=== PATIENT | female | born 1955 | race African-American/Black ===

== ENCOUNTER 2016-12-02 14:56 | Inpatient (IN) | payer MEDICARE, MEDICAID, OTHER ==
[~2016-12-02] VITALS: Ht 152.4 cm; Wt 100.0 kg
[2016-12-02 15:06] VITALS: BP 140/80; PULSE 109; RESP 18; TEMP 97.7; O2SAT 99
[2016-12-02 15:14] VITALS: RESP 16; O2SAT 98
[2016-12-02] MEDS ORDERED: SODIUM CHLORIDE 0.9% FLUSH 5 ML FLUSH IVF PRN (15:15)
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
--- NOTE | 2016-12-02 15:35 | RADRPT ---
EXAM DATE/TIME: 12/02/2016 15:22 [facility] COMPARISON: No previous studies available for comparison. INDICATIONS : Patient unresponsive. MEDICAL HISTORY : None. SURGICAL HISTORY : None. ENCOUNTER: Initial ACUITY: 1 day PAIN SCORE: Non-responsive. LOCATION: Bilateral chest FINDINGS: A single view of the chest demonstrates the lungs to be symmetrically aerated without evidence of mas s, infiltrate or effusion. The cardiomediastinal contours suggest left ventricular cardiomegaly. Os seous structures are intact. CONCLUSION: No acute disease. Pancho Souza MD on December 02, 2016 at 15:33 Board Certified Radiologist. This report was verified electronically.
[2016-12-02 16:00] VITALS: BP 164/81; PULSE 112; RESP 22; O2SAT 100
[2016-12-02 16:01] LABS: BASOPHIL % 0.5 % (0.0-2.0); EOSINOPHIL # 0.1 TH/MM3 (0-0.4); EOSINOPHIL % 0.8 % (0.0-4.0); HEMATOCRIT 43.1 % (35.0-46.0); HEMO FLAGS DIFF FINAL; LYMPH % 21.8 % (9.0-44.0); LYMPHOCYTE # 1.9 TH/MM3 (1.0-4.8); MEAN CELL VOLUME 86.8 FL (80.0-100.0); MEAN CORPUSCULAR HEMOGLOBIN 28.4 PG (27.0-34.0); MEAN CORPUSCULAR HGB CONC 32.7 % (32.0-36.0); MONO % 8.6 % (0.0-8.0); NEUT % 68.3 % (16.0-70.0); PLATELET COUNT 153 TH/MM3 (150-450); RED BLOOD COUNT 4.96 MIL/MM3 (4.00-5.30); RED CELL DISTRIBUTION WIDTH 15.7 % (11.6-17.2); WHITE BLOOD COUNT 8.8 TH/MM3 (4.0-11.0)
--- NOTE | 2016-12-02 16:01 | RADRPT ---
EXAM DATE/TIME: 12/02/2016 15:35 [facility] COMPARISON: No previous studies available for comparison. INDICATIONS : Altered mental status RADIATION DOSE: 48.36 CTDIvol (mGy) MEDICAL HISTORY : Unavailable SURGICAL HISTORY : Unavailable ENCOUNTER: Initial ACUITY: 1 day PAIN SCALE: 0/10 LOCATION: cranial TECHNIQUE: Multiple contiguous axial images were obtained of the head. Using automated exposure control and adjustment of the mA and/or kV according to patient size, radiation dose was kept as low as reasonably achievable to obtain optimal diagnostic quality images. FINDINGS: CEREBRUM: The ventricles are normal for age. No evidence of midline shift, mass lesion, hemorrha ge or acute infarction. No extra-axial fluid collections are seen. POSTERIOR FOSSA: The cerebellum and brainstem are intact. The 4th ventricle is midline. The cer ebellopontine angle is unremarkable. EXTRACRANIAL: The visualized portion of the orbits is intact. SKULL: The calvaria is intact. No evidence of skull fracture. CONCLUSION: Negative for an acute process. Sulaiman Sam MD FACR on December 02, 2016 at 15:59 Board Certified Radiologist. This report was verified electronically.
[2016-12-02 16:17] LABS: BLOOD, URINE NEG (NEG); GLUCOSE,URINE NEG (NEG); HYALINE CAST, URINE 1 /lpf (RARE); KETONE, URINE 80 mg/dL (NEG); MUCUS URINE FEW /lpf (OCC); NITRITE,URINE NEG (NEG); SQUAMOUS EPITHELIAL CELL URINE <1 /hpf (0-5); URINE COLOR YELLOW (YELLW/STRAW)
[2016-12-02 16:18] LABS: COMMENT (UR) CATH-CULTURE IND; CULTURE IF INDICATED CATH CULTURE IND
[2016-12-02 16:24] LABS: APTT (PATIENT) 24.4 SEC (24.3-30.1); PROTHROMBIN TIME - PATIENT 10.8 SEC (9.8-11.6)
[2016-12-02 16:25] LABS: ANION GAP 12 MEQ/L (5-15)
[2016-12-02 16:30] LABS: ALKALINE PHOSPHATASE 65 U/L (45-117); ALT (GPT) 17 U/L (10-53); AST (GOT) 13 U/L (15-37); BLOOD UREA NITROGEN 27 MG/DL (7-18); CHLORIDE 112 MEQ/L (98-107); GLOMERULAR FILTRATION RATE 59 ML/MIN (>89); POTASSIUM 3.7 MEQ/L (3.5-5.1); SODIUM (NA) 144 MEQ/L (136-145); TOTAL BILIRUBIN ADULT 1.3 MG/DL (0.2-1.0)
[2016-12-02 16:39] LABS: ACETAMINOPHEN LESS THAN 2.0 MCG/ML (10.0-30.0); CREATINE KINASE 87 U/L (26-192)
[2016-12-02 16:58] LABS: AMPHETAMINE, URINE NEG (NEG); BARBITURATES, URINE NEG (NEG); COCAINE, URINE NEG (NEG)
[2016-12-02 17:00] VITALS: BP 160/90; PULSE 100; RESP 19; O2SAT 98
[2016-12-02] MEDS ORDERED: SODIUM CHLOR 0.9% 1000 ML INJ 1,000 ML IV ONE (17:00)
[2016-12-02] MEDS ORDERED: FLUMAZENIL 0.5 MG/5 ML VIAL IV PUSH PRN (17:15)
[2016-12-02] MEDS ORDERED: LORazepam 1 MG TAB PO PRN (17:15)
[2016-12-02] MEDS ORDERED: LORazepam 2 MG TAB PO PRN (17:15)
[2016-12-02] MEDS ORDERED: ACETAMINOPHEN 325 MG TAB PO PRN (17:15)
[2016-12-02] MEDS ORDERED: NALOXONE HCL 0.4 MG/ML AMP IV PRN (17:15)
[2016-12-02] MEDS ORDERED: ONDANSETRON HCL 4 MG/2 ML VIAL IVP PRN (17:15)
[2016-12-02] MEDS ORDERED: LORazepam 2 MG/ML VIAL IV PUSH PRN ×4 (17:15)
[2016-12-02] MEDS ORDERED: SODIUM CHLORIDE 0.9% FLUSH 5 ML FLUSH FLUSH PRN (17:15)
[2016-12-02 17:36] LABS: LACTIC ACID GHOST NOT REPORTABLE
[2016-12-02 17:45] LABS: BLOOD GAS BASE EXCESS -5.8 mmol/L (-2-2); BLOOD GAS CARBOXYHEMOGLOBIN 1.8 % (0-4); BLOOD GAS HCO3 18 mmol/L (22-26); BLOOD GAS METHEMOGLOBIN 1.8 % (0-2); BLOOD GAS O2 HGB SATURATION 93 % (90-100); BLOOD GAS OXYGEN CONTENT 18.7 Vol % (12.0-20.0); BLOOD GAS PCO2 31 mmHg (38-42); BLOOD GAS PO2 79 mmHG (61-120); BLOOD GAS TOTAL HGB 14.3 G/DL (12.0-16.0); CRITICAL VALUE NO; DRAW SITE RT RADIAL; FIO2 21 %; NUMBER OF ARTERIAL PUNCTURES 2; STAT YES; TEMP CORR TO 98.6; ULNAR PULSE PRESENT
[2016-12-02] MEDS: SODIUM CHLOR 0.9% 1000 ML INJ 1,000 ML IV SCH (17:57)
[2016-12-02 18:00] VITALS: BP 149/75; PULSE 94; RESP 18
[2016-12-02 18:48] LABS: BETA-HYDROXYBUTYRATE 1.25 MMOL/L (0.00-0.39); MAGNESIUM 2.4 MG/DL (1.5-2.5)
[2016-12-02] MEDS: SODIUM CHLORIDE 0.9% FLUSH 5 ML FLUSH FLUSH SCH (20:51)
--- NOTE | 2016-12-02 22:59 | EKG ---
Date Performed: 12/02/2016 Time Performed: 15:08:25 PTAGE: 61 years EKG: Sinus rhythm WITH OCCASIONAL SUPRAVENTRICULAR PREMATURE COMPLEXES BORDERLINE LEFT AXIS DEVIATION MODERATE T-WAVE ABNORMALITY, CONSIDER ANTERIOR ISCHEMIA ABNORMAL ECG NO PREVIOUS TRACING DOCTOR: Angel Hemphill Interpretating Date/Time 12/02/2016 22:58:12
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
[2016-12-03] VITALS: BP 128/59; PULSE 68; RESP 18; TEMP 97.2; O2SAT 99
[2016-12-03 03:02] LABS: AUTOMATED NEUTROPHIL # 5.3 TH/MM3 (1.8-7.7); BASOPHIL % 0.6 % (0.0-2.0); EOSINOPHIL # 0.2 TH/MM3 (0-0.4); HEMATOCRIT 43.1 % (35.0-46.0); HEMO FLAGS DIFF FINAL; LYMPH % 25.4 % (9.0-44.0); LYMPHOCYTE # 2.1 TH/MM3 (1.0-4.8); MEAN CELL VOLUME 87.4 FL (80.0-100.0); MEAN CORPUSCULAR HEMOGLOBIN 28.4 PG (27.0-34.0); MEAN CORPUSCULAR HGB CONC 32.5 % (32.0-36.0); MONO % 8.5 % (0.0-8.0); NEUT % 63.5 % (16.0-70.0); PLATELET COUNT 121 TH/MM3 (150-450); RED BLOOD COUNT 4.93 MIL/MM3 (4.00-5.30); RED CELL DISTRIBUTION WIDTH 15.6 % (11.6-17.2); WHITE BLOOD COUNT 8.3 TH/MM3 (4.0-11.0)
[2016-12-03] MEDS: SODIUM CHLOR 0.9% 1000 ML INJ 1,000 ML IV SCH (03:13)
[2016-12-03 03:19] LABS: ALKALINE PHOSPHATASE 61 U/L (45-117); TOTAL BILIRUBIN ADULT 1.4 MG/DL (0.2-1.0)
[2016-12-03 03:27] LABS: ALT (GPT) 19 U/L (10-53); ANION GAP 12 MEQ/L (5-15); AST (GOT) 20 U/L (15-37); BICARBONATE 20.3 MEQ/L (21.0-32.0); BLOOD UREA NITROGEN 22 MG/DL (7-18); CHLORIDE 117 MEQ/L (98-107); GLOMERULAR FILTRATION RATE 97 ML/MIN (>89); SODIUM (NA) 149 MEQ/L (136-145)
--- NOTE | 2016-12-03 07:19 | PD ---
Data Data Last Documented VS Vital Signs Date Time Temp Pulse Resp B/P Pulse Ox O2 Delivery O2 Flow Rate FiO2 12/02/16 17:00 100 19 160/90 98 12/02/16 16:00 Room Air 12/02/16 15:06 97.7 Orders Electrocardiogram (12/02/16 ) Ammonia (12/02/16 15:09) Complete Blood Count With Diff (12/02/16 15:09) Comprehensive Metabolic Panel (12/02/16 15:09) Creatine Kinase (Cpk) (12/02/16 15:09) Prothrombin Time / Inr (Pt) (12/02/16 15:09) Act Partial Throm Time (Ptt) (12/02/16 15:09) Troponin I (12/02/16 15:09) Lactic Acid Sepsis Protocol (12/02/16 15:09) Urinalysis - C+S If Indicated (12/02/16 15:09) Blood Culture (12/02/16 15:09) Chest, Single Ap (12/02/16 15:09) Ct Brain W/O Iv Contrast(Rout) (12/02/16 15:09) Blood Glucose (12/02/16 15:09) Ecg Monitoring (12/02/16 15:09) Iv Access Insert/Monitor (12/02/16 15:09) Oximetry (12/02/16 15:09) Sodium Chloride 0.9% Flush (Ns Flush) (12/02/16 15:15) Drug Screen, Random Urine (12/02/16 15:09) Alcohol (Ethanol) (12/02/16 15:09) Salicylates (Aspirin) (12/02/16 15:09) Tylenol (Acetaminophen) (12/02/16 15:09) Cath For Specimen (12/02/16 15:09) Urine Culture (12/02/16 15:50) Sodium Chlor 0.9% 1000 Ml Inj (Ns 1000 M (12/02/16 17:00) Admit Order (Ed Use Only) (12/02/16 17:14) Labs Laboratory Tests Test 12/02/16 12/02/16 12/02/16 15:20 15:45 15:50 White Blood Count 8.8 TH/MM3 Red Blood Count 4.96 MIL/MM3 Hemoglobin 14.1 GM/DL Hematocrit 43.1 % Mean Corpuscular Volume 86.8 FL Mean Corpuscular Hemoglobin 28.4 PG Mean Corpuscular Hemoglobin 32.7 % Concent Red Cell Distribution Width 15.7 % Platelet Count 153 TH/MM3 Mean Platelet Volume 10.5 FL Neutrophils (%) (Auto) 68.3 % Lymphocytes (%) (Auto) 21.8 % Monocytes (%) (Auto) 8.6 % Eosinophils (%) (Auto) 0.8 % Basophils (%) (Auto) 0.5 % Neutrophils # (Auto) 6.0 TH/MM3 Lymphocytes # (Auto) 1.9 TH/MM3 Monocytes # (Auto) 0.8 TH/MM3 Eosinophils # (Auto) 0.1 TH/MM3 Basophils # (Auto) 0.0 TH/MM3 CBC Comment DIFF FINAL Differential Comment Prothrombin Time 10.8 SEC Prothromb Time International 1.0 RATIO Ratio Activated Partial 24.4 SEC Thromboplast Time Sodium Level 144 MEQ/L Potassium Level 3.7 MEQ/L Chloride Level 112 MEQ/L Carbon Dioxide Level 20.0 MEQ/L Anion Gap 12 MEQ/L Blood Urea Nitrogen 27 MG/DL Creatinine 1.12 MG/DL Estimat Glomerular Filtration 59 ML/MIN Rate Random Glucose 113 MG/DL Serum Osmolality 309 MOSM/KG Lactic Acid Level 2.3 mmol/L Calcium Level 9.2 MG/DL Total Bilirubin 1.3 MG/DL Aspartate Amino Transf 13 U/L (AST/SGOT) Alanine Aminotransferase 17 U/L (ALT/SGPT) Alkaline Phosphatase 65 U/L Ammonia 12 MCMOL/L Total Creatine Kinase 87 U/L Troponin I LESS THAN 0.02 NG/ML Total Protein 8.0 GM/DL Albumin 3.8 GM/DL Salicylates Level LESS THAN 1.7 MG/DL Acetaminophen Level LESS THAN 2.0 MCG/ML Ethyl Alcohol Level LESS THAN 3 MG/DL B-Hydroxybutyrate 1.69 MMOL/L Urine Opiates Screen NEG Urine Barbiturates Screen NEG Urine Amphetamines Screen NEG Urine Benzodiazepines Screen NEG Urine Cocaine Screen NEG Urine Cannabinoids Screen NEG Urine Color YELLOW Urine Turbidity CLEAR Urine pH 5.0 Urine Specific [place] 1.025 Urine Protein TRACE mg/dL Urine Glucose (UA) NEG mg/dL Urine Ketones 80 mg/dL Urine Occult Blood NEG Urine Nitrite NEG Urine Bilirubin NEG Urine Urobilinogen 2.0 MG/DL Urine Leukocyte Esterase NEG Urine WBC 1 /hpf Urine Squamous Epithelial <1 /hpf Cells Urine Hyaline Casts 1 /lpf Urine Mucus FEW /lpf Microscopic Urinalysis Comment CATH-CULTURE IND MDM Supervised Visit with THOM: Yes Narrative Course The history, exam, and medical decision-making in the associated midlevel provider note were completed with my assistance. I reviewed and agree with the findings presented. I attest that I had a [id number] encounter with the patient on the same day, and personally performed and documented my assessment and findings in the medical record. *My assessment and Findings: This is a 61-year-old female who was found in bed in her home which reportedly was in disarray, with empty bottles of isopropyl alcohol, who is confused and altered. On exam she does follow commands and have limited interaction with the examiner but does not answer questions appropriately. Her exam is nonfocal. Labs were obtained which demonstrate a normal osmolal gap of 5, and a normal anion gap so I doubt a toxic alcohol ingestion. CT of the head was reassuring. Differential is broad including stroke, toxic ingestion, and psychiatric disease. Patient will be admitted for further workup. Diagnosis Primary Impression: Altered mental status Qualified Code: R41.82 - Altered mental status, unspecified altered mental status type Scripts Unable to Obtain Active Prescriptions or Reported Meds Keesha Sanders MD Dec 03, 2016 07:19
[2016-12-03 08:00] VITALS: BP 117/66; PULSE 73; RESP 18; TEMP 97.6; O2SAT 97
[2016-12-03] MEDS: SODIUM CHLORIDE 0.9% FLUSH 5 ML FLUSH FLUSH SCH ×2 (08:55→19:27)
[2016-12-03 12:00] VITALS: BP 120/60; PULSE 77; RESP 17; TEMP 97.5; O2SAT 98
--- NOTE | 2016-12-03 14:23 | PD.CONS ---
Provisional Diagnosis Admission Date Dec 02, 2016 at 17:15 [place] I. Hypoactive delirium, r/O psychosis, R/O MDD History of Present Illness Service Psychiatry Consult Requested By Primary Care Physician Unknown HPI The patient is a 61 -year-old [place], unknown social history, no psychiatric history, who presents to the emergency room on 12/02/2016 with altered mental status. According to the emergency room documentation, the patients landlord called 911 because smoke was coming from her apartment. The patient was found lying in bed and not responding to emergency medical providers with empty bottles of isopropyl alcohol and other alcohol around. They found popcorn on the stove and her home was disheveled with a bedside commode next to her bed that she had been using. Review of Chest x-ray showed no acute disease. CT of the brain was negative for any acute process;Vital signs quite normal . CBC was unremarkable. ABG was without significant abnormality. Electrolytes were unremarkable except chloride was slightly elevated at 110 initially. Ammonia level was normal at 12. Urine with a large amount of ketones but was otherwise unremarkable. Salicylates less than 1.7 and acetaminophen level less than 2.0 are within normal parameters. Serum alcohol was less than 3. Urine toxicology screen is negative. A urine culture is pending. Patient consulted to psychiatry due to potential psychosis. On psychiatric evaluation patient is found laying down in her bed, she is alert, but distant and disengaged, she has a fair eye contact, but she seems to be selectively mute. She can answer some questions by yes or no, but stares and don't answer most of the questions. Review of Systems ROS Limitations: Unresponsive, Uncooperative Past Family Social History Coded Allergies: UNOBTAINABLE (Unverified , 12/02/16) Unable to Obtain Active Prescriptions or Reported Meds Current Medications Medications (Trade) Dose Ordered Sig/Telma Route Start Time Stop Time Status Last Admin (NS 1000 ml Inj) 1,000 ml @ 100 mls/hr Q10H IV 12/02/16 17:13 12/02/16 17:57 (NS Flush) 2 ml UNSCH PRN FLUSH 12/02/16 17:15 (NS Flush) 2 ml BID FLUSH 12/02/16 21:00 (Tylenol) 650 mg Q4H PRN PO 12/02/16 17:15 (Zofran Inj) 4 mg Q6H PRN IVP 12/02/16 17:15 (Narcan Inj) 0.4 mg UNSCH PRN IV 12/02/16 17:15 (Romazicon Inj) 0.2 mg Q1M PRN IV PUSH 12/02/16 17:15 (Ativan) 1 mg Q4H PRN PO 12/02/16 17:15 (Ativan Inj) 1 mg Q4H PRN IV PUSH 12/02/16 17:15 (Ativan) 2 mg Q2H PRN PO 12/02/16 17:15 (Ativan Inj) 2 mg Q2H PRN IV PUSH 12/02/16 17:15 (Ativan Inj) 2 mg Q1H PRN IV PUSH 12/02/16 17:15 (Ativan Inj) 2 mg Q15M PRN IV PUSH 12/02/16 17:15 (SEROquel) 25 mg BID@09,12 PO 12/04/16 09:00 UNV Physical Exam Vital Signs Vital Signs Date Time Temp Pulse Resp B/P Pulse Ox O2 Delivery O2 Flow Rate FiO2 12/03/16 12:00 97.5 77 17 120/60 98 12/02/16 18:00 Room Air Mental Status Examination Limited due to the lack of cooperation of the patient Appearance Overweight woman, [facility], age appearing, malodorous, disheveled, non-cooperative, mute, guarded Assessment & Plan Problem List: (1) Altered mental status Assessment & Plan: Patient does not cooperate with psychiatric assessment and refused to provide information. Unable to determined if patient is selectively mute, psychotic, depressed or with hypoactive delirium. Seems to be that the patient was not taking care of herself, as per EMS report patient was living in disheveled conditions which might point out to psychosis/ delirium There is no record of psychiatric history in [facility], no collateral information available at this moment Patient seems to be medically stable so far, no major abnormalities found. Will order Seroquel 25 mg twice a day which might be helpful in case of psychosis/delirium knockdown worker intervention to try to get collateral information Even though patient doesn't seem to be agitated, aggressive, disorganized, she might benefit of psychiatric admission for stabilization, Sitter recommended for safety We'll continue follow-up ICD Code: R41.82 Assessment & Plan Estimated LOS: days Problem Qualifiers (1) Altered mental status: Qualified Code: R41.82 - Altered mental status, unspecified altered mental status type Sami Heller MD Dec 03, 2016 14:23
[2016-12-03 16:00] VITALS: BP 128/59; PULSE 78; RESP 19; TEMP 99.3; O2SAT 96
--- NOTE | 2016-12-03 16:46 | HHI.PR ---
Subjective Remarks The patient initially started to nod yes or no but then refused to answer any questions. She is awake and alert. Objective Vitals Vital Signs Date Time Temp Pulse Resp B/P Pulse Ox O2 Delivery O2 Flow Rate FiO2 12/03/16 16:00 99.3 78 19 128/59 96 12/03/16 12:00 97.5 77 17 120/60 98 12/03/16 08:00 97.6 73 18 117/66 97 12/03/16 00:00 97.2 68 18 128/59 99 12/02/16 18:00 94 18 149/75 Room Air 12/02/16 17:00 100 19 160/90 98 I/O 12/02/16 12/02/16 12/02/16 12/03/16 12/03/16 12/03/16 07:00 15:00 23:00 07:00 15:00 23:00 Intake Total 240 ml 360 ml 950 ml Output Total 600 ml 250 ml Balance -360 ml 110 ml 950 ml Intake Oral 240 ml 360 ml IV Total 950 ml Output Urine Total 600 ml 250 ml # Bowel Movements 0 0 Result Diagram: 12/03/16 0206 12/03/16 0206 Imaging Last Impressions Head CT 12/02/16 1509 Signed Impressions: Service Date/Time: Friday, December 02, 2016 15:35 - CONCLUSION: Negative for an acute process. Sulaiman Sam MD FACR Chest X-Ray 12/02/16 1509 Signed Impressions: Service Date/Time: Friday, December 02, 2016 15:22 - CONCLUSION: No acute disease. Pancho Souza MD Objective Remarks GENERAL: Obese female in no acute distress. CARDIOVASCULAR: Normal rate and regular rhythm without murmurs, gallops, or rubs. RESPIRATORY: Breath sounds equal and clear to auscultation bilaterally. GASTROINTESTINAL: Abdomen soft, non-tender, non-distended. Normal active bowel sounds MUSCULOSKELETAL: Extremities without cyanosis, or edema. NEURO: Awake and alert but refused to answer any questions. PSYCH: Withdrawn. Appear to selectively refused to answer questions or cooperate. A/P Problem List: (1) Encephalopathy ICD Code: G93.40 Status: Acute (2) Acute renal failure ICD Code: N17.9 Status: Acute Assessment and Plan 61 y/o female who presents to the emergency room on 12/02/2016 with altered mental status. According to the emergency room documentation, the patients landlord called 911 because he noticed smoke was coming from her apartment. The patient was found lying in bed and not responding to emergency medical providers with empty bottles of isopropyl alcohol and other alcohol around. They found popcorn on the stove and her home was disheveled with a bedside commode next to her bed that she had been using. The patient was reportedly last seen on November 25, 2016. Encephalopathy -it is unclear what this patient's baseline is. Isopropyl alcohol or other alcohol ingestion might have contributed. However now her symptoms seems to be more psychiatric. - She did have ketonuria and elevated beta hydroxybutyrate. Therefore she might have taken some alcohol but this appears to be mild at this point and resolving. - Blood and urine cultures negative - Appreciate psychiatry following. Agree it appears the patient will need inpatient psychiatry. She was started on Seroquel. Monitor response - Follow-up BMP in a.m. Acute renal failure -resolved with IV hydration. - Avoid nephrotoxins GI prophylaxis: Stool softener PRN constipation. DVT PPx: Ewa Mcmillan MD Dec 03, 2016 16:46
[2016-12-03 20:00] VITALS: BP 129/74; PULSE 87; RESP 20; TEMP 98.3; O2SAT 95
[2016-12-04] VITALS: BP 136/71; PULSE 86; RESP 20; TEMP 98; O2SAT 97
[2016-12-04] MEDS ORDERED: SODIUM CHLORID 0.9% 500 ML INJ 500 ML IV ONE (03:45)
[2016-12-04 05:37] LABS: HEMATOCRIT 41.3 % (35.0-46.0); MEAN CELL VOLUME 88.6 FL (80.0-100.0); MEAN CORPUSCULAR HEMOGLOBIN 28.8 PG (27.0-34.0); MEAN CORPUSCULAR HGB CONC 32.5 % (32.0-36.0); PLATELET COUNT 120 TH/MM3 (150-450); RED BLOOD COUNT 4.66 MIL/MM3 (4.00-5.30); RED CELL DISTRIBUTION WIDTH 15.4 % (11.6-17.2); REVIEW FLAG FINAL; WHITE BLOOD COUNT 5.8 TH/MM3 (4.0-11.0)
[2016-12-04 05:50] LABS: BICARBONATE 19.5 MEQ/L (21.0-32.0); POTASSIUM 3.7 MEQ/L (3.5-5.1)
[2016-12-04 08:38] VITALS: BP 140/76; PULSE 60; RESP 20; TEMP 97.8
[2016-12-04] MEDS: QUEtiapine FUMARATE 25 MG TAB PO SCH ×3 (09:00→11:11)
[2016-12-04] MEDS: SODIUM CHLORIDE 0.9% FLUSH 5 ML FLUSH FLUSH SCH (09:18)
--- NOTE | 2016-12-04 09:21 | HHI.PR ---
Subjective Remarks The patient still refusing to talk. She is barely eating. When I ask her about her name she showed me her hospital ID band. She has been accepted to the med psych unit. Objective Vitals Vital Signs Date Time Temp Pulse Resp B/P Pulse Ox O2 Delivery O2 Flow Rate FiO2 12/04/16 08:38 97.8 60 20 140/76 12/04/16 00:00 98.0 86 20 136/71 97 12/03/16 20:00 98.3 87 20 129/74 95 12/03/16 16:00 99.3 78 19 128/59 96 12/03/16 12:00 97.5 77 17 120/60 98 I/O 12/03/16 12/03/16 12/03/16 12/04/16 12/04/16 12/04/16 07:00 15:00 23:00 07:00 15:00 23:00 Intake Total 240 ml 360 ml 1190 ml 500 ml Output Total 600 ml 250 ml 300 ml 0 ml Balance -360 ml 110 ml 890 ml 500 ml Intake Oral 240 ml 360 ml 240 ml 0 ml IV Total 950 ml 500 ml Output Urine Total 600 ml 250 ml 300 ml 0 ml Bladder Scan Volume Amount 400 ml # Bowel Movements 0 0 Result Diagram: 12/04/1651512/04/16515 Objective Remarks GENERAL: Obese female in no acute distress. CARDIOVASCULAR: Normal rate and regular rhythm without murmurs, gallops, or rubs. RESPIRATORY: Breath sounds equal and clear to auscultation bilaterally. GASTROINTESTINAL: Abdomen soft, non-tender, non-distended. Normal active bowel sounds MUSCULOSKELETAL: Extremities without cyanosis, or edema. NEURO: Awake and alert but refused to answer any questions. PSYCH: Withdrawn. Appear to selectively refused to answer questions or cooperate. A/P Problem List: (1) Encephalopathy ICD Code: G93.40 Status: Acute (2) Acute renal failure ICD Code: N17.9 Status: Acute Assessment and Plan 61 y/o female who presents to the emergency room on 12/02/2016 with altered mental status. According to the emergency room documentation, the patients landlord called 911 because he noticed smoke was coming from her apartment. The patient was found lying in bed and not responding to emergency medical providers with empty bottles of isopropyl alcohol and other alcohol around. They found popcorn on the stove and her home was disheveled with a bedside commode next to her bed that she had been using. The patient was reportedly last seen on November 25, 2016. Encephalopathy -it is unclear what this patient's baseline is. Isopropyl alcohol or other alcohol ingestion might have contributed. However now her symptoms seems to be more psychiatric. - She did have ketonuria and elevated beta hydroxybutyrate. Therefore she might have taken some alcohol but this appears to be mild at this point and resolving. - Blood and urine cultures negative - Appreciate psychiatry following. I agree the patient will be better serve at the med psych unit at this point. Acute renal failure -resolved with IV hydration. Discharge to med psych unit in stable condition Activity: Regular as tolerated Diet: Heart healthy as tolerated Follow-up: We'll need follow-up with PCP Meds: No new medications. She has been refusing to take Seroquel ordered by psychiatry. Ewa Pereira MD Dec 04, 2016 09:21
[2016-12-04] MEDS ORDERED: D5-1/2 NS + KCL 10 MEQ INJ 1,000 ML IV SCH (10:00)
[2016-12-04 12:48] VITALS: BP 111/71; PULSE 80; RESP 18; TEMP 99.7; O2SAT 95
[2016-12-04 17:27] VITALS: BP 114/74; PULSE 78; RESP 18; TEMP 97.7; O2SAT 95
--- NOTE | 2016-12-04 17:31 | EKG ---
Date Performed: 12/03/2016 Time Performed: 20:54:13 PTAGE: 61 years EKG: Sinus rhythm WITH FREQUENT SUPRAVENTRICULAR PREMATURE COMPLEXES BORDERLINE LEFT AXIS DEVIATION LOW QRS VOLTAGE IN PRECORDIAL LEADS MODERATE INTRAVENTRICULAR CONDUCTION DELAY MODERATE T-WAVE ABNORMALITY, CONSIDER AN TEROLATERAL ISCHEMIA Since previous tracing, no significant change noted ABNORMAL ECG PREVIOUS TRACING : 12/02/2016 15.08 DOCTOR: Zully Tse Interpretating Date/Time 12/04/2016 17:28:49
[2016-12-05] MEDS ORDERED: LABETALOL HCL 100 MG/20 ML VIAL IV PRN (05:45)
[2016-12-07] MEDS ORDERED: RESP: ALBUTEROL 2.5 MG/IPRATROPIUM 0.5 MG NEB (PRN) ONE (07:01)
== END 2016-12-04 17:52 | DRG 682 ==
LOC: NEPE 14:56 → NEDA 17:15 → N07B 22:20
PROVIDERS: ADMIT Family Medicine; ATTEND Family Medicine
DX: N17.9 Acute kidney failure, unspecified (principal); G93.40 Encephalopathy, unspecified; Z68.41 Body mass index [BMI] 40.0-44.9, adult; R82.4 Acetonuria; E66.01 Morbid (severe) obesity due to excess calories; E86.0 Dehydration; F94.0 Selective mutism
CPT/HCPCS: 36600; 70450; 71010; 80048; 80053; 80307; 80320; 80329; 81001; 82010; 82140; 82550; 82805; 83605; 83735; 83930; 84484; 85025; 85027; 85610; 85730; 87040; 87086; 93005; 96374; G0480; J3480; J7030; J7040; P9612

== ENCOUNTER 2016-12-04 14:35 | Inpatient (IN) | payer OTHER, MEDICARE ==
[2016-12-04] MEDS ORDERED: LORazepam 2 MG/ML VIAL IM PRN (18:45)
[2016-12-04] MEDS ORDERED: LORazepam 1 MG TAB PO PRN (18:45)
[2016-12-04] MEDS ORDERED: ALUMINUM/MAGNESIUM/SIMETH 30 ML CUP PO PRN (18:45)
[2016-12-04] MEDS ORDERED: MAGNESIUM HYDROXIDE SUSP 30 ML CUP PO PRN (18:45)
[2016-12-04 18:59] VITALS: BP 135/68; PULSE 85; RESP 16; TEMP 100.1; O2SAT 95
[2016-12-04] MEDS: REMOVE OLD NICOTINE PATCH T-DERMAL SCH (20:34)
[2016-12-05 04:50] VITALS: BP_SYST 190; BP_SYST 210; BP_DIAS 100; BP_DIAS 130; PULSE 123; RESP 16; TEMP 97.7; O2SAT 97
[2016-12-05 05:00] VITALS: O2SAT 95
[2016-12-05] MEDS ORDERED: hydrALAZINE HCL 20 MG/ML VIAL IV PUSH ONE (05:15)
--- NOTE | 2016-12-05 05:54 | HHI.PR ---
Addendum to Inpatient Note Addendum Reason: Additional Documentation Additional Information S: Residents paged for eHctor for hypertension with a systolic blood pressure over 200. Went to evaluate patient on med psych floor. Patient is reportedly mute at baseline. When we arrived to patient room, Hector nurse at bedside. After adjusting blood pressure cuff and increasing blood pressure cuff size, patient relatively normotensive at 150s over 70s. O: Vitals reviewed. After adjusting blood pressure cuff, patient normotensive at 150s over 70s. Pulse elevated at 100s to 110s. Patient satting well on room air. Gen.: Obese female lying in bed half asleep and in no acute distress HEENT: Normocephalic atraumatic. Extraocular motions intact. Moist mucous membranes. Cardiovascular: Tachycardic rate, regular rhythm. Respiratory: Lungs clear to auscultation bilaterally Skin/extremities: Warm and well perfused without any edema Neuro/psych: Patient mute at baseline. Not verbally responding to any questions. Imaging: Patient had recent dry CT of head, which was negative for any acute process. A/P: 61-year-old female who was admitted for isopropyl alcohol ingestion, possible toxic overdose, presented with hypertension. From chart review, patient does appear to have some labile blood pressures. Elevated blood pressures seem to correlate with tachycardia. Differential diagnosis includes alcohol withdrawal, alcoholic neuropathy with autonomic dysfunction, other neurological abnormality causing autonomic dysfunction, or human error in applying blood pressure cuff. Prior to transfer to [facility] floor, was on CIWA protocol but did not require any Ativan. Per nurse report, patient would've scored a 0 on CIWA scoring because patient has not had any sweating, tremor, agitation, etc. Increased vital signs monitoring from every 12 hours to every 4 hours Patient seen and discussed with Dr. Sergio Marte. Sergio Hale MD R1 Dec 05, 2016 05:54
[2016-12-05] MEDS: NICOTINE 21 MG/24 HR PATCH T-DERMAL SCH (09:00)
--- NOTE | 2016-12-05 11:23 | HHI.HP ---
Provisional Diagnosis Admission Date Dec 04, 2016 at 14:35 [place] I. Unspecified psychosis vs MDD with psychotic features [place] II. R/O personality disorder Certification of Person's Competence To Provide Express and Informed Consent I have personally examined Sherron Anne , a person being served at [facility] on, Dec 05, 2016 11:18. Express and informed consent means consent voluntarily given in writing, by a competent person, after sufficient explanation and disclosure of the subject matter involved to enable the person to make a knowing and willful decision without any element of force, fraud, deceit, duress, or other form of constraint or coercion. This person is 18 years of age or older, is not now known to be incompetent to consent to treatment with a guardian advocate, and does not have a health care surrogate or proxy currently making medical treatment decisions. I have found this person to be one of the following: [] Competent to provide express and informed consent, as defined above, for voluntary admission to this facility and is competent to provide express and informed consent for treatment. He/she has the consistent capacity to make well reasoned, willful, and knowing decisions concerning his or her medical or mental health treatment. The person fully and consistently understands the purpose of the admission for examination/placement and is fully capable of personally exercising all rights assured [place] [X] Incompetent to provide express and informed consent to voluntary admission, and this is incompetent to provide express and informed consent to treatment. The person must be transferred to involuntary status and a petition for a guardian advocate filed with the Circuit Court. [] Refusing to provide express and informed consent to voluntary admission but is competent to provide express and informed consent for treatment. The person must be discharged or transferred to involuntary status. Form shall be completed within 24 hours of a person's arrival at the receiving facility and filed in the clinical record of each person: 1. Admitted on a voluntary basis 2. Permitted to provide express and informed consent to his/her own treatment 3. Allowed to transfer from involuntary to voluntary status 4. Prior to permitting a person to consent to his or her own treatment after having been previously found incompetent to consent to treatment. History of Present Illness Capacity: Lacks Capacity HPI The patient is a 61 year-old woman with a known psychiatric history, who was admitted for isopropyl alcohol ingestion, possible toxic overdose, presented with hypertension. Seen by me initially on 12/03/2016 and no changes in her mental status and psychiatric presentation have happened since then. Patient is still refusing to talk, she is alert, attends she has a good eye contact, she does her primary necessities, she feed herself, she goes to the back she is compliant with medication on and off, but she refuses to talk. Other than this selective mutism, the patient does not display aggressive or disorganized behavior, agitation, internal preoccupation, self- talking at the moment of this evaluation. Last night Halicat was activated due to hypertensive crisis. During this evaluation there is no evidence of alcohol withdrawal symptoms. Past Family Social History Coded Allergies: UNOBTAINABLE (Unverified , 12/02/16) Unable to Obtain Active Prescriptions or Reported Meds Current Medications Medications (Trade) Dose Ordered Sig/Telma Route Start Time Stop Time Status Last Admin (Ativan) 1 mg Q6H PRN PO 12/04/16 18:45 Hold (Ativan Inj) 1 mg Q6H PRN IM 12/04/16 18:45 (Tylenol) 650 mg Q4H PRN PO 12/04/16 18:45 (Milk Of Magnesia Liq) 30 ml DAILY PRN PO 12/04/16 18:45 (Mag-Al Plus Susp Liq) 30 ml Q6H PRN PO 12/04/16 18:45 (Habitrol 21 Mg Patch.24 Hr) 1 patch DAILY T-DERMAL 12/05/16 09:00 Miscellaneous Information 1 HS T-DERMAL 12/04/16 21:00 12/04/16 20:34 (SEROquel) 25 mg BID@09,12 PO 12/05/16 12:00 UNV Social History unknown Physical Exam Vital Signs Vital Signs Date Time Temp Pulse Resp B/P Pulse Ox O2 Delivery O2 Flow Rate FiO2 12/05/16 05:00 95 21 12/05/16 04:50 97.7 123 16 190/130 210/100 I/O 12/04/16 12/04/16 12/05/16 08:00 16:00 00:00 Intake Total 120 ml Balance 120 ml Lab Results Labs reviewed Mental Status Examination Mental status limited due to the lack of cooperation Appearance Overweight woman, hospital pajamas, age appearing, poor hygiene , uncooperative, selectively mute, but she is calm Speech: Other (selectively mute) Assessment & Plan Problem List: (1) Unspecified psychosis Assessment & Plan: The patient is a 61 year-old woman with a known psychiatric history, who was admitted for isopropyl alcohol ingestion, possible toxic overdose, presented with hypertension. Seen by me initially on and no changes in her mental status and psychiatric presentation have happened since then. Patient is still refusing to talk, she is alert, attends she has a good eye contact, she does her primary necessities, she feed herself, she goes to the back she is compliant with medication on and off, but she refuses to talk. Other than this selective mutism, the patient does not display aggressive or disorganized behavior, agitation, internal preoccupation, self-talking at the moment of this evaluation. At this point is difficult to define the etiology of patient mutism, unknown if the cause of psychotic/mood/ personality. We'll continue monitoring closely the patient. Support, motivation psycho education provided. Collateral information is crucial in order to complete the psychiatric assessment and understanding what is going on. We will start Seroquel 25 mg twice a day to help with a potential underlying psychosis/mood, but also to help the patient with sleep. dimension [employer] worker intervention for psychotherapy, psychosocial assessment, try to find family members. We will consider psychiatric for second opinion, also will consult hospitalist for uncontrolled hypertension. ICD Code: F29 Assessment & Plan Estimated LOS: Sami Hartley MD Dec 05, 2016 11:23
[2016-12-05] MEDS: QUEtiapine FUMARATE 25 MG TAB PO SCH (12:00)
[2016-12-05] MEDS ORDERED: cloNIDine HCL 0.1 MG TAB PO PRN (15:30)
--- NOTE | 2016-12-05 16:06 | HHI.PYPN ---
Subjective Remarks This is a request for a second opinion for Dr. Olivarez. Patient was seen, admission note reviewed and case discussed with nursing. Pt was selectively mute with doctor yesterday and was initially talkative saying she had mild hip pain. When I began asking about the circumstances of her admission, she became mute again. WHen asked if it was suicide it looked like she wanted to cry. Would not answer questions about psychosis. Patient is selective with medications, but taking her antiphypertensives at this time. BP has improved. 170/90, hr-120 Objective Alert: Yes [place]: Person Mood: Depressed, Oppositional Affect: Flat Memory Intact: Immediate Hallucinations: Other (would not answer) Delusions: No Delusion Type: Other (would not answer) Suicidal: Ideation (would not answer) Homicidal: Ideation (would not answer) Insight/Judgement poor Vitals/IOs Vital Signs Date Time Temp Pulse Resp B/P Pulse Ox O2 Delivery O2 Flow Rate FiO2 12/05/16 05:00 95 21 12/05/16 04:50 97.7 123 16 190/130 210/100 Intake and Output 12/04/16 12/04/16 12/05/16 08:00 16:00 00:00 Intake Total 120 ml Balance 120 ml Assessment & Plan Problem List: (1) Unspecified psychosis ICD Code: F29 Assessment & Plan I agree with first opinion to continue petition, criteria include possible suicidal attempt and possible psychosis. HR remains elevated, EKG was ordered. 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 Justification for Cont. Inpt. would decompensate in a less restrictive setting. Fran Cabral DO Dec 05, 2016 16:06
--- NOTE | 2016-12-05 16:44 | PD.CONS ---
HPI Service [facility] Consult Requested By Psychiatric team Reason for Consult Uncontrolled hypertension Primary Care Physician Unknown Diagnoses: History of Present Illness This is a 61-year-old female patient who was originally admitted to [facility] on 12/02/2016 after suspected isopropyl alcohol ingestion. Is not forthcoming with information. The only thing patient tells us is that, "I just want to rest." Patient unable to find any meaningful information. Information gathered from patient as well as prior computerized charting. Patient is currently an inpatient psychiatric center with been consulted for uncontrolled hypertension. Patient's last available blood pressure reading was at 0450 this morning 190/130 and 210/100, with heart rate of 123 temperature of 97.7 and pulse oxygenation 97% on room air. Per nurses patient has been refusing to have vital signs checked.. Patient checked manually by RN will return in the room reading of 170/90. Review of Systems ROS Limitations: Uncooperative, Refused, Poor Historian Past Family Social History Allergies: Coded Allergies: UNOBTAINABLE (Unverified , 12/02/16) Past Medical History Unable to obtain Past Surgical History Unable to obtain Reported Medications Unable to obtain Active Ordered Medications Current Medications Medications (Trade) Dose Ordered Sig/Telma Route Start Time Stop Time Status Last Admin (Ativan) 1 mg Q6H PRN PO 12/04/16 18:45 Hold (Ativan Inj) 1 mg Q6H PRN IM 12/04/16 18:45 (Tylenol) 650 mg Q4H PRN PO 12/04/16 18:45 (Milk Of Magnesia Liq) 30 ml DAILY PRN PO 12/04/16 18:45 (Mag-Al Plus Susp Liq) 30 ml Q6H PRN PO 12/04/16 18:45 (Habitrol 21 Mg Patch.24 Hr) 1 patch DAILY T-DERMAL 12/05/16 09:00 Miscellaneous Information 1 HS T-DERMAL 12/04/16 21:00 12/04/16 20:34 (SEROquel) 25 mg BID@09,12 PO 12/05/16 12:00 (Catapres) 0.1 mg Q6H PRN PO 12/05/16 15:30 12/05/16 15:58 Family History Unable to obtain Social History Unable to obtain Physical Exam Vital Signs Vital Signs Date Time Temp Pulse Resp B/P Pulse Ox O2 Delivery O2 Flow Rate FiO2 12/05/16 05:00 95 21 12/05/16 04:50 97.7 123 16 190/130 97 210/100 12/04/16 18:59 100.1 85 16 135/68 95 Physical Exam GENERAL: This is a well-nourished, well-developed patient. HEAD: Atraumatic. Normocephalic. No temporal or scalp tenderness. EYES: Extraocular motions intact. No scleral icterus. No injection or drainage. CARDIOVASCULAR: Regular rate and rhythm without murmurs, gallops, or rubs. RESPIRATORY: Clear to auscultation. Breath sounds equal bilaterally. No wheezes , rales, or rhonchi. GASTROINTESTINAL: Abdomen soft, non-tender, nondistended MUSCULOSKELETAL: Trace bilateral lower extremity edema. No calf tenderness. Negative Homans sign bilaterally. NEUROLOGICAL: Awake and alert, minimal verbal response. Moves all 4 extremities spontaneously does not follow commands. 4 out of 5 muscle strength in all muscle groups. Result Diagram: 12/06/16 0754 12/08/16 0736 Assessment and Plan Assessment and Plan This is a 61-year-old female patient who was originally admitted to [facility] on 12/02/2016 after suspected isopropyl alcohol ingestion. Is not forthcoming with information. The only thing patient tells us is that, "I just want to rest." Patient unable to find any meaningful information. Information gathered from patient as well as prior computerized charting. Patient is currently an inpatient psychiatric center with been consulted for uncontrolled hypertension. Isolated elevated blood pressure, associated with tachycardia Possibly related to agitation, withdrawal or early infection Recommend taking vital signs every 4 hours Start clonidine 0.1 mg every 6 hours as needed for blood pressure greater than 160/90 UA C&S if indicated CXR 12/02/2016 showed no acute disease Suicide attempt management per psychiatric team DVT prophylaxis early ambulation physical therapies been consulted Plan of care discussed with nursing patient Written by Sherry Crawford, acting as scribe for Dr. Thomas on 12/05/16 at 16:43. UA resulted consistent with UTI Start Rocephin IV await culture results Attending Statement The documentation accurately reflects the work performed [id number] by me on at 16:43. Sherry Crawford Dec 05, 2016 16:44 Arnold Penaloza MD Dec 10, 2016 22:45
[2016-12-05 17:03] LABS: BACTERIA, URINE RARE /hpf; BLOOD, URINE MOD (NEG); COMMENT (UR) CATH-CULTURE IND; CULTURE IF INDICATED CATH CULTURE IND; GLUCOSE,URINE NEG (NEG); KETONE, URINE 10 mg/dL (NEG); MUCUS URINE FEW /lpf (OCC); NITRITE,URINE POS (NEG); SQUAMOUS EPITHELIAL CELL URINE <1 /hpf (0-5); URINE COLOR YELLOW (YELLW/STRAW)
[2016-12-05 17:14] VITALS: BP 170/90; PULSE 120; RESP 16; TEMP 97.9; O2SAT 98
--- NOTE | 2016-12-05 17:42 | EKG ---
Date Performed: 12/05/2016 Time Performed: 16:29:04 PTAGE: 61 years EKG: SINUS TACHYCARDIA WITH OCCASIONAL VENTRICULAR PREMATURE COMPLEXES WITH OCCASIONAL SUPRAVENT RICULAR PREMATURE COMPLEXES ABNORMAL RHYTHM ECG PREVIOUS TRACING : 12/03/2016 20.54 Compared to previous tracing, anterolateral T wave inversio n has nearly resolved, PVC is now present. DOCTOR: Nilson Collado Interpretating Date/Time 12/05/2016 17:41:49
[2016-12-05 20:30] VITALS: BP 131/71; PULSE 91
[2016-12-05] MEDS: cefTRIAXone INJ 1,000 MG in SODIUM CHLORIDE 0.9% INJ 100 ML IV SCH (20:51)
[2016-12-05] MEDS: REMOVE OLD NICOTINE PATCH T-DERMAL SCH (21:00)
[2016-12-05 23:00] VITALS: BP 117/60; PULSE 82; RESP 16; TEMP 97.8; O2SAT 96
[2016-12-06 03:00] VITALS: BP 125/63; PULSE 79; RESP 17; TEMP 97.4; O2SAT 96
[2016-12-06 08:14] LABS: AUTOMATED NEUTROPHIL # 3.8 TH/MM3 (1.8-7.7); BASOPHIL % 0.7 % (0.0-2.0); EOSINOPHIL # 0.2 TH/MM3 (0-0.4); EOSINOPHIL % 2.6 % (0.0-4.0); HEMATOCRIT 41.1 % (35.0-46.0); HEMO FLAGS DIFF FINAL; LYMPH % 28.4 % (9.0-44.0); LYMPHOCYTE # 1.8 TH/MM3 (1.0-4.8); MEAN CELL VOLUME 87.6 FL (80.0-100.0); MEAN CORPUSCULAR HEMOGLOBIN 28.1 PG (27.0-34.0); MEAN CORPUSCULAR HGB CONC 32.1 % (32.0-36.0); MONO % 7.6 % (0.0-8.0); NEUT % 60.7 % (16.0-70.0); PLATELET COUNT 129 TH/MM3 (150-450); RED CELL DISTRIBUTION WIDTH 15.6 % (11.6-17.2); WHITE BLOOD COUNT 6.3 TH/MM3 (4.0-11.0)
[2016-12-06 08:40] LABS: ANION GAP 10 MEQ/L (5-15); BICARBONATE 22.3 MEQ/L (21.0-32.0); BLOOD UREA NITROGEN 12 MG/DL (7-18); CHLORIDE 110 MEQ/L (98-107); GLOMERULAR FILTRATION RATE 75 ML/MIN (>89); HDL CHOLESTEROL 61.4 MG/DL (40.0-60.0); LDL CHOLESTEROL 125 MG/DL (0-99); POTASSIUM 3.4 MEQ/L (3.5-5.1); SODIUM (NA) 142 MEQ/L (136-145)
[2016-12-06] MEDS: QUEtiapine FUMARATE 25 MG TAB PO SCH ×2 (08:57→12:00)
[2016-12-06] MEDS: NICOTINE 21 MG/24 HR PATCH T-DERMAL SCH (09:00)
[2016-12-06 09:51] LABS: HEMOGLOBIN A1a 1.3 %; HEMOGLOBIN A1b 1.5 %; HEMOGLOBIN Ao 85.4 %; HEMOGLOBIN F 0.2 %; HEMOGLOBIN LA1C 1.9 %; HEMOGLOBIN P3 3.5 %
--- NOTE | 2016-12-06 10:47 | HHI.PR ---
Subjective Remarks Follow up: HTN, UTI. Patient resting in bed appears to be in no acute distress. Patient currently nonverbal, as she has been selectively mute today. Objective Vitals Vital Signs Date Time Temp Pulse Resp B/P Pulse Ox O2 Delivery O2 Flow Rate FiO2 12/06/16 03:00 97.4 79 17 125/63 96 12/05/16 23:00 97.8 82 16 117/60 96 Manual Cuff/Auscultation 12/05/16 20:30 91 131/71 12/05/16 17:14 97.9 120 16 170/90 98 I/O 12/05/16 12/05/16 12/05/16 12/06/16 12/06/16 12/06/16 07:00 15:00 23:00 07:00 15:00 23:00 Intake Total 480 ml 360 ml 360 ml Output Total 420 ml Balance 60 ml 360 ml 360 ml Intake Oral 480 ml 360 ml 360 ml Output Urine Total 420 ml # Voids 3 0 2 # Bowel Movements 0 0 0 Result Diagram: 12/06/16 0754 12/06/16 0754 Objective Remarks GENERAL: This is a well-nourished, well-developed patient- nonverbal HEAD: Atraumatic. Normocephalic. No temporal or scalp tenderness. EYES: Extraocular motions intact. No scleral icterus. No injection or drainage. CARDIOVASCULAR: Regular rate and rhythm without murmurs, gallops, or rubs. RESPIRATORY: Clear to auscultation. Breath sounds equal bilaterally. No wheezes , rales, or rhonchi. GASTROINTESTINAL: Abdomen soft, non-tender, nondistended MUSCULOSKELETAL: Trace bilateral lower extremity edema. No calf tenderness. Negative Homans sign bilaterally. NEUROLOGICAL:resting, non verbal, does not follow commands. Moves all 4 extremities spontaneously does not follow commands. 4 out of 5 muscle strength in all muscle groups. A/P Assessment and Plan This is a 61-year-old female patient who was originally admitted to [facility] on 12/02/2016 after suspected isopropyl alcohol ingestion. Is not forthcoming with information. The only thing patient tells us is that, "I just want to rest." Patient unable to find any meaningful information. Information gathered from patient as well as prior computerized charting. Patient is currently an inpatient psychiatric center with been consulted for uncontrolled hypertension. Isolated elevated blood pressure, associated with tachycardia Possibly related to agitation, withdrawal or early infection Recommend taking vital signs every 4 hours Start clonidine 0.1 mg every 6 hours as needed for blood pressure greater than 160/90 CXR 12/02/2016 showed no acute disease UTI Rocephin IV started follow urine culture Suicide attempt management per psychiatric team DVT prophylaxis early ambulation physical therapies been consulted Plan of care discussed with nursing patient Written by Sherry Crawford, acting as scribe for Dr. Thomas on 12/06/16 at 10:45. Attending Statement The documentation accurately reflects the work performed [id number] by me on .12/06/16 at 10:45. Sherry Crawford Dec 06, 2016 10:47 Arnold Penaloza MD Dec 10, 2016 22:52
[2016-12-06 12:00] VITALS: BP 121/68; PULSE 92; RESP 18; TEMP 97.8
--- NOTE | 2016-12-06 13:08 | HHI.PYPN ---
Subjective Remarks Patient was seen today for psychiatric reevaluation, she was found calm, is still is selectively mute, but eating, alert, and answering most of our questions with her head. She has been seen now frequently talking to herself and responding to internal stimuli, however she hasn't been agitated or aggressive. She has been fully compliant with medications. Review of Systems ROS Limitations: Uncooperative Objective Alert: Yes [place]: Person Mood: Depressed, Oppositional Affect: Flat Memory Intact: Immediate Hallucinations: Other (would not answer) Delusions: No Delusion Type: Other (would not answer) Suicidal: Ideation (would not answer) Homicidal: Ideation (would not answer) Insight/Judgement poor Labs Test 12/05/16 12/06/16 15:33 07:54 Urine Color YELLOW Urine Turbidity CLEAR Urine pH 5.0 Urine Specific [place] 1.016 Urine Protein NEG mg/dL Urine Glucose (UA) NEG mg/dL Urine Ketones 10 mg/dL Urine Occult Blood MOD Urine Nitrite POS Urine Bilirubin NEG Urine Urobilinogen LESS THAN 2.0 MG/DL Urine Leukocyte Esterase LARGE Urine RBC 24 /hpf Urine WBC 24 /hpf Urine Squamous Epithelial <1 /hpf Cells Urine Bacteria RARE /hpf Urine Mucus FEW /lpf Microscopic Urinalysis Comment CATH-CULTURE IND White Blood Count 6.3 TH/MM3 Red Blood Count 4.70 MIL/MM3 Hemoglobin 13.2 GM/DL Hematocrit 41.1 % Mean Corpuscular Volume 87.6 FL Mean Corpuscular Hemoglobin 28.1 PG Mean Corpuscular Hemoglobin 32.1 % Concent Red Cell Distribution Width 15.6 % Platelet Count 129 TH/MM3 Mean Platelet Volume 11.2 FL Neutrophils (%) (Auto) 60.7 % Lymphocytes (%) (Auto) 28.4 % Monocytes (%) (Auto) 7.6 % Eosinophils (%) (Auto) 2.6 % Basophils (%) (Auto) 0.7 % Neutrophils # (Auto) 3.8 TH/MM3 Lymphocytes # (Auto) 1.8 TH/MM3 Monocytes # (Auto) 0.5 TH/MM3 Eosinophils # (Auto) 0.2 TH/MM3 Basophils # (Auto) 0.0 TH/MM3 CBC Comment DIFF FINAL Differential Comment Sodium Level 142 MEQ/L Potassium Level 3.4 MEQ/L Chloride Level 110 MEQ/L Carbon Dioxide Level 22.3 MEQ/L Anion Gap 10 MEQ/L Blood Urea Nitrogen 12 MG/DL Creatinine 0.92 MG/DL Estimat Glomerular Filtration 75 ML/MIN Rate Random Glucose 105 MG/DL Hemoglobin A1c 5.6 % Calcium Level 8.9 MG/DL Triglycerides Level 75 MG/DL Cholesterol Level 201 MG/DL LDL Cholesterol 125 MG/DL HDL Cholesterol 61.4 MG/DL Cholesterol/HDL Ratio 3.27 RATIO Date/Time Procedure Status Source Growth 12/05/16 15:33 Urine Culture - Preliminary Resulted Urine Catheterized Urine Gram Negative [place] Vitals/IOs Vital Signs Date Time Temp Pulse Resp B/P Pulse Ox O2 Delivery O2 Flow Rate FiO2 12/06/16 03:00 97.4 79 17 125/63 96 12/05/16 05:00 21 Intake and Output 12/05/16 12/05/16 12/06/16 08:00 16:00 00:00 Intake Total 360 ml 360 ml Output Total 420 ml Balance -60 ml 360 ml Assessment & Plan Problem List: (1) Unspecified psychosis Assessment & Plan: Will increase Seroquel to 51 g twice a day for psychosis. ICD Code: F29 Assessment & Plan Estimated LOS: days Justification for Cont. Inpt. Patient is acutely psychotic and is to continue psychiatric hospitalization for stabilization Sami Heller MD Dec 06, 2016 13:08
[2016-12-06 17:09] VITALS: BP 127/80; PULSE 80; RESP 22; TEMP 98.2; O2SAT 98
[2016-12-06] MEDS: cefTRIAXone INJ 1,000 MG in SODIUM CHLORIDE 0.9% INJ 100 ML IV SCH (20:41)
[2016-12-06] MEDS: REMOVE OLD NICOTINE PATCH T-DERMAL SCH (20:46)
[2016-12-07 06:11] VITALS: BP 103/64; PULSE 78; RESP 20; TEMP 98; O2SAT 94
[2016-12-07] MEDS: POTASSIUM CHLORIDE 20 MEQ CONTROLLED RELEASE TAB PO ONE (08:30)
[2016-12-07] MEDS: NICOTINE 21 MG/24 HR PATCH T-DERMAL SCH (09:00)
[2016-12-07] MEDS: QUEtiapine FUMARATE 25 MG TAB PO SCH ×2 (09:00→12:00)
--- NOTE | 2016-12-07 11:47 | HHI.PR ---
Subjective Remarks Follow up on patient with HTN and UTI. Patient resting in bed asleep, appears to be in no acute distress, easily arousable. Patient currently nonverbal, as she has been selectively mute today but does shake her head yes and is agreeable to examination. Patient indicates denial of any pain including chest or abdominal pain as well as SOB, N/V or any other medical complaints by shaking her head no when questioned. Objective Vitals Vital Signs Date Time Temp Pulse Resp B/P Pulse Ox O2 Delivery O2 Flow Rate FiO2 12/07/16 06:11 98.0 78 20 103/64 94 12/06/16 17:09 98.2 80 22 127/80 98 12/06/16 12:00 97.8 92 18 121/68 I/O 12/06/16 12/06/16 12/06/16 12/07/16 12/07/16 12/07/16 07:00 15:00 23:00 07:00 15:00 23:00 Intake Total 360 ml 480 ml 600 ml 100 ml Balance 360 ml 480 ml 600 ml 100 ml Intake Oral 360 ml 480 ml 600 ml 0 ml IV Total 100 ml # Voids 2 4 2 # Bowel Movements 0 Result Diagram: 12/06/16 0754 12/06/16 0754 Objective Remarks GENERAL: This is a well-nourished, well-developed patient- nonverbal HEAD: Atraumatic. Normocephalic. No temporal or scalp tenderness. EYES: Extraocular motions intact. No scleral icterus. No injection or drainage. CARDIOVASCULAR: Regular rate and rhythm without murmurs, gallops, or rubs. RESPIRATORY: Clear to auscultation. Breath sounds equal bilaterally. No wheezes , rales, or rhonchi. GASTROINTESTINAL: Abdomen soft, non-tender, nondistended MUSCULOSKELETAL: Trace bilateral lower extremity edema. No calf tenderness. NEUROLOGICAL:resting, non verbal, does not follow commands. Moves all 4 extremities spontaneously does not follow commands. 4 out of 5 muscle strength in all muscle groups. Medications and IVs Current Medications Medications (Trade) Dose Ordered Sig/Telma Route Start Time Stop Time Status Last Admin (Ativan) 1 mg Q6H PRN PO 12/04/16 18:45 (Ativan Inj) 1 mg Q6H PRN IM 12/04/16 18:45 (Tylenol) 650 mg Q4H PRN PO 12/04/16 18:45 (Milk Of Magnesia Liq) 30 ml DAILY PRN PO 12/04/16 18:45 (Mag-Al Plus Susp Liq) 30 ml Q6H PRN PO 12/04/16 18:45 (Habitrol 21 Mg Patch.24 Hr) 1 patch DAILY T-DERMAL 12/05/16 09:00 Miscellaneous Information 1 HS T-DERMAL 12/04/16 21:00 12/04/16 20:34 Clonidine 0.1 mg 0.1 mg Q6H PRN PO 12/05/16 15:30 12/05/16 15:58 (Rocephin Inj/NS Inj) 100 ml @ 200 mls/hr Q24H IV 12/05/16 20:00 12/06/16 20:41 (SEROquel) 50 mg BID@09,12 PO 12/07/16 09:00 12/07/16 09:00 A/P Assessment and Plan his is a 61-year-old female patient who was originally admitted to [facility] on 12/02/2016 after suspected isopropyl alcohol ingestion. Is not forthcoming with information. The only thing patient tells us is that, "I just want to rest." Patient unable to find any meaningful information. Information gathered from patient as well as prior computerized charting. Patient is currently an inpatient psychiatric center with been consulted for uncontrolled hypertension. Isolated elevated blood pressure, associated with tachycardia Resolved Possibly related to agitation, withdrawal or early infection Recommend taking vital signs every 4 hours Start clonidine 0.1 mg every 6 hours as needed for blood pressure greater than 160/90 CXR 12/02/2016 showed no acute disease UTI Urine cx (+)Ecoli susceptible to Cipro d/c IV Rocephin po Cipro BID Suicide attempt management per psychiatric team Hypokalemia Mild refusing po repletion IV repletion ordered am labs to monitor response DVT prophylaxis early ambulation physical therapies been consulted Plan of care discussed with nursing patient Patient medically cleared to be transferred to [facility] or be discharged per primary team. Recommend follow up with PCP within 7 days of discharge and continue course of antibiotic treatment for UTI x 5 days total. Case discussed with Dr. William Clayton,Flory MCCALLUM Dec 07, 2016 11:47
[2016-12-07] MEDS ORDERED: POTASSIUM CHLOR 20 MEQ PREMIX 100 ML IV ONE (12:00)
[2016-12-07] MEDS: CIPROFLOXACIN 250 MG TAB PO SCH ×2 (13:00→21:13)
[2016-12-07] MEDS ORDERED: PADIMATE (CHAPSTICK) 4.5 GM TUBE TOP ONE (13:00)
--- NOTE | 2016-12-07 14:58 | HHI.PYPN ---
Subjective Remarks Patient seen today for psychiatric reevaluation along with psychiatric team, geriatric social worker, therapist and nurse in charge. Previous to that reevaluated patient was widely discussed in treatment team. Today patient continues to be selectively mute, she can answer questions by nodding, she is alert, she has been eating, taking medication on and off. She hasn't been aggressive or agitated. At times she has been witnessed talking to herself and internally stimulated. Review of Systems ROS Limitations: Uncooperative Objective Alert: Yes [place]: Person Mood: Depressed, Oppositional Affect: Flat Memory Intact: Immediate Hallucinations: Other (would not answer) Delusions: No Delusion Type: Other (would not answer) Suicidal: Ideation (would not answer) Homicidal: Ideation (would not answer) Insight/Judgement poor Labs Date/Time Procedure Status Source Growth 12/05/16 15:33 Urine Culture - Final Complete Urine Catheterized Urine Escherichia Coli Vitals/IOs Vital Signs Date Time Temp Pulse Resp B/P Pulse Ox O2 Delivery O2 Flow Rate FiO2 12/07/16 06:11 98.0 78 20 103/64 94 12/05/16 05:00 21 Intake and Output 12/06/16 12/06/16 12/07/16 08:00 16:00 00:00 Intake Total 360 ml 480 ml 600 ml Balance 360 ml 480 ml 600 ml Assessment & Plan Problem List: (1) Unspecified psychosis Assessment & Plan: Patient seems to be acutely psychotic, internally stimulated , talking to herself, guarded and paranoid. Will continue close monitoring of mood and behavior, we'll continue encouraging the patient to take her medications. ICD Code: F29 Assessment & Plan Estimated LOS: days Justification for Cont. Inpt. Patient is is still acutely psychotic, selectively mute, internally preoccupied and paranoid, needs psychiatric hospitalization for stabilization. Sami Heller MD Dec 07, 2016 14:58
[2016-12-07 19:01] VITALS: BP 113/62; PULSE 82; RESP 17; TEMP 98.6; O2SAT 97
[2016-12-07] MEDS: REMOVE OLD NICOTINE PATCH T-DERMAL SCH (21:00)
[2016-12-08 02:51] VITALS: BP 124/69; PULSE 77; RESP 15; O2SAT 93
[2016-12-08 05:43] VITALS: BP 120/67; PULSE 81; RESP 16; TEMP 97.8; O2SAT 97
[2016-12-08 07:30] VITALS: BP 126/76; PULSE 91; RESP 18; TEMP 97.9; O2SAT 98
[2016-12-08 08:45] LABS: BICARBONATE 23.7 MEQ/L (21.0-32.0); POTASSIUM 3.6 MEQ/L (3.5-5.1)
[2016-12-08] MEDS: QUEtiapine FUMARATE 25 MG TAB PO SCH (09:00)
[2016-12-08] MEDS: NICOTINE 21 MG/24 HR PATCH T-DERMAL SCH (09:00)
[2016-12-08] MEDS: CIPROFLOXACIN 250 MG TAB PO SCH ×2 (09:00→21:23)
--- NOTE | 2016-12-08 10:21 | HHI.PYPN ---
Subjective Remarks Patient was seen today for psychiatric evaluation along with nurse in charge and psychotherapist social worker. Patient continues to be selectively mute, she is alert, awake, she is fulfilling her basic needs without no problems, at times she answers with nonverbal communication, she has been witness talking to herself and internally stimulated several time by nurses and unit staff, but she does not answer verbally any of our questions. No agitation, aggressive behavior has been reported. Patient is partially compliant with medications, she has been refusing psychotropics and antibiotics at times, but today she has taken all her medications. Review of Systems Other No somatic complaint Objective Alert: Yes [place]: Person Mood: Depressed, Oppositional Affect: Flat Memory Intact: Immediate Hallucinations: Other (would not answer) Delusions: No Delusion Type: Other (would not answer) Suicidal: Ideation (would not answer) Homicidal: Ideation (would not answer) Insight/Judgement poor Labs Test 12/08/16 07:36 Sodium Level 143 MEQ/L Potassium Level 3.6 MEQ/L Chloride Level 109 MEQ/L Carbon Dioxide Level 23.7 MEQ/L Anion Gap 10 MEQ/L Blood Urea Nitrogen 14 MG/DL Creatinine 0.91 MG/DL Estimat Glomerular Filtration 76 ML/MIN Rate Random Glucose 102 MG/DL Calcium Level 9.4 MG/DL Date/Time Procedure Status Source Growth 12/05/16 15:33 Urine Culture - Final Complete Urine Catheterized Urine Escherichia Coli Vitals/IOs Vital Signs Date Time Temp Pulse Resp B/P Pulse Ox O2 Delivery O2 Flow Rate FiO2 12/08/16 07:30 97.9 91 18 126/76 98 12/05/16 05:00 21 Intake and Output 12/07/16 12/07/16 12/08/16 08:00 16:00 00:00 Intake Total 100 ml 240 ml Balance 100 ml 240 ml Assessment & Plan Problem List: (1) Unspecified psychosis Assessment & Plan: Patient continues to be acutely psychotic, will increase Seroquel to 50 mg a.m. and 100 mg at bedtime, we will add an antidepressant Zoloft 25 mg for potential symptomatology of depression. ICD Code: F29 Assessment & Plan Estimated LOS: days Justification for Cont. Inpt. Patient continues to be internally stimulated, selectively mute, noncompliant with medications and needs to continue psychiatric hospitalization for stabilization Sami Heller MD Dec 08, 2016 10:21
[2016-12-08] MEDS: SERTRALINE HCL 50 MG TAB PO SCH (10:30)
--- NOTE | 2016-12-08 13:50 | HHI.PR ---
Subjective Remarks Follow up on patient with HTN and UTI. Patient seen today, nonverbal. Patient she has been selectively mute. Nods or shakes her head when questioned with yes or no answer. Denies pain and discomfort. Denies SOB/ dyspnea. Denies chest pain, palpitations, headaches, dizziness. Denies fevers, chills, n/v/d. Objective Vitals Vital Signs Date Time Temp Pulse Resp B/P Pulse Ox O2 Delivery O2 Flow Rate FiO2 12/08/16 07:30 97.9 91 18 126/76 98 12/08/16 05:43 97.8 81 16 120/67 97 12/08/16 02:51 77 15 124/69 93 12/07/16 19:01 98.6 82 17 113/62 97 I/O 12/07/16 12/07/16 12/07/16 12/08/16 12/08/16 12/08/16 07:00 15:00 23:00 07:00 15:00 23:00 Intake Total 100 ml 240 ml Balance 100 ml 240 ml Intake Oral 0 ml 240 ml IV Total 100 ml # Voids 2 2 2 Result Diagram: 12/06/16 0754 12/08/16 0736 Objective Remarks GENERAL: This is an obese, well-developed patient- nonverbal HEAD: Atraumatic. Normocephalic. No temporal or scalp tenderness. EYES: Extraocular motions intact. No scleral icterus. No injection or drainage. CARDIOVASCULAR: Regular rate and rhythm without murmurs, gallops, or rubs. RESPIRATORY: Clear to auscultation. Breath sounds equal bilaterally. No wheezes , rales, or rhonchi. GASTROINTESTINAL: Abdomen soft, non-tender, nondistended MUSCULOSKELETAL: Trace bilateral lower extremity edema. No calf tenderness. NEUROLOGICAL: Awake and alert. None Verbal, occasionally follow commands. Moves all 4 extremities spontaneously. 4 out of 5 muscle strength in all muscle groups. A/P Problem List: (1) Unspecified psychosis ICD Code: F29 Status: Acute (2) Altered mental status ICD Code: R41.82 Status: Acute (3) UTI (urinary tract infection) ICD Code: N39.0 Status: Acute Assessment and Plan his is a 61-year-old female patient who was originally admitted to [facility] on 12/02/2016 after suspected isopropyl alcohol ingestion. Is not forthcoming with information. The only thing patient tells us is that, "I just want to rest." Patient unable to find any meaningful information. Information gathered from patient as well as prior computerized charting. Patient is currently an inpatient psychiatric center with been consulted for uncontrolled hypertension. Isolated elevated blood pressure, associated with tachycardia Resolved Possibly related to agitation, withdrawal or early infection Recommend taking vital signs every 4 hours Start clonidine 0.1 mg every 6 hours as needed for blood pressure greater than 160/90 CXR 12/02/2016 showed no acute disease UTI Urine cx (+)Ecoli susceptible to Cipro d/c IV Rocephin po Cipro BID Suicide attempt management per psychiatric team Hypokalemia Mild refusing po repletion IV repletion ordered am labs to monitor response DVT prophylaxis early ambulation physical therapies been consulted Plan of care discussed with nursing, patient. Stable from Hospitalist standpoint. Written by Josef Young, acting as scribe for Dr. Thomas on 12/08/16 at 14: 10. Attending Statement The documentation accurately reflects the work performed [id number] by me on at 14:10. Josef Toscano Dec 08, 2016 13:50 Arnold Penaloza MD Dec 14, 2016 00:27
[2016-12-08 16:30] VITALS: BP 111/76; PULSE 82; RESP 18; TEMP 97.6; O2SAT 96
[2016-12-08 18:40] VITALS: BP 115/71; PULSE 107; RESP 17; TEMP 97.2; O2SAT 96
[2016-12-08] MEDS: REMOVE OLD NICOTINE PATCH T-DERMAL SCH (21:00)
[2016-12-08] MEDS: QUEtiapine FUMARATE 100 MG TAB PO SCH (21:23)
[2016-12-09 05:57] VITALS: BP 136/63; PULSE 77; RESP 16; TEMP 97.3; O2SAT 94
[2016-12-09] MEDS: QUEtiapine FUMARATE 25 MG TAB PO SCH (09:00)
[2016-12-09] MEDS: CIPROFLOXACIN 250 MG TAB PO SCH ×2 (09:00→21:00)
[2016-12-09] MEDS: SERTRALINE HCL 50 MG TAB PO SCH (09:00)
[2016-12-09] MEDS: NICOTINE 21 MG/24 HR PATCH T-DERMAL SCH (09:00)
--- NOTE | 2016-12-09 10:03 | HHI.PYPN ---
Subjective Remarks On psychiatric evaluation today patient continues to be selectively mute, even though this morning she has said thank you to nurse with breakfast was served and in the conversation she seems to be alert, interested, unable to answer most of our questions in an nonverbal manner, usually shaking her head. On the unit patient has been calm, cooperative, she has been eating okay, she has been going to the bathroom, but at times internally stimulated, talking to herself and a little bit disorganized. Patient has been taking her medications since yesterday. Review of Systems Other No somatic complaints Objective Alert: Yes [place]: Person Mood: Depressed, Oppositional Affect: Flat Memory Intact: Immediate Hallucinations: Other (would not answer) Delusions: No Delusion Type: Other (would not answer) Suicidal: Ideation (would not answer) Homicidal: Ideation (would not answer) Insight/Judgement poor Labs Date/Time Procedure Status Source Growth 12/05/16 15:33 Urine Culture - Final Complete Urine Catheterized Urine Escherichia Coli Vitals/IOs Vital Signs Date Time Temp Pulse Resp B/P Pulse Ox O2 Delivery O2 Flow Rate FiO2 12/09/16 05:57 97.3 77 16 136/63 94 Intake and Output 12/08/16 12/08/16 12/09/16 08:00 16:00 00:00 Intake Total 800 ml 600 ml Balance 800 ml 600 ml Assessment & Plan Problem List: (1) Unspecified psychosis ICD Code: F29 Assessment & Plan Estimated LOS: days Justification for Cont. Inpt. Patient continues to be selectively mute, internally stimulated, talking to herself, she seems to be unable to take care of herself independently in the community and needs psychiatric hospitalization for stabilization. Sami Heller MD Dec 09, 2016 10:03
[2016-12-09 14:28] VITALS: BP 99/65; PULSE 83; RESP 16; TEMP 98; O2SAT 88
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
[2016-12-09 19:28] VITALS: BP 110/74; PULSE 84; RESP 16; TEMP 98.5
[2016-12-09] MEDS: QUEtiapine FUMARATE 100 MG TAB PO SCH (20:24)
[2016-12-09] MEDS: REMOVE OLD NICOTINE PATCH T-DERMAL SCH (21:00)
[2016-12-10 06:00] VITALS: BP 113/69; PULSE 93; RESP 16; TEMP 97.8; O2SAT 98
[2016-12-10] MEDS: CIPROFLOXACIN 250 MG TAB PO SCH ×2 (09:00→21:47)
[2016-12-10] MEDS: NICOTINE 21 MG/24 HR PATCH T-DERMAL SCH (09:00)
[2016-12-10] MEDS: SERTRALINE HCL 50 MG TAB PO SCH (10:10)
[2016-12-10] MEDS: QUEtiapine FUMARATE 25 MG TAB PO SCH (10:10)
--- NOTE | 2016-12-10 12:32 | PD.PN.STU ---
Objective Vitals Vital Signs Date Time Temp Pulse Resp B/P Pulse Ox O2 Delivery O2 Flow Rate FiO2 12/10/16 06:00 97.8 93 16 113/69 98 12/09/16 19:28 98.5 84 16 110/74 12/09/16 14:28 98.0 83 16 99/65 88 I/O 12/09/16 12/09/16 12/09/16 12/10/16 12/10/16 12/10/16 07:00 15:00 23:00 07:00 15:00 23:00 Intake Total 120 ml 0 ml Balance 120 ml 0 ml Intake Oral 120 ml 0 ml # Voids 3 2 Result Diagram: 12/06/16 0754 12/08/16 0736 Objective Remarks Patient is non verbal, not following directions. Patient is making good eye contact. Resting comfortably in bed, appears in no acute distress. Patient was noted to have some non verbal communication with her sister in [place] [address] this morning. Ambulating independently. A/P Assessment and Plan Appears in no acute distress, resting comfortably. Will continue to follow. Family consulted to work with patient on determining placement s/p DC. Above progress note noted and agreed with. Patient seen by me independently with independent progress note written Anabel Doss Dec 10, 2016 12:31 Sav Suh MD Dec 14, 2016 14:00
--- NOTE | 2016-12-10 14:06 | HHI.PYPN ---
Subjective Remarks Patient transfer to 2500 unit from [address] E. last night. Patient now under my care. Patient seen in her room with nurse Helena medical student Agustina. Patient laying in bed alert though it appears selectively mute, is able to make eye contact when spoken to another fairly loud commanding type of voice. Though she shows very little response to questions. When asked to move her left arm she moved to slightly. I attempted to discern if that was waxing flexibility or posturing with her. There is a mild response to the posturing. Otherwise patient gave no response to questions you the by facial expression or movement of her head. Patient has been compliant with medications. I question whether that may be a catatonic flavor to this. We'll discontinue the when necessary Ativan and offer Ativan 0.5 mg 3 times a day scheduled. Review of Systems Except as stated in HPI: all other systems reviewed are Neg Objective Alert: Yes [place]: Person Mood: Depressed, Oppositional Affect: Flat Memory Intact: Immediate Hallucinations: Other (would not answer) Delusions: No Delusion Type: Other (would not answer) Suicidal: Ideation (would not answer) Homicidal: Ideation (would not answer) Insight/Judgement Very poor Labs Date/Time Procedure Status Source Growth 12/05/16 15:33 Urine Culture - Final Complete Urine Catheterized Urine Escherichia Coli Vitals/IOs Vital Signs Date Time Temp Pulse Resp B/P Pulse Ox O2 Delivery O2 Flow Rate FiO2 12/10/16 06:00 97.8 93 16 113/69 98 Intake and Output 12/09/16 12/09/16 12/10/16 08:00 16:00 00:00 Intake Total 120 ml Balance 120 ml Assessment & Plan Problem List: (1) Unspecified psychosis ICD Code: F29 Assessment & Plan Estimated LOS: days patient continues selectively mute at times appears to be responding to internal stimuli. I questionable may be a catatonic feature to this discontinue when necessary Ativan and offer 0.5 mg scheduled 3 times a day Justification for Cont. Inpt. At this time patient would significantly decompensate if placed in the lower level of care Discharge Planning To be determined Sav Suh MD Dec 10, 2016 14:06
[2016-12-10] MEDS: LORazepam 0.5 MG TAB PO SCH (18:00)
[2016-12-10 18:19] VITALS: BP 118/75; PULSE 90; RESP 16; TEMP 98.6; O2SAT 97
[2016-12-10] MEDS: REMOVE OLD NICOTINE PATCH T-DERMAL SCH (21:00)
[2016-12-10] MEDS: QUEtiapine FUMARATE 100 MG TAB PO SCH (21:47)
[2016-12-11 06:38] VITALS: BP 133/56; PULSE 79; RESP 16; TEMP 96.1; O2SAT 100
[2016-12-11] MEDS: NICOTINE 21 MG/24 HR PATCH T-DERMAL SCH (09:00)
[2016-12-11] MEDS: CIPROFLOXACIN 250 MG TAB PO SCH ×2 (09:46→21:57)
[2016-12-11] MEDS: SERTRALINE HCL 50 MG TAB PO SCH (09:46)
[2016-12-11] MEDS: QUEtiapine FUMARATE 25 MG TAB PO SCH (09:46)
[2016-12-11] MEDS: LORazepam 0.5 MG TAB PO SCH ×3 (09:46→17:31)
--- NOTE | 2016-12-11 12:04 | PD.PN.STU ---
Subjective Remarks Patient resting comfortably in chair watching TV, patient smiling and responding appropriately. Communicates upon initial interaction with "good morning" and "I feel better". Patient continues to nod her head when asked questions about her morning. This is much improved communication than yesterday. Patient received 1mg Ativan yesterday at 14:02 which could be the cause of this improvement. Patients sister on unit and visiting yesterday. . Objective Vitals Vital Signs Date Time Temp Pulse Resp B/P Pulse Ox O2 Delivery O2 Flow Rate FiO2 12/11/16 06:38 96.1 79 16 133/56 100 12/10/16 18:19 98.6 90 16 118/75 97 I/O 12/10/16 12/10/16 12/10/16 12/11/16 12/11/16 12/11/16 07:00 15:00 23:00 07:00 15:00 23:00 Intake Total 600 ml 480 ml 0 ml Balance 600 ml 480 ml 0 ml Intake Oral 600 ml 480 ml 0 ml # Voids 4 1 1 Result Diagram: 12/08/16 0736 A/P Assessment and Plan Problem List: (1) Unspecified psychosis ICD Code: F29 Assessment & Plan Estimated LOS: Selective mutism improved after Ativan 1mg yesterday, possible catatonic behavior. Now responding pleasantly with non verbal and some verbal communication. Will continue the Ativan as scheduled. Justification for Cont. Inpt. At this time patient would significantly decompensate if placed in the lower level of care Above progress note reviewed and agreed with. Patient seen independently by me with independent note written Appears in no acute distress, resting comfortably. Will continue to follow. Family consulted to work with patient on determining placement s/p DC. Discharge Planning To be determined Anabel Doss Dec 11, 2016 12:04 Sav Suh MD Dec 14, 2016 13:59
--- NOTE | 2016-12-11 13:25 | HHI.PYPN ---
Subjective Remarks Patient seen in day room with nurse Helena, chart review, patient sitting in [place]ion[place] chair, alert watching TV though making no eye contact with me unless I asked directly for it. She is remaining selectively mute with me though it appears she is somewhat more alert her affect appears slightly improved and she is somewhat more reactive to her environment. For now continue treatment Staff also states that they noticed patient having a long positive animated conversation with herself as if responding to internal stimuli. Will consider changing diagnosis of schizophrenia undifferentiated type Review of Systems Except as stated in HPI: all other systems reviewed are Neg Objective Alert: Yes [place]: Person Mood: Depressed, Oppositional Affect: Flat Memory Intact: Immediate Hallucinations: Other (would not answer) Delusions: No Delusion Type: Other (would not answer) Suicidal: Ideation (would not answer) Homicidal: Ideation (would not answer) Insight/Judgement Very poor Vitals/IOs Vital Signs Date Time Temp Pulse Resp B/P Pulse Ox O2 Delivery O2 Flow Rate FiO2 12/11/16 06:38 96.1 79 16 133/56 100 Intake and Output 12/10/16 12/10/16 12/11/16 08:00 16:00 00:00 Intake Total 0 ml 600 ml 480 ml Balance 0 ml 600 ml 480 ml Assessment & Plan Problem List: (1) Schizophrenia, 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 Justification for Cont. Inpt. At this time patient would significantly decompensate with placed in a lower level of care Discharge Planning To be determined Sav Suh MD Dec 11, 2016 13:25
[2016-12-11 20:22] VITALS: BP 125/60; PULSE 75; RESP 16; TEMP 96.4
[2016-12-11] MEDS: REMOVE OLD NICOTINE PATCH T-DERMAL SCH (21:00)
[2016-12-11] MEDS: QUEtiapine FUMARATE 100 MG TAB PO SCH (21:57)
[2016-12-12 06:30] VITALS: BP 127/67; PULSE 73; RESP 18; TEMP 98; O2SAT 98
[2016-12-12] MEDS: NICOTINE 21 MG/24 HR PATCH T-DERMAL SCH (09:00)
[2016-12-12] MEDS: SERTRALINE HCL 50 MG TAB PO SCH (09:22)
[2016-12-12] MEDS: LORazepam 0.5 MG TAB PO SCH ×3 (09:22→17:48)
[2016-12-12] MEDS: CIPROFLOXACIN 250 MG TAB PO SCH ×2 (09:22→21:58)
[2016-12-12] MEDS: QUEtiapine FUMARATE 25 MG TAB PO SCH (09:23)
--- NOTE | 2016-12-12 19:44 | HHI.PYPN ---
Subjective Remarks PT seen and discussed with staff. She remains selectively mute at times. She continues to respond to internal stimuli. She is isolative to her room but has started coming out into milieu for meals. 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 Estimated LOS: days Justification for Cont. Inpt. impairments in reality construction and self care Saray Rose MD Dec 12, 2016 19:44
[2016-12-12] MEDS: REMOVE OLD NICOTINE PATCH T-DERMAL SCH (21:00)
[2016-12-12] MEDS: QUEtiapine FUMARATE 100 MG TAB PO SCH (21:58)
[2016-12-13 05:42] VITALS: BP 109/64; PULSE 72; RESP 16; TEMP 98; O2SAT 98
[2016-12-13] MEDS: NICOTINE 21 MG/24 HR PATCH T-DERMAL SCH (09:00)
[2016-12-13] MEDS: SERTRALINE HCL 50 MG TAB PO SCH (09:54)
[2016-12-13] MEDS: LORazepam 0.5 MG TAB PO SCH ×3 (09:54→18:00)
[2016-12-13] MEDS: CIPROFLOXACIN 250 MG TAB PO SCH ×2 (09:54→21:58)
[2016-12-13] MEDS: QUEtiapine FUMARATE 25 MG TAB PO SCH (09:54)
--- NOTE | 2016-12-13 12:53 | HHI.PYPN ---
Subjective Remarks Pt seen and discussed with staff. Pt has been compliant with medication. She has been coming out more to milieu. Still selectively mute but did whisper to MD with prompting. No medication side effects. Remains disorganized in behaviors and thought process. No SI/HI. 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 Estimated LOS: days Justification for Cont. Inpt. impairments in self care and reality construction. Saray Rose MD Dec 13, 2016 12:52
[2016-12-13 18:00] VITALS: BP 128/60; PULSE 97; RESP 17; TEMP 96.9; O2SAT 98
[2016-12-13] MEDS: REMOVE OLD NICOTINE PATCH T-DERMAL SCH (21:00)
[2016-12-13] MEDS: QUEtiapine FUMARATE 100 MG TAB PO SCH (21:58)
[2016-12-14 05:00] VITALS: BP 91/61; PULSE 72; RESP 18; TEMP 97.5; O2SAT 98
[2016-12-14] MEDS: NICOTINE 21 MG/24 HR PATCH T-DERMAL SCH (09:00)
[2016-12-14] MEDS: CIPROFLOXACIN 250 MG TAB PO SCH (10:03)
[2016-12-14] MEDS: LORazepam 0.5 MG TAB PO SCH ×3 (10:03→17:09)
[2016-12-14] MEDS: SERTRALINE HCL 50 MG TAB PO SCH (10:03)
[2016-12-14] MEDS: QUEtiapine FUMARATE 25 MG TAB PO SCH (10:03)
[2016-12-14 18:00] VITALS: BP 156/81; PULSE 86; RESP 18; TEMP 98.1; O2SAT 100
[2016-12-14] MEDS: REMOVE OLD NICOTINE PATCH T-DERMAL SCH (21:00)
[2016-12-14] MEDS: QUEtiapine FUMARATE 100 MG TAB PO SCH (21:49)
[2016-12-15 06:00] VITALS: BP 111/58; PULSE 86; RESP 18; TEMP 96.6; O2SAT 98
[2016-12-15] MEDS: LORazepam 0.5 MG TAB PO SCH ×3 (09:53→18:24)
[2016-12-15] MEDS: SERTRALINE HCL 50 MG TAB PO SCH (09:53)
[2016-12-15] MEDS: NICOTINE 21 MG/24 HR PATCH T-DERMAL SCH (09:53)
[2016-12-15] MEDS: QUEtiapine FUMARATE 25 MG TAB PO SCH (09:53)
--- NOTE | 2016-12-15 15:37 | HHI.PYPN ---
Subjective Remarks Patient seen in her room with nurse Katie and medical student Agustina, chart review, it appears patient is becoming more verbal and animated when talking to Katie then with the "white coat" with me patient reluctantly answered very brief monosyllabic responses vague about voices, denying any pain. Compliant medications Review of Systems Except as stated in HPI: all other systems reviewed are Neg Objective Alert: Yes [place]: Person Mood: Calm, Depressed Affect: Restricted, Flat Memory Intact: Immediate Hallucinations: Auditory Delusions: No Delusion Type: Other (would not answer) Suicidal: Ideation (would not answer) Homicidal: Ideation (would not answer) Insight/Judgement Poor Vitals/IOs Vital Signs Date Time Temp Pulse Resp B/P Pulse Ox O2 Delivery O2 Flow Rate FiO2 12/15/16 06:00 96.6 86 18 111/58 98 Intake and Output 12/14/16 12/14/16 12/15/16 08:00 16:00 00:00 Intake Total 1320 ml Balance 1320 ml Assessment & Plan Problem List: (1) Schizophrenia, 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 Inpt. At this time patient would significantly decompensate with placed in the lower level of care Discharge Planning To be determined Sav Suh MD Dec 15, 2016 15:37
[2016-12-15 18:15] VITALS: BP 96/61; PULSE 94; RESP 17; TEMP 98.1
[2016-12-15] MEDS: REMOVE OLD NICOTINE PATCH T-DERMAL SCH (21:00)
[2016-12-15] MEDS: QUEtiapine FUMARATE 100 MG TAB PO SCH (21:20)
[2016-12-16 06:14] VITALS: BP 118/58; PULSE 78; RESP 20; TEMP 98.3; O2SAT 97
[2016-12-16 06:19] VITALS: BP 118/58; PULSE 78; RESP 20; TEMP 98.3; O2SAT 97
[2016-12-16] MEDS: SERTRALINE HCL 50 MG TAB PO SCH (10:27)
[2016-12-16] MEDS: NICOTINE 21 MG/24 HR PATCH T-DERMAL SCH (10:27)
[2016-12-16] MEDS: QUEtiapine FUMARATE 25 MG TAB PO SCH (10:27)
[2016-12-16] MEDS: LORazepam 0.5 MG TAB PO SCH ×3 (10:27→18:08)
--- NOTE | 2016-12-16 12:48 | HHI.PYPN ---
Subjective Remarks Patient seen in day room with nurse Guadalupe, patient continues selectively mute though more reactive to me, improved eye contact though she still appears to be responding to internal stimuli. Patient now mouthing responses to me. Compliant medications. Staff states patient has very long cracking to nails that are Deanne into her toes. Above podiatry consult Review of Systems Except as stated in HPI: all other systems reviewed are Neg Objective Alert: Yes [place]: Person Mood: Calm, Depressed (depression lifting somewhat) Affect: Restricted (somewhat more reactive) Memory Intact: Immediate Hallucinations: Auditory Delusions: No Delusion Type: Other (would not answer) Suicidal: Ideation (would not answer) Homicidal: Ideation (would not answer) Insight/Judgement Poor Vitals/IOs Vital Signs Date Time Temp Pulse Resp B/P Pulse Ox O2 Delivery O2 Flow Rate FiO2 12/16/16 06:19 98.3 78 20 118/58 97 Intake and Output 12/15/16 12/15/16 12/16/16 08:00 16:00 00:00 Intake Total 1440 ml Balance 1440 ml Assessment & Plan Problem List: (1) Schizophrenia, 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 Compliant medication Justification for Cont. Inpt. At this time patient would she will decompensate the place to the lower level of care Discharge Planning To be determined Sav Suh MD Dec 16, 2016 12:48
[2016-12-16] MEDS: QUEtiapine FUMARATE 100 MG TAB PO SCH (21:00)
[2016-12-16] MEDS: REMOVE OLD NICOTINE PATCH T-DERMAL SCH (21:00)
[2016-12-17 06:10] VITALS: BP 114/68; PULSE 80; RESP 17; TEMP 98.3; O2SAT 97
[2016-12-17] MEDS: NICOTINE 21 MG/24 HR PATCH T-DERMAL SCH (09:00)
[2016-12-17] MEDS: REMOVE OLD NICOTINE PATCH T-DERMAL SCH (10:09)
[2016-12-17] MEDS: SERTRALINE HCL 50 MG TAB PO SCH (10:10)
[2016-12-17] MEDS: QUEtiapine FUMARATE 25 MG TAB PO SCH (10:10)
[2016-12-17] MEDS: LORazepam 0.5 MG TAB PO SCH ×3 (10:10→17:12)
--- NOTE | 2016-12-17 13:18 | PD.PN.STU ---
Subjective Remarks Patient seen laying in bed this afternoon. Chart reviewed. Refused Seroquel last night and this morning due to her feeling "nauseated". She had bowel movement this morning, denies vomiting, denies constipation. No other complaints. Objective Vitals Vital Signs Date Time Temp Pulse Resp B/P Pulse Ox O2 Delivery O2 Flow Rate FiO2 12/17/16 06:10 98.3 80 17 114/68 97 I/O 12/16/16 12/16/16 12/16/16 12/17/16 12/17/16 12/17/16 07:00 15:00 23:00 07:00 15:00 23:00 Intake Total 120 ml 0 ml 120 ml Balance 120 ml 0 ml 120 ml Intake Oral 120 ml 0 ml 120 ml # Voids 2 1 2 # Bowel Movements 1 Objective Remarks Appears comfortable, no acute distress. Agrees to take Zofran to help with nausea, and will take missed dosages of Seroquel. Communication has improved since previous days, speaking clearly. A/P Assessment and Plan Will treat nausea with Zolfot IV, patient agreeable to take missed doses of Seroquel when feels better. Patient will decompensate if placed in lower level of care. Will continue to monitor. Discharge Planning To be determined. Anabel Doss M3 Dec 17, 2016 13:18
--- NOTE | 2016-12-17 13:29 | HHI.PYPN ---
Subjective Remarks Patient seen in her room with nurse Eric and medical student Agustina, chart reviewed. Patient in bed with covers to her chin our patient much more verbal and responsive with me today responding in full sentences and multiple sentences with fair eye contact. Complains of some nausea, though denies any significant abdominal pain, denies any lower abdominal pain states had a bowel movement today, also denies any UTI symptoms. Will offer patient Zofran 4 mg for this encouraged her to be compliant with her Seroquel Review of Systems Except as stated in HPI: all other systems reviewed are Neg Gastrointestinal: COMPLAINS OF: Nausea Objective Alert: Yes [place]: Person Mood: Calm, Depressed (depression lifting somewhat) Affect: Restricted (somewhat more reactive) Memory Intact: Immediate Hallucinations: Auditory (states somewhat diminished) Delusions: No Delusion Type: Other (would not answer) Suicidal: Ideation (would not answer) Homicidal: Ideation (would not answer) Insight/Judgement Poor Vitals/IOs Vital Signs Date Time Temp Pulse Resp B/P Pulse Ox O2 Delivery O2 Flow Rate FiO2 12/17/16 06:10 98.3 80 17 114/68 97 Intake and Output 12/16/16 12/16/16 12/17/16 08:00 16:00 00:00 Intake Total 120 ml 0 ml Balance 120 ml 0 ml Assessment & Plan Problem List: (1) Schizophrenia, 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 Patient show noncompliance with medication perhaps secondary to the nausea is no willing to take medication for now continue treatment Justification for Cont. Inpt. At this time patient will decompensate if placed in a lower level of care Discharge Planning To be determined Sav uSh MD Dec 17, 2016 13:29
[2016-12-17] MEDS ORDERED: ONDANSETRON ODT 4 MG TAB PO PRN (13:30)
[2016-12-17 18:40] VITALS: BP 133/85; PULSE 89; RESP 16; TEMP 98.5; O2SAT 99
[2016-12-17] MEDS: QUEtiapine FUMARATE 100 MG TAB PO SCH (21:20)
[2016-12-18 06:38] VITALS: BP 136/79; PULSE 77; RESP 18; TEMP 97.8; O2SAT 99
[2016-12-18] MEDS: QUEtiapine FUMARATE 25 MG TAB PO SCH (08:37)
[2016-12-18] MEDS: SERTRALINE HCL 50 MG TAB PO SCH (08:37)
[2016-12-18] MEDS: NICOTINE 21 MG/24 HR PATCH T-DERMAL SCH (08:37)
[2016-12-18] MEDS: LORazepam 0.5 MG TAB PO SCH ×3 (08:37→17:26)
--- NOTE | 2016-12-18 12:00 | PD.PN.STU ---
Subjective Remarks Patient sitting comfortably in day room, indicated that she is mildly nauseated. Patient has eaten cereal for breakfast this morning, denies vomiting , no other complaints. Objective Vitals Vital Signs Date Time Temp Pulse Resp B/P Pulse Ox O2 Delivery O2 Flow Rate FiO2 12/18/16 06:38 97.8 77 18 136/79 99 12/17/16 18:40 98.5 89 16 133/85 99 I/O 12/17/16 12/17/16 12/17/16 12/18/16 12/18/16 12/18/16 07:00 15:00 23:00 07:00 15:00 23:00 Intake Total 120 ml 0 ml 240 ml 360 ml Balance 120 ml 0 ml 240 ml 360 ml Intake Oral 120 ml 0 ml 240 ml 360 ml # Voids 2 1 2 # Bowel Movements 1 Objective Remarks Patient less verbal today than yesterday, indicated that she is still nauseas however nurse Eric reported patient refused to take Zofran and dose of Seroquel this morning. Affect: Pleasant Insight/Judgment: Poor Behavior: pleasant with episodes of responding to internal stimuli. A/P Assessment and Plan patient still nauseated however refusing to take Zofran per nurse Reyes. Also refusing doses of Seroquel. Patient will decompensate if placed in lower level of care. Will continue to monitor. Discharge Planning To be determined Anabel Doss Dec 18, 2016 12:00
--- NOTE | 2016-12-18 12:19 | HHI.PYPN ---
Subjective Remarks Patient seen in day room with nurse Eric and medical student Agustina, patient calm pleasant with me not quite as verbal as yesterday, states Zofran did help the abdominal pain yesterday but is back just as bad today. Will have hospitalist reconsult to assessments compliant medications Review of Systems Constitutional: DENIES: Diaphoretic episodes, Fatigue, Fever, Weight gain, Weight loss, Chills, Dizziness, Change in appetite, Night Sweats Endocrine: DENIES: Abnorml menstrual pattern, Heat/cold intolerance, Polydipsia , Polyuria, Polyphagia Eyes: DENIES: Blurred vision, Diplopia, Eye inflammation, Eye pain, Vision loss , Photosensitivity, Double Vision Ears, nose, mouth, throat: DENIES: Tinnitus, Hearing loss, Vertigo, Nasal discharge, Oral lesions, Throat pain, Hoarseness, Ear Pain, Running Nose, Epistaxis, Sinus Pain, Toothache, Odynophagia Respiratory: DENIES: Apneas, Cough, Snoring, Wheezing, Hemoptysis, Sputum production, Shortness of breath Cardiovascular: DENIES: Chest pain, Palpitations, Syncope, Dyspnea on Exertion , PND, Lower Extremity Edema, Orthopnea, Claudication Gastrointestinal: COMPLAINS OF: Abdominal pain, DENIES: Black stools, Bloody stools, Constipation, Diarrhea, Nausea, Vomiting, Difficulty Swallowing, Anorexia Genitourinary: DENIES: Abnormal vaginal bleeding, Dysmenorrhea, Dyspareunia, Sexual dysfunction, Urinary frequency, Urinary incontinence, Urgency, Hematuria , Dysuria, Nocturia, Vaginal discharge Musculoskeletal: DENIES: Joint pain, Muscle aches, Stiffness, Joint Swelling, Back pain, Neck pain Integumentary: DENIES: Abnormal pigmentation, Pruritus, Rash, Nail changes, Breast masses, Breast skin changes, Nipple discharge Hematologic/lymphatic: DENIES: Bruising, Lymphadenopathy Immunologic/allergic: DENIES: Eczema, Urticaria Neurologic: DENIES: Abnormal gait, Headache, Localized weakness, Paresthesias, Seizures, Speech Problems, Tremor, Poor Balance Psychiatric: DENIES: Anxiety, Confusion, Mood changes, Depression, Hallucinations, Agitation, Suicidal Ideation, Homicidal Ideation, Delusions Objective Alert: Yes [place]: Person Mood: Calm, Depressed (depression lifting somewhat) Affect: Restricted (somewhat more reactive) Memory Intact: Immediate Hallucinations: Auditory (states somewhat diminished) Delusions: No Delusion Type: Other (would not answer) Suicidal: Ideation (would not answer) Homicidal: Ideation (would not answer) Insight/Judgement Poor Vitals/IOs Vital Signs Date Time Temp Pulse Resp B/P Pulse Ox O2 Delivery O2 Flow Rate FiO2 12/18/16 06:38 97.8 77 18 136/79 99 Intake and Output 12/17/16 12/17/16 12/18/16 08:00 16:00 00:00 Intake Total 120 ml 0 ml Balance 120 ml 0 ml Assessment & Plan Problem List: (1) Schizophrenia, 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 Inpt. At this time patient will decompensate if placed in a lower level of care Discharge Planning To be determined Sav Suh MD Dec 18, 2016 12:19
[2016-12-18] MEDS ORDERED: ONDANSETRON ODT 4 MG TAB PO PRN (13:15)
[2016-12-18] MEDS: PANTOPRAZOLE SOD 40 MG DELAYED RELEASE TAB PO SCH (13:15)
--- NOTE | 2016-12-18 16:36 | HHI.PR ---
Subjective Remarks Reconsulted for abdominal pain. Patient evaluated inpatient psychiatric center. Patient reports she has some GI upset after taking medications. Review of chart patient has not recently taken any medications. Patient reports stomach upset vague nausea but no vomiting. Patient is vague in her explanation of symptoms and is unable to give further details. Patient denies specific abdominal pain or cramping. Last bowel movement yesterday 12/17/2016. Patient reports positive flatus. Patient also denies shortness of breath or chest pain. Objective Vitals Vital Signs Date Time Temp Pulse Resp B/P Pulse Ox O2 Delivery O2 Flow Rate FiO2 12/18/16 06:38 97.8 77 18 136/79 99 12/17/16 18:40 98.5 89 16 133/85 99 I/O 12/17/16 12/17/16 12/17/16 12/18/16 12/18/16 12/18/16 07:00 15:00 23:00 07:00 15:00 23:00 Intake Total 120 ml 0 ml 240 ml 600 ml Balance 120 ml 0 ml 240 ml 600 ml Intake Oral 120 ml 0 ml 240 ml 600 ml # Voids 2 1 2 2 # Bowel Movements 1 0 Objective Remarks GENERAL: This is a well-nourished, well-developed patient- nonverbal HEAD: Atraumatic. Normocephalic. No temporal or scalp tenderness. EYES: Extraocular motions intact. No scleral icterus. No injection or drainage. CARDIOVASCULAR: Regular rate and rhythm without murmurs, gallops, or rubs. RESPIRATORY: Clear to auscultation. Breath sounds equal bilaterally. No wheezes , rales, or rhonchi. GASTROINTESTINAL: Abdomen soft, non-tender, nondistended, normal active bowel sounds 4 MUSCULOSKELETAL: Trace bilateral lower extremity edema. No calf tenderness. Negative Homans sign bilaterally. NEUROLOGICAL:resting, non verbal, does not follow commands. Moves all 4 extremities spontaneously does not follow commands. 4 out of 5 muscle strength in all muscle groups. A/P Problem List: (1) Unspecified psychosis ICD Code: F29 Status: Acute (2) Altered mental status ICD Code: R41.82 Status: Acute Assessment and Plan This is a 61-year-old female patient who was originally admitted to [facility] on 12/02/2016 after suspected isopropyl alcohol ingestion. Is not forthcoming with information. The only thing patient tells us is that, "I just want to rest." Patient unable to find any meaningful information. Information gathered from patient as well as prior computerized charting. Patient is currently an inpatient psychiatric center with been consulted for uncontrolled hypertension. Suicide attempt management per psychiatric team GI upset/nausea Zofran as needed Start Protonix daily CBC, CMP, lipase, urinalysis C&S if indicated ordered and pending DVT prophylaxis early ambulation physical therapies been consulted Plan of care discussed with nursing patient Written by Sherry Crawford, acting as scribe for Dr. Thomas on 12/18/16 at 16:36. Attending Statement All or portions of this note were transcribed by scribe Sherry Crawford. I, Dr. Arnold Heaton personally performed the history, physical exam, and medical decision making; and confirmed the accuracy of the information in the transcribed note. Authenticated by Dr. Arnold Heaton on .12/18/16 at 15:55 Sherry Crawford Dec 18, 2016 16:36 Arnold Penaloza MD Dec 29, 2016 12:23
[2016-12-18 18:09] VITALS: BP 163/84; PULSE 90; RESP 18; TEMP 97.4; O2SAT 95
[2016-12-18] MEDS: REMOVE OLD NICOTINE PATCH T-DERMAL SCH (21:00)
[2016-12-18] MEDS: QUEtiapine FUMARATE 100 MG TAB PO SCH (21:34)
[2016-12-19 06:00] VITALS: BP 100/57; PULSE 86; RESP 16; TEMP 97.8; O2SAT 97
[2016-12-19 07:18] LABS: AUTOMATED NEUTROPHIL # 3.5 TH/MM3 (1.8-7.7); BASOPHIL % 0.7 % (0.0-2.0); EOSINOPHIL # 0.2 TH/MM3 (0-0.4); EOSINOPHIL % 2.8 % (0.0-4.0); HEMO FLAGS DIFF FINAL; LYMPH % 33.3 % (9.0-44.0); LYMPHOCYTE # 2.2 TH/MM3 (1.0-4.8); MEAN CELL VOLUME 86.6 FL (80.0-100.0); MEAN CORPUSCULAR HEMOGLOBIN 28.2 PG (27.0-34.0); MEAN CORPUSCULAR HGB CONC 32.5 % (32.0-36.0); MONO % 8.6 % (0.0-8.0); NEUT % 54.6 % (16.0-70.0); PLATELET COUNT 184 TH/MM3 (150-450); RED BLOOD COUNT 4.74 MIL/MM3 (4.00-5.30); RED CELL DISTRIBUTION WIDTH 15.5 % (11.6-17.2); WHITE BLOOD COUNT 6.5 TH/MM3 (4.0-11.0)
[2016-12-19 07:39] LABS: ALKALINE PHOSPHATASE 71 U/L (45-117); ALT (GPT) 20 U/L (10-53); ANION GAP 9 MEQ/L (5-15); AST (GOT) 16 U/L (15-37); BICARBONATE 23.6 MEQ/L (21.0-32.0); BLOOD UREA NITROGEN 18 MG/DL (7-18); CHLORIDE 109 MEQ/L (98-107); GLOMERULAR FILTRATION RATE 57 ML/MIN (>89); POTASSIUM 3.9 MEQ/L (3.5-5.1); SODIUM (NA) 142 MEQ/L (136-145); TOTAL BILIRUBIN ADULT 0.8 MG/DL (0.2-1.0)
[2016-12-19] MEDS: PANTOPRAZOLE SOD 40 MG DELAYED RELEASE TAB PO SCH (08:58)
[2016-12-19] MEDS: SERTRALINE HCL 50 MG TAB PO SCH (08:58)
[2016-12-19] MEDS: QUEtiapine FUMARATE 25 MG TAB PO SCH (08:58)
[2016-12-19] MEDS: LORazepam 0.5 MG TAB PO SCH ×3 (08:58→17:54)
[2016-12-19] MEDS: NICOTINE 21 MG/24 HR PATCH T-DERMAL SCH (09:00)
[2016-12-19 10:10] VITALS: BP 109/61; PULSE 76
--- NOTE | 2016-12-19 11:41 | HHI.PYPN ---
Subjective Remarks Patient was seen and case discussed with nursing. Patient remains volitionally oppositional. She refuses to speak. When asked if she purposely is not speaking she nods her head up and down. Unclear why she is guarded. Interviewed in bed. She is compliant with his medications, eating well Objective Alert: Yes [place]: Person Mood: Calm, Depressed (depression lifting somewhat), Oppositional Affect: Restricted (somewhat more reactive), Flat Memory Intact: Immediate Hallucinations: Auditory (would not answer) Delusions: No Delusion Type: Other (would not answer) Suicidal: Ideation (would not answer) Homicidal: Ideation (would not answer) Insight/Judgement Poor Labs Test 12/19/16 06:59 White Blood Count 6.5 TH/MM3 Red Blood Count 4.74 MIL/MM3 Hemoglobin 13.3 GM/DL Hematocrit 41.0 % Mean Corpuscular Volume 86.6 FL Mean Corpuscular Hemoglobin 28.2 PG Mean Corpuscular Hemoglobin 32.5 % Concent Red Cell Distribution Width 15.5 % Platelet Count 184 TH/MM3 Mean Platelet Volume 10.4 FL Neutrophils (%) (Auto) 54.6 % Lymphocytes (%) (Auto) 33.3 % Monocytes (%) (Auto) 8.6 % Eosinophils (%) (Auto) 2.8 % Basophils (%) (Auto) 0.7 % Neutrophils # (Auto) 3.5 TH/MM3 Lymphocytes # (Auto) 2.2 TH/MM3 Monocytes # (Auto) 0.6 TH/MM3 Eosinophils # (Auto) 0.2 TH/MM3 Basophils # (Auto) 0.0 TH/MM3 CBC Comment DIFF FINAL Differential Comment Sodium Level 142 MEQ/L Potassium Level 3.9 MEQ/L Chloride Level 109 MEQ/L Carbon Dioxide Level 23.6 MEQ/L Anion Gap 9 MEQ/L Blood Urea Nitrogen 18 MG/DL Creatinine 1.17 MG/DL Estimat Glomerular Filtration 57 ML/MIN Rate Random Glucose 100 MG/DL Calcium Level 9.2 MG/DL Total Bilirubin 0.8 MG/DL Aspartate Amino Transf 16 U/L (AST/SGOT) Alanine Aminotransferase 20 U/L (ALT/SGPT) Alkaline Phosphatase 71 U/L Total Protein 7.8 GM/DL Albumin 3.6 GM/DL Lipase 156 U/L Vitals/IOs Vital Signs Date Time Temp Pulse Resp B/P Pulse Ox O2 Delivery O2 Flow Rate FiO2 12/19/16 10:10 76 109/61 12/19/16 06:00 97.8 16 97 Intake and Output 12/18/16 12/18/16 12/19/16 08:00 16:00 00:00 Intake Total 600 ml 240 ml 720 ml Balance 600 ml 240 ml 720 ml Assessment & Plan Problem List: (1) Schizophrenia, 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 Inpt. Patient will decompensate in a less restrictive setting Fran Cabral DO Dec 19, 2016 11:41
[2016-12-19 18:29] VITALS: BP 116/65; PULSE 81; RESP 18; TEMP 98.5; O2SAT 100
[2016-12-19 20:13] VITALS: BP 116/65; PULSE 81; TEMP 98.3
[2016-12-19] MEDS: REMOVE OLD NICOTINE PATCH T-DERMAL SCH (21:00)
[2016-12-19] MEDS: QUEtiapine FUMARATE 100 MG TAB PO SCH (21:08)
[2016-12-20 06:03] VITALS: BP 126/89; PULSE 76; RESP 18; TEMP 96.2; O2SAT 99
[2016-12-20] MEDS: SERTRALINE HCL 50 MG TAB PO SCH (09:00)
[2016-12-20] MEDS: NICOTINE 21 MG/24 HR PATCH T-DERMAL SCH (09:00)
[2016-12-20] MEDS: LORazepam 0.5 MG TAB PO SCH ×3 (09:00→18:00)
[2016-12-20] MEDS: PANTOPRAZOLE SOD 40 MG DELAYED RELEASE TAB PO SCH (09:00)
[2016-12-20] MEDS: QUEtiapine FUMARATE 25 MG TAB PO SCH (09:00)
--- NOTE | 2016-12-20 11:56 | HHI.PYPN ---
Subjective Remarks Patient was seen and case discussed with nursing. Patient continues to refuse the interview. She is purposely nonverbal. Shaking her shoulders and laying in bed area per nursing she is refusing her a.m. medication. Not cooperative with interview Objective Alert: Yes [place]: Person Mood: Calm, Oppositional Affect: Flat Memory Intact: Immediate Hallucinations: Auditory (would not answer) Delusions: No Delusion Type: Other (would not answer) Suicidal: Ideation (would not answer) Homicidal: Ideation (would not answer) Insight/Judgement Poor Vitals/IOs Vital Signs Date Time Temp Pulse Resp B/P Pulse Ox O2 Delivery O2 Flow Rate FiO2 12/20/16 06:03 96.2 76 18 126/89 99 Intake and Output 12/19/16 12/19/16 12/20/16 08:00 16:00 00:00 Intake Total 240 ml 360 ml 720 ml Balance 240 ml 360 ml 720 ml Assessment & Plan Problem List: (1) Schizophrenia, 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 Inpt. Patient will decompensate in a less restrictive setting Fran Cabral DO Dec 20, 2016 11:56
[2016-12-20 20:27] VITALS: BP 136/80; PULSE 88; RESP 18; TEMP 97.8; O2SAT 97
[2016-12-20] MEDS: QUEtiapine FUMARATE 100 MG TAB PO SCH (20:51)
[2016-12-20] MEDS: REMOVE OLD NICOTINE PATCH T-DERMAL SCH (20:52)
[2016-12-21 05:08] VITALS: BP 112/81; PULSE 101; RESP 18; O2SAT 99
[2016-12-21 07:56] LABS: BICARBONATE 23.1 MEQ/L (21.0-32.0); POTASSIUM 3.9 MEQ/L (3.5-5.1)
[2016-12-21] MEDS: NICOTINE 21 MG/24 HR PATCH T-DERMAL SCH (09:00)
[2016-12-21] MEDS: LORazepam 0.5 MG TAB PO SCH ×3 (09:10→17:44)
[2016-12-21] MEDS: PANTOPRAZOLE SOD 40 MG DELAYED RELEASE TAB PO SCH (09:10)
[2016-12-21] MEDS: SERTRALINE HCL 50 MG TAB PO SCH (09:10)
[2016-12-21] MEDS: QUEtiapine FUMARATE 25 MG TAB PO SCH (09:10)
--- NOTE | 2016-12-21 13:43 | HHI.PR ---
Subjective Remarks Follow up: abdominal pain. Patient evaluated inpatient psychiatric center. Patient denies abdominal pain or cramping. Last bowel movement yesterday 2016. Patient reports positive flatus. Patient also denies shortness of breath or chest pain. Objective Vitals Vital Signs Date Time Temp Pulse Resp B/P Pulse Ox O2 Delivery O2 Flow Rate FiO2 12/21/16 05:08 101 18 112/81 99 12/20/16 20:27 97.8 88 18 136/80 97 I/O 12/20/16 12/20/16 12/20/16 12/21/16 12/21/16 12/21/16 07:00 15:00 23:00 07:00 15:00 23:00 Intake Total 0 ml 1440 ml 0 ml 1180 ml Balance 0 ml 1440 ml 0 ml 1180 ml Intake Oral 0 ml 1440 ml 0 ml 1180 ml # Voids 2 5 2 # Bowel Movements 0 0 Result Diagram: 12/19/16 0659 12/21/16 0647 Objective Remarks GENERAL: This is a well-nourished, well-developed patient- nonverbal HEAD: Atraumatic. Normocephalic. No temporal or scalp tenderness. EYES: Extraocular motions intact. No scleral icterus. No injection or drainage. CARDIOVASCULAR: Regular rate and rhythm without murmurs, gallops, or rubs. RESPIRATORY: Clear to auscultation. Breath sounds equal bilaterally. No wheezes , rales, or rhonchi. GASTROINTESTINAL: Abdomen soft, non-tender, nondistended, normal active bowel sounds 4 MUSCULOSKELETAL: Trace bilateral lower extremity edema. No calf tenderness. Negative Homans sign bilaterally. NEUROLOGICAL:resting, non verbal, does not follow commands. Moves all 4 extremities spontaneously does not follow commands. 4 out of 5 muscle strength in all muscle groups. A/P Problem List: (1) Unspecified psychosis ICD Code: F29 Status: Acute (2) Altered mental status ICD Code: R41.82 Status: Acute Assessment and Plan This is a 61-year-old female patient who was originally admitted to [facility] on 12/02/2016 after suspected isopropyl alcohol ingestion. Is not forthcoming with information. The only thing patient tells us is that, "I just want to rest." Patient unable to find any meaningful information. Information gathered from patient as well as prior computerized charting. Patient is currently an inpatient psychiatric center with been consulted for uncontrolled hypertension. Suicide attempt management per psychiatric team GI upset/nausea- resolved Zofran as needed continue Protonix daily urinalysis C&S if indicated ordered and pending DVT prophylaxis early ambulation physical therapies been consulted Plan of care discussed with nursing patient Patient medically stable will sign off. If patient's condition changes or further assistance is need please reconsult. Written by Sherry Crawford, acting as scribe for Dr. Thomas on 12/21/16 at 13:43. Attending Statement All or portions of this note were transcribed by scribe Sherry Crawford. I, Dr. Arnold Heaton personally performed the history, physical exam, and medical decision making; and confirmed the accuracy of the information in the transcribed note. Authenticated by Dr. Arnold Heaton on 12/21/16 at 15:48.. Sherry Crawford Dec 21, 2016 13:43 Arnold Penaloza MD Dec 30, 2016 20:12
[2016-12-21] MEDS ORDERED: PANT40TA3 PO (13:44)
--- NOTE | 2016-12-21 16:25 | HHI.PYPN ---
Subjective Remarks Patient discussed with treatment team, chart review, seen on unit. Patient showing some decrease in her verbalization today having some mild increased resistance to medication also. For now continue treatment Review of Systems Except as stated in HPI: all other systems reviewed are Neg Objective Alert: Yes [place]: Person Mood: Calm, Oppositional Affect: Flat Memory Intact: Immediate Hallucinations: Auditory (would not answer) Delusions: No Delusion Type: Other (would not answer) Suicidal: Ideation (would not answer) Homicidal: Ideation (would not answer) Insight/Judgement Very poor Labs Test 12/21/16 06:47 Sodium Level 142 MEQ/L Potassium Level 3.9 MEQ/L Chloride Level 108 MEQ/L Carbon Dioxide Level 23.1 MEQ/L Anion Gap 11 MEQ/L Blood Urea Nitrogen 17 MG/DL Creatinine 1.14 MG/DL Estimat Glomerular Filtration 58 ML/MIN Rate Random Glucose 128 MG/DL Calcium Level 9.4 MG/DL Vitals/IOs Vital Signs Date Time Temp Pulse Resp B/P Pulse Ox O2 Delivery O2 Flow Rate FiO2 12/21/16 05:08 101 18 112/81 99 12/20/16 20:27 97.8 Intake and Output 12/20/16 12/20/16 12/21/16 08:00 16:00 00:00 Intake Total 0 ml 1440 ml Balance 0 ml 1440 ml Assessment & Plan Problem List: (1) Schizophrenia, 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 Inpt. At this time patient would seriously decompensate if placed in a lower level of care Discharge Planning To be determined Sav Suh MD Dec 21, 2016 16:25
[2016-12-21 18:38] VITALS: BP 128/82; PULSE 85; RESP 16; TEMP 97.8; O2SAT 99
[2016-12-21] MEDS: REMOVE OLD NICOTINE PATCH T-DERMAL SCH (21:00)
[2016-12-21] MEDS: QUEtiapine FUMARATE 100 MG TAB PO SCH (21:33)
[2016-12-22 06:11] VITALS: BP 116/59; PULSE 84; RESP 20; TEMP 97.9; O2SAT 96
[2016-12-22] MEDS: LORazepam 0.5 MG TAB PO SCH ×4 (09:00→17:04)
[2016-12-22] MEDS: NICOTINE 21 MG/24 HR PATCH T-DERMAL SCH (09:00)
[2016-12-22] MEDS: SERTRALINE HCL 50 MG TAB PO SCH ×2 (09:00→09:10)
[2016-12-22] MEDS: PANTOPRAZOLE SOD 40 MG DELAYED RELEASE TAB PO SCH ×2 (09:00→09:10)
[2016-12-22] MEDS: QUEtiapine FUMARATE 25 MG TAB PO SCH ×3 (09:00→17:04)
--- NOTE | 2016-12-22 11:19 | HHI.PYPN ---
Subjective Remarks Patient seen in day room with nurse Juvenal the medical student Renee, chart reviewed. Patient alert more selectively be within 2 days ago less irritable than yesterday. Patient on Celexa compliance of medication. Will increase daytime Seroquel to 50 mg a.m. 50 mg 4 PM Review of Systems Except as stated in HPI: all other systems reviewed are Neg Objective Alert: Yes [place]: Person Mood: Calm, Oppositional Affect: Flat Memory Intact: Immediate Hallucinations: Auditory (would not answer) Delusions: No Delusion Type: Other (would not answer) Suicidal: Ideation (would not answer) Homicidal: Ideation (would not answer) Insight/Judgement Very poor Vitals/IOs Vital Signs Date Time Temp Pulse Resp B/P Pulse Ox O2 Delivery O2 Flow Rate FiO2 12/22/16 06:11 97.9 84 20 116/59 96 Intake and Output 12/21/16 12/21/16 12/22/16 08:00 16:00 00:00 Intake Total 1680 ml 700 ml 960 ml Balance 1680 ml 700 ml 960 ml Assessment & Plan Problem List: (1) Schizophrenia, 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 She medication adjustments above. Continue to encourage cooperation with medication Justification for Cont. Inpt. At this time patient will decompensate placed in the lower level of care Discharge Planning To be determined Sav Suh MD Dec 22, 2016 11:19
[2016-12-22 18:00] VITALS: BP 121/66; PULSE 90; RESP 18; TEMP 96.3; O2SAT 95
[2016-12-22] MEDS: QUEtiapine FUMARATE 100 MG TAB PO SCH (20:00)
[2016-12-22] MEDS: REMOVE OLD NICOTINE PATCH T-DERMAL SCH (20:24)
[2016-12-23 05:42] VITALS: BP 121/57; PULSE 73; RESP 19; TEMP 96.7; O2SAT 99
[2016-12-23] MEDS: ACETAMINOPHEN 325 MG TAB PO PRN (06:27)
[2016-12-23] MEDS: SERTRALINE HCL 50 MG TAB PO SCH (08:42)
[2016-12-23] MEDS: LORazepam 0.5 MG TAB PO SCH ×3 (08:42→17:59)
[2016-12-23] MEDS: PANTOPRAZOLE SOD 40 MG DELAYED RELEASE TAB PO SCH (08:43)
[2016-12-23] MEDS: NICOTINE 21 MG/24 HR PATCH T-DERMAL SCH (08:44)
[2016-12-23] MEDS: QUEtiapine FUMARATE 25 MG TAB PO SCH (09:00)
--- NOTE | 2016-12-23 13:13 | HHI.PYPN ---
Subjective Remarks Patient seen in day room with nurse Morenita, chart reviewed. Patient remained significantly resistant to medications with some increased vigilance. Needed extended coaxing to take her Seroquel. At this time patient remained psychotic with auditory hallucinations noted to be talking to herself, at times irritable. With me remain selectively mute her responses quite brief brusque and tangential. We'll condense Seroquel to 200 mg at at bedtime. At 2.5 mg Haldol elixir 8 AM and 4 PM Review of Systems Except as stated in HPI: all other systems reviewed are Neg Objective Alert: Yes [place]: Person Mood: Angry, Calm, Oppositional Affect: Labile, Flat Memory Intact: Immediate Hallucinations: Auditory (would not answer) Delusions: No Delusion Type: Other (somewhat vigilant today) Suicidal: Ideation (would not answer) Homicidal: Ideation (would not answer) Insight/Judgement Very poor Vitals/IOs Vital Signs Date Time Temp Pulse Resp B/P Pulse Ox O2 Delivery O2 Flow Rate FiO2 12/23/16 05:42 96.7 73 19 121/57 99 Intake and Output 12/22/16 12/22/16 12/23/16 08:00 16:00 00:00 Intake Total 480 ml 840 ml 840 ml Balance 480 ml 840 ml 840 ml Assessment & Plan Problem List: (1) Schizophrenia, 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 Markedly resistant to medications. See medication adjustments above Justification for Cont. Inpt. At this time patient will decompensate if placed in a lower level of care Discharge Planning To be determined Sav Suh MD Dec 23, 2016 13:13
[2016-12-23] MEDS: HALOPERIDOL LACTATE ORAL CONC 10 MG/5 ML CUP PO SCH ×2 (16:00→17:59)
[2016-12-23 19:04] VITALS: BP 123/66; PULSE 84; RESP 18; TEMP 98; O2SAT 98
[2016-12-23] MEDS: QUEtiapine FUMARATE 200 MG TAB PO SCH (20:35)
[2016-12-23] MEDS: REMOVE OLD NICOTINE PATCH T-DERMAL SCH (21:00)
[2016-12-24 06:01] VITALS: BP 94/50; PULSE 104; RESP 16; TEMP 98.7
[2016-12-24] MEDS: SERTRALINE HCL 50 MG TAB PO SCH (08:44)
[2016-12-24] MEDS: NICOTINE 21 MG/24 HR PATCH T-DERMAL SCH (08:44)
[2016-12-24] MEDS: LORazepam 0.5 MG TAB PO SCH ×3 (08:44→17:01)
[2016-12-24] MEDS: PANTOPRAZOLE SOD 40 MG DELAYED RELEASE TAB PO SCH (08:44)
--- NOTE | 2016-12-24 11:07 | HHI.PYPN ---
Subjective Remarks Patient seen in day room with nurse Morenita. Chart reviewed. Patient continues to show poor compliance with her medications especially the Haldol elixir. Also noted she continues to talk to herself as if having a conversation with imaginary person. Will change Haldol to 5 mg by mouth 8 AM and 6 PM and if she refuses give IM Haldol 5 mg ADM and [address] Review of Systems Except as stated in HPI: all other systems reviewed are Neg Objective Alert: Yes [place]: Person Mood: Angry, Calm, Oppositional Affect: Labile, Flat Memory Intact: Immediate Hallucinations: Auditory (would not answer) Delusions: No Delusion Type: Other (somewhat vigilant today) Suicidal: Ideation (would not answer) Homicidal: Ideation (would not answer) Insight/Judgement Very poor Vitals/IOs Vital Signs Date Time Temp Pulse Resp B/P Pulse Ox O2 Delivery O2 Flow Rate FiO2 12/24/16 06:01 98.7 104 16 94/50 12/23/16 19:04 98 Intake and Output 12/23/16 12/23/16 12/24/16 08:00 16:00 00:00 Intake Total 240 ml 600 ml 240 ml Output Total 3 ml Balance 237 ml 600 ml 240 ml Assessment & Plan Problem List: (1) Schizophrenia, 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 Poor compliance medication. Please see medication adjustments above Justification for Cont. Inpt. At this time patient will decompensate if placed in a lower level of care Discharge Planning To be determined Sav Suh MD Dec 24, 2016 11:06
[2016-12-24] MEDS: HALOPERIDOL 5 MG TAB PO SCH (17:01)
[2016-12-24] MEDS: HALOPERIDOL LACTATE 5 MG/ML AMP IM SCH (17:08)
[2016-12-24 19:09] VITALS: BP 104/63; PULSE 84; RESP 18; TEMP 98.7; O2SAT 98
[2016-12-24] MEDS: REMOVE OLD NICOTINE PATCH T-DERMAL SCH (21:00)
[2016-12-24] MEDS: QUEtiapine FUMARATE 200 MG TAB PO SCH (21:15)
[2016-12-25 05:22] VITALS: BP 99/58; PULSE 93; RESP 18; TEMP 98; O2SAT 97
[2016-12-25] MEDS: HALOPERIDOL LACTATE 5 MG/ML AMP IM SCH ×2 (08:00→18:00)
[2016-12-25] MEDS: HALOPERIDOL 5 MG TAB PO SCH ×3 (08:00→18:00)
[2016-12-25] MEDS: PANTOPRAZOLE SOD 40 MG DELAYED RELEASE TAB PO SCH (08:32)
[2016-12-25] MEDS: LORazepam 0.5 MG TAB PO SCH ×3 (08:32→18:00)
[2016-12-25] MEDS: SERTRALINE HCL 50 MG TAB PO SCH ×2 (08:32→09:00)
[2016-12-25] MEDS: NICOTINE 21 MG/24 HR PATCH T-DERMAL SCH (09:00)
--- NOTE | 2016-12-25 10:33 | HHI.PYPN ---
Subjective Remarks Patient seen with nurse Franki., Chart reviewed. Patient initially seen sitting on the bed and another patient's room. Patient easily redirected. The remains selectively mute today. Patient also has been cheeking of medication showing noncompliance with it that necessitating use of the IM Haldol. While denying any auditory hallucinations she still appears to be responding to internal stimuli Review of Systems Except as stated in HPI: all other systems reviewed are Neg Objective Alert: Yes [place]: Person Mood: Calm, Oppositional (mixed compliance with medication) Affect: Labile, Flat Memory Intact: Immediate Hallucinations: Auditory (appears to be responding to internal stimuli) Delusions: No Delusion Type: Other (somewhat vigilant today) Suicidal: Ideation (would not answer) Homicidal: Ideation (would not answer) Insight/Judgement Very poor Vitals/IOs Vital Signs Date Time Temp Pulse Resp B/P Pulse Ox O2 Delivery O2 Flow Rate FiO2 12/25/16 05:22 98.0 93 18 99/58 97 Intake and Output 12/24/16 12/24/16 12/25/16 08:00 16:00 00:00 Intake Total 1080 ml Balance 1080 ml Assessment & Plan Problem List: (1) Schizophrenia, 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 But able to be redirected. No other behavioral problems at this time. Justification for Cont. Inpt. At this time patient will decompensate if placed in a lower level of care Discharge Planning To be determined Sav Suh MD Dec 25, 2016 10:33
[2016-12-25 18:37] VITALS: BP 94/72; PULSE 91; RESP 18; TEMP 97.9; O2SAT 98
[2016-12-25] MEDS: REMOVE OLD NICOTINE PATCH T-DERMAL SCH (21:00)
[2016-12-25] MEDS: QUEtiapine FUMARATE 200 MG TAB PO SCH (21:01)
[2016-12-26 05:57] VITALS: BP 112/73; PULSE 88; RESP 16; TEMP 97.6; O2SAT 97
[2016-12-26] MEDS: HALOPERIDOL LACTATE 5 MG/ML AMP IM SCH ×2 (07:39→08:00)
[2016-12-26] MEDS: HALOPERIDOL 5 MG TAB PO SCH (08:00)
[2016-12-26] MEDS: NICOTINE 21 MG/24 HR PATCH T-DERMAL SCH (09:00)
[2016-12-26] MEDS: SERTRALINE HCL 50 MG TAB PO SCH (09:03)
[2016-12-26] MEDS: PANTOPRAZOLE SOD 40 MG DELAYED RELEASE TAB PO SCH (09:03)
[2016-12-26] MEDS: LORazepam 0.5 MG TAB PO SCH ×3 (09:03→17:33)
--- NOTE | 2016-12-26 14:28 | HHI.PYPN ---
Subjective Remarks Pt seen and discussed with staff. Pt remains isolative and seclusive. She continues to be selectively mute, but today has engaged more with staff and spontaneously spoken and requested care. She has been complaint with medication. Staff report that she as been tearful and responding to internal stimuli intermittently. No SI/HI Objective Alert: Yes [place]: Person Mood: Calm Affect: Flat Memory Intact: Comment (fair) Hallucinations: Auditory (appears to be responding to internal stimuli) Delusions: No Delusion Type: Other (no obvious delusions but is vigilant and watchful) Suicidal: Ideation (denies) Homicidal: Ideation (denies) Insight/Judgement poor Vitals/IOs Vital Signs Date Time Temp Pulse Resp B/P Pulse Ox O2 Delivery O2 Flow Rate FiO2 12/26/16 05:57 97.6 88 16 112/73 97 Intake and Output 12/25/16 12/25/16 12/26/16 08:00 16:00 00:00 Intake Total 0 ml 1920 ml Balance 0 ml 1920 ml Assessment & Plan Problem List: (1) Schizophrenia, 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 Continue current tx plan. Estimated LOS: days Justification for Cont. Inpt. impairments in self care and reality construction Saray Rose MD Dec 26, 2016 14:28
[2016-12-26] MEDS: ACETAMINOPHEN 325 MG TAB PO PRN (17:32)
[2016-12-26 18:01] VITALS: BP_SYST 154; BP_SYST 91; BP_DIAS 69; BP_DIAS 77; PULSE 87; PULSE 94; RESP 16; RESP 18; TEMP 97.5; TEMP 97.9; O2SAT 97; O2SAT 99
[2016-12-26] MEDS: QUEtiapine FUMARATE 200 MG TAB PO SCH (20:14)
[2016-12-26] MEDS: REMOVE OLD NICOTINE PATCH T-DERMAL SCH (20:15)
[2016-12-27 06:00] VITALS: BP 112/78; PULSE 78; RESP 17; TEMP 97.4; O2SAT 96
[2016-12-27] MEDS: LORazepam 0.5 MG TAB PO SCH ×3 (08:44→17:24)
[2016-12-27] MEDS: PANTOPRAZOLE SOD 40 MG DELAYED RELEASE TAB PO SCH (08:44)
[2016-12-27] MEDS: NICOTINE 21 MG/24 HR PATCH T-DERMAL SCH (08:44)
[2016-12-27] MEDS: SERTRALINE HCL 50 MG TAB PO SCH (08:44)
--- NOTE | 2016-12-27 14:57 | HHI.PYPN ---
Subjective Remarks Pt seen and discussed with staff. She has been less seclusive today and spent 2 hours in dayroom this morning. She engages a little more in interview with MD. No SI/HI. Compliant with medications and tolerating without side effects. Objective Alert: Yes [place]: Person Mood: Calm Affect: Flat Memory Intact: Comment (fair) Hallucinations: Auditory (appears to be responding to internal stimuli) Delusions: No Delusion Type: Other (no obvious delusions but is vigilant and watchful) Suicidal: Ideation (denies) Homicidal: Ideation (denies) Insight/Judgement poor Vitals/IOs Vital Signs Date Time Temp Pulse Resp B/P Pulse Ox O2 Delivery O2 Flow Rate FiO2 12/27/16 06:00 97.4 78 17 112/78 96 Intake and Output 12/26/16 12/26/16 12/27/16 08:00 16:00 00:00 Intake Total 0 ml 240 ml Balance 0 ml 240 ml Assessment & Plan Problem List: (1) Schizophrenia, 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 Estimated LOS: days Justification for Cont. Inpt. impairments in self care and reality construction. Saray Rose MD Dec 27, 2016 14:57
[2016-12-27 18:20] VITALS: BP 121/67; PULSE 71; RESP 16; TEMP 96.9; O2SAT 97
[2016-12-27] MEDS: REMOVE OLD NICOTINE PATCH T-DERMAL SCH (20:35)
[2016-12-27] MEDS: QUEtiapine FUMARATE 200 MG TAB PO SCH (20:35)
[2016-12-28 05:48] VITALS: BP 138/63; PULSE 73; RESP 18; TEMP 97.8; O2SAT 98
[2016-12-28] MEDS: NICOTINE 21 MG/24 HR PATCH T-DERMAL SCH (09:00)
[2016-12-28] MEDS: PANTOPRAZOLE SOD 40 MG DELAYED RELEASE TAB PO SCH (09:12)
[2016-12-28] MEDS: SERTRALINE HCL 50 MG TAB PO SCH (09:12)
[2016-12-28] MEDS: LORazepam 0.5 MG TAB PO SCH ×3 (09:13→18:13)
--- NOTE | 2016-12-28 15:27 | HHI.PYPN ---
Subjective Remarks Patient discussed with treatment team, chart review, patient unit. It appears patient's health care surrogate has refused consent for the Haldol. And also appears patient is doing better with all the Seroquel being given at bedtime. For now we'll discontinue the Haldol continue to observe. Patient somewhat calm with me also selectively mute Review of Systems Except as stated in HPI: all other systems reviewed are Neg Objective Alert: Yes [place]: Person Mood: Calm Affect: Flat Memory Intact: Comment (fair) Hallucinations: Auditory (appears to be responding to internal stimuli) Delusions: No Delusion Type: Other (no obvious delusions but is vigilant and watchful) Suicidal: Ideation (denies) Homicidal: Ideation (denies) Insight/Judgement Very poor Vitals/IOs Vital Signs Date Time Temp Pulse Resp B/P Pulse Ox O2 Delivery O2 Flow Rate FiO2 12/28/16 05:48 97.8 73 18 138/63 98 Intake and Output 12/27/16 12/27/16 12/28/16 08:00 16:00 00:00 Intake Total 880 ml 480 ml Balance 880 ml 480 ml Assessment & Plan Problem List: (1) Schizophrenia, 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 No behavioral problems at this time. For now continue treatment see medication changes above Justification for Cont. Inpt. At this time patient will decompensate if placed in a lower level of care Discharge Planning To be determined Sav Suh MD Dec 28, 2016 15:27
[2016-12-28 18:49] VITALS: BP 113/53; PULSE 82; RESP 18; TEMP 97.4; O2SAT 95
[2016-12-28] MEDS: REMOVE OLD NICOTINE PATCH T-DERMAL SCH (21:00)
[2016-12-28] MEDS: QUEtiapine FUMARATE 200 MG TAB PO SCH (21:09)
[2016-12-28] MEDS: ACETAMINOPHEN 325 MG TAB PO PRN (21:10)
[2016-12-29 06:09] VITALS: BP 119/68; PULSE 84; RESP 20; TEMP 97.8; O2SAT 95
[2016-12-29] MEDS: PANTOPRAZOLE SOD 40 MG DELAYED RELEASE TAB PO SCH (08:33)
[2016-12-29] MEDS: SERTRALINE HCL 50 MG TAB PO SCH (08:33)
[2016-12-29] MEDS: LORazepam 0.5 MG TAB PO SCH ×3 (08:33→18:17)
[2016-12-29] MEDS: NICOTINE 21 MG/24 HR PATCH T-DERMAL SCH (09:00)
--- NOTE | 2016-12-29 10:17 | HHI.PYPN ---
Subjective Remarks Patient seen in day room with nurse Franki, patient calm with me continues selectively mute. She continues to somewhat reluctantly nod her head yes when asked if she is still hearing voices. Though she is no significant behavioral problems. We'll request permission from health care surrogate/guardian advocate to add Respinol M tab 1 mg 8 AM and 6 PM Review of Systems Except as stated in HPI: all other systems reviewed are Neg Objective Alert: Yes [place]: Person Mood: Calm Affect: Flat Memory Intact: Comment (fair) Hallucinations: Auditory (appears to be responding to internal stimuli) Delusions: No Delusion Type: Other (no obvious delusions but is vigilant and watchful) Suicidal: Ideation (denies) Homicidal: Ideation (denies) Insight/Judgement Very poor Vitals/IOs Vital Signs Date Time Temp Pulse Resp B/P Pulse Ox O2 Delivery O2 Flow Rate FiO2 12/29/16 06:09 97.8 84 20 119/68 95 Intake and Output 12/28/16 12/28/16 12/29/16 08:00 16:00 00:00 Intake Total 840 ml Balance 840 ml Assessment & Plan Problem List: (1) Schizophrenia, 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 Though no significant behavioral problems. Will ask guardian [email or web address] okay to start Respinol M tab 1 mg in a.m. and 6 PM Justification for Cont. Inpt. If this time patient would significantly decompensated if placed in a lower level of care Discharge Planning To be determined Sav Suh MD Dec 29, 2016 10:16
[2016-12-29] MEDS: risperiDONE ODT 1 MG TAB PO SCH (18:17)
[2016-12-29 20:20] VITALS: TEMP 98
[2016-12-29] MEDS: REMOVE OLD NICOTINE PATCH T-DERMAL SCH (21:00)
[2016-12-29] MEDS: QUEtiapine FUMARATE 200 MG TAB PO SCH ×2 (21:00→21:40)
[2016-12-30 05:56] VITALS: BP 127/58; PULSE 71; RESP 17; TEMP 99.2; O2SAT 98
[2016-12-30] MEDS: NICOTINE 21 MG/24 HR PATCH T-DERMAL SCH (09:00)
[2016-12-30] MEDS: PANTOPRAZOLE SOD 40 MG DELAYED RELEASE TAB PO SCH (09:49)
[2016-12-30] MEDS: SERTRALINE HCL 50 MG TAB PO SCH (09:49)
[2016-12-30] MEDS: LORazepam 0.5 MG TAB PO SCH ×2 (09:50→20:58)
[2016-12-30] MEDS: risperiDONE ODT 1 MG TAB PO SCH ×2 (09:53→18:05)
--- NOTE | 2016-12-30 12:11 | HHI.PYPN ---
Subjective Remarks Patient discussed with treatment team including diagnosis, medications, discharge planning, and placement. Chart reviewed. Patient seen on unit. Patient continues selectively mute giving very brief infrequent whispered responses to me. At times she is still appears to be responding to internal stimuli. Though there is fair to good eye contact. Compliant medications. I question the patient is leaning towards baseline. Is opinion of the treatment team the patient at this time is unhappy with inability to live independently will be looking for an ISSAC/mcc will decrease Ativan from 0.5 3 times a day to 0.5 twice a day Review of Systems Except as stated in HPI: all other systems reviewed are Neg Objective Alert: Yes [place]: Person Mood: Calm Affect: Flat Memory Intact: Comment (fair) Hallucinations: Auditory (appears to be responding to internal stimuli) Delusions: No Delusion Type: Other (no obvious delusions but is vigilant and watchful) Suicidal: Ideation (denies) Homicidal: Ideation (denies) Insight/Judgement Very poor Vitals/IOs Vital Signs Date Time Temp Pulse Resp B/P Pulse Ox O2 Delivery O2 Flow Rate FiO2 12/30/16 05:56 99.2 71 17 127/58 98 Intake and Output 12/29/16 12/29/16 12/30/16 08:00 16:00 00:00 Intake Total 720 ml 120 ml Balance 720 ml 120 ml Assessment & Plan Problem List: (1) Schizophrenia, undifferentiated ICD Code: F20.3 Assessment & Plan Estimated LOS: days patient no behavioral problems, compliant medications, see medication adjustment above. It appears at times patient continues to respond to internal stimuli Justification for Cont. Inpt. At this time patient will decompensate and placed in a lower level of care Discharge Planning To be determined Sav Suh MD Dec 30, 2016 12:11
[2016-12-30] MEDS: ACETAMINOPHEN 325 MG TAB PO PRN (16:41)
[2016-12-30 19:56] VITALS: BP 114/67; PULSE 89; RESP 18; TEMP 99.1; O2SAT 94
[2016-12-30] MEDS: QUEtiapine FUMARATE 200 MG TAB PO SCH (20:58)
[2016-12-30] MEDS: REMOVE OLD NICOTINE PATCH T-DERMAL SCH (21:00)
[2016-12-31 05:25] VITALS: BP 113/67; PULSE 86; RESP 17; TEMP 87.6; O2SAT 98
[2016-12-31] MEDS: NICOTINE 21 MG/24 HR PATCH T-DERMAL SCH (09:00)
[2016-12-31] MEDS: PANTOPRAZOLE SOD 40 MG DELAYED RELEASE TAB PO SCH ×2 (09:07→09:09)
[2016-12-31] MEDS: LORazepam 0.5 MG TAB PO SCH ×2 (09:08→09:09)
[2016-12-31] MEDS: SERTRALINE HCL 50 MG TAB PO SCH (09:09)
[2016-12-31] MEDS: risperiDONE ODT 1 MG TAB PO SCH ×2 (09:13→17:24)
[2016-12-31] MEDS: ACETAMINOPHEN 325 MG TAB PO PRN (10:44)
--- NOTE | 2016-12-31 12:10 | HHI.PYPN ---
Subjective Remarks Patient seen in her room with nurse Marlee. Patient in bed covers to her chin continues selectively mute with me though her responses with nodding and mouthing appropriately. Patient compliant medications. For now continue treatment Review of Systems Except as stated in HPI: all other systems reviewed are Neg Objective Alert: Yes [place]: Person Mood: Calm Affect: Flat Memory Intact: Comment (fair) Hallucinations: Auditory (appears to be responding to internal stimuli) Delusions: No Delusion Type: Other (no obvious delusions but is vigilant and watchful) Suicidal: Ideation (denies) Homicidal: Ideation (denies) Insight/Judgement Very poor Vitals/IOs Vital Signs Date Time Temp Pulse Resp B/P Pulse Ox O2 Delivery O2 Flow Rate FiO2 12/31/16 05:25 87.6 86 17 113/67 98 Intake and Output 12/30/16 12/30/16 12/31/16 08:00 16:00 00:00 Intake Total 960 ml Balance 960 ml Assessment & Plan Problem List: (1) Schizophrenia, undifferentiated ICD Code: F20.3 Assessment & Plan Estimated LOS: days patient continue somewhat confused, appears to be responding to internal stimuli. Continues to isolate be selectively mute. Compliant medications Justification for Cont. Inpt. At this time patient will decompensate if placed in the lower level of care Discharge Planning To be determined Sav Suh MD Dec 31, 2016 12:10
[2016-12-31 18:00] VITALS: BP 137/79; PULSE 100; RESP 17; TEMP 98.2; O2SAT 98
[2016-12-31] MEDS: REMOVE OLD NICOTINE PATCH T-DERMAL SCH (21:00)
[2016-12-31] MEDS: QUEtiapine FUMARATE 200 MG TAB PO SCH (21:54)
[2017-01-01 06:01] VITALS: BP 100/50; PULSE 81; RESP 16; TEMP 97.9
[2017-01-01] MEDS: NICOTINE 21 MG/24 HR PATCH T-DERMAL SCH ×2 (09:00→09:55)
[2017-01-01] MEDS: SERTRALINE HCL 50 MG TAB PO SCH (09:44)
[2017-01-01] MEDS: LORazepam 0.5 MG TAB PO SCH ×2 (09:45→09:55)
[2017-01-01] MEDS: REMOVE OLD NICOTINE PATCH T-DERMAL SCH ×2 (09:45→09:56)
[2017-01-01] MEDS: PANTOPRAZOLE SOD 40 MG DELAYED RELEASE TAB PO SCH ×2 (09:45→09:55)
[2017-01-01] MEDS: QUEtiapine FUMARATE 200 MG TAB PO SCH ×3 (09:48→22:24)
[2017-01-01] MEDS: risperiDONE ODT 1 MG TAB PO SCH (09:54)
--- NOTE | 2017-01-01 14:53 | HHI.PYPN ---
Subjective Remarks Patient seen in her room with floor staff, patient continues to isolate spending much time in bed. She does respond to me though very intermittently and briefly verbally continues with marked selective mutism. Also appears to be responding to internal stimuli Will increase scheduled Respinol to 1 mg a.m. 20 mg 6 PM Review of Systems Except as stated in HPI: all other systems reviewed are Neg Objective Alert: Yes [place]: Person Mood: Calm Affect: Flat Memory Intact: Comment (fair) Hallucinations: Auditory (appears to be responding to internal stimuli) Delusions: No Delusion Type: Other (no obvious delusions but is vigilant and watchful) Suicidal: Ideation (denies) Homicidal: Ideation (denies) Insight/Judgement Very poor Vitals/IOs Vital Signs Date Time Temp Pulse Resp B/P Pulse Ox O2 Delivery O2 Flow Rate FiO2 01/01/17 06:01 97.9 81 16 100/50 12/31/16 18:00 98 Intake and Output 12/31/16 12/31/16 01/01/17 08:00 16:00 00:00 Intake Total 480 ml 960 ml 960 ml Balance 480 ml 960 ml 960 ml Assessment & Plan Problem List: (1) Schizophrenia, undifferentiated ICD Code: F20.3 Assessment & Plan Estimated LOS: days patient continues to isolate, continue psychotic with auditory hallucinations. She medication adjustments above Justification for Cont. Inpt. At this time patient will decompensate if placed in a lower level of care Discharge Planning To be determined Sav Suh MD Jan 01, 2017 14:53
[2017-01-01] MEDS: risperiDONE ODT 2 MG TAB PO SCH (17:24)
[2017-01-01] MEDS: ACETAMINOPHEN 325 MG TAB PO PRN (17:25)
[2017-01-01 18:00] VITALS: BP 113/73; PULSE 97; RESP 16; TEMP 98.3; O2SAT 98
[2017-01-02] MEDS: ACETAMINOPHEN 325 MG TAB PO PRN (01:15)
[2017-01-02 05:21] VITALS: BP 99/58; PULSE 94; RESP 16; TEMP 97.3; O2SAT 98
[2017-01-02] MEDS: SERTRALINE HCL 50 MG TAB PO SCH (09:00)
[2017-01-02] MEDS: risperiDONE ODT 1 MG TAB PO SCH (09:00)
[2017-01-02] MEDS: LORazepam 0.5 MG TAB PO SCH ×2 (09:00→21:20)
--- NOTE | 2017-01-02 12:48 | HHI.PYPN ---
Subjective Remarks Patient was seen and case discussed with nursing. Patient remains quite and seclusive to room. She is once again minimally cooperative during the interview with myself and the nurse. Using to answer most questions. She refused her medications this morning and would not say why. Denies suicidal ideation intent or plan. Objective Alert: Yes [place]: Person Mood: Oppositional Affect: Blunted Memory Intact: Comment (unable to test) Hallucinations: Auditory (appears to be responding to internal stimuli) Delusions: No Delusion Type: Other (no obvious delusions but is vigilant and watchful) Suicidal: Ideation (denies) Homicidal: Ideation (denies) Insight/Judgement Poor Vitals/IOs Vital Signs Date Time Temp Pulse Resp B/P Pulse Ox O2 Delivery O2 Flow Rate FiO2 01/02/17 05:21 97.3 94 16 99/58 98 Intake and Output 01/01/17 01/01/17 01/02/17 08:00 16:00 00:00 Intake Total 240 ml 480 ml Balance 240 ml 480 ml Assessment & Plan Problem List: (1) Schizophrenia, 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 Inpt. Patient will decompensate in a less restrictive setting Fran Cabral DO Jan 02, 2017 12:48
[2017-01-02] MEDS: risperiDONE ODT 2 MG TAB PO SCH (18:01)
[2017-01-02 18:43] VITALS: BP 146/74; PULSE 112; RESP 16; TEMP 97.7; O2SAT 100
[2017-01-02] MEDS: REMOVE OLD NICOTINE PATCH T-DERMAL SCH (21:00)
[2017-01-02] MEDS: QUEtiapine FUMARATE 200 MG TAB PO SCH ×2 (21:20→21:26)
[2017-01-03 06:29] VITALS: BP 134/68; PULSE 86; RESP 18; TEMP 96.5; O2SAT 96
[2017-01-03] MEDS: PANTOPRAZOLE SOD 40 MG DELAYED RELEASE TAB PO SCH (08:41)
[2017-01-03] MEDS: risperiDONE ODT 1 MG TAB PO SCH (08:41)
[2017-01-03] MEDS: SERTRALINE HCL 50 MG TAB PO SCH (08:42)
[2017-01-03] MEDS: LORazepam 0.5 MG TAB PO SCH ×2 (08:42→21:22)
[2017-01-03] MEDS: NICOTINE 21 MG/24 HR PATCH T-DERMAL SCH (09:00)
[2017-01-03] MEDS: ACETAMINOPHEN 325 MG TAB PO PRN (11:04)
--- NOTE | 2017-01-03 11:22 | HHI.PYPN ---
Subjective Remarks Patient was seen and case discussed with nursing. Interview done with the nurse asking questions for me given patient is a history of not cooperating with myself. Patient is a lot more talkative to nurse today. She is answering all his questions and is not shutting down. Complaining of leg pain. Mood is "little sad." Denies suicidal ideation intent or plan. Denies psychotic symptoms. She remains seclusive to bed and not interacting with others Objective Alert: Yes [place]: Person, Place Mood: Depressed Affect: Blunted Memory Intact: Comment (unable to test) Hallucinations: Auditory (denies) Delusions: No Delusion Type: Other (no obvious delusions but is vigilant and watchful) Suicidal: Ideation (denies) Homicidal: Ideation (denies) Insight/Judgement Poor Vitals/IOs Vital Signs Date Time Temp Pulse Resp B/P Pulse Ox O2 Delivery O2 Flow Rate FiO2 01/03/17 06:29 96.5 86 18 134/68 96 Intake and Output 01/02/17 01/02/17 01/03/17 08:00 16:00 00:00 Intake Total 120 ml 240 ml 0 ml Balance 120 ml 240 ml 0 ml Assessment & Plan Problem List: (1) Schizophrenia, 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 Inpt. Patient will decompensate in a less restrictive setting Fran Cabral DO Jan 03, 2017 11:22
[2017-01-03] MEDS: risperiDONE ODT 2 MG TAB PO SCH (18:34)
[2017-01-03 18:58] VITALS: BP 149/94; PULSE 86; RESP 18; TEMP 97.4; O2SAT 95
[2017-01-03] MEDS: REMOVE OLD NICOTINE PATCH T-DERMAL SCH (21:00)
[2017-01-03] MEDS: QUEtiapine FUMARATE 200 MG TAB PO SCH (21:22)
[2017-01-04 05:22] VITALS: BP 67/42; PULSE 86; RESP 17; TEMP 98.6; O2SAT 96
[2017-01-04 05:51] VITALS: BP 91/57
[2017-01-04] MEDS: risperiDONE ODT 1 MG TAB PO SCH (08:50)
[2017-01-04] MEDS: LORazepam 0.5 MG TAB PO SCH ×2 (08:50→21:32)
[2017-01-04] MEDS: PANTOPRAZOLE SOD 40 MG DELAYED RELEASE TAB PO SCH (08:50)
[2017-01-04] MEDS: SERTRALINE HCL 50 MG TAB PO SCH (08:50)
[2017-01-04] MEDS: ACETAMINOPHEN 325 MG TAB PO PRN (08:54)
[2017-01-04] MEDS: NICOTINE 21 MG/24 HR PATCH T-DERMAL SCH (08:56)
--- NOTE | 2017-01-04 16:03 | HHI.PYPN ---
Subjective Remarks Patient discussed with treatment team, chart review, patient seen in her room. The floor staff. Patient continues selectively mute with me but did discuss with her placement issues. It appears the sister in [facility], [place] would be willing to have her come and stay with her. Patient at this time is refusing that they emphasized with her that she cannot return to her independent living. That it would be either her sister or some type of her fdc. I suggested patient consider that. Now continue treatment Review of Systems Except as stated in HPI: all other systems reviewed are Neg Objective Alert: Yes [place]: Person, Place Mood: Depressed Affect: Blunted Memory Intact: Comment (unable to test) Hallucinations: Auditory (denies) Delusions: No Delusion Type: Other (no obvious delusions but is vigilant and watchful) Suicidal: Ideation (denies) Homicidal: Ideation (denies) Insight/Judgement Very poor Vitals/IOs Vital Signs Date Time Temp Pulse Resp B/P Pulse Ox O2 Delivery O2 Flow Rate FiO2 01/04/17 05:51 91/57 01/04/17 05:22 98.6 86 17 96 Intake and Output 01/03/17 01/03/17 01/04/17 08:00 16:00 00:00 Intake Total 480 ml 600 ml Balance 480 ml 600 ml Assessment & Plan Problem List: (1) Schizophrenia, undifferentiated ICD Code: F20.3 Assessment & Plan Estimated LOS: days patient continues somewhat psychotic at times appears to be responding to internal stimuli. Though compliant medication. There is marked resistance to discussing but could be an appropriate placement. Justification for Cont. Inpt. At this time patient will decompensate if place to the lower level of care Discharge Planning To be determined Sav Suh MD Jan 04, 2017 16:03
[2017-01-04] MEDS: risperiDONE ODT 2 MG TAB PO SCH (17:17)
[2017-01-04 18:00] VITALS: BP 90/54; PULSE 85; RESP 18; TEMP 97.1; O2SAT 98
[2017-01-04] MEDS: QUEtiapine FUMARATE 200 MG TAB PO SCH (21:32)
[2017-01-04] MEDS: REMOVE OLD NICOTINE PATCH T-DERMAL SCH (21:36)
[2017-01-05 06:00] VITALS: BP 96/69; PULSE 92; RESP 18; TEMP 98.2; O2SAT 96
[2017-01-05] MEDS: PANTOPRAZOLE SOD 40 MG DELAYED RELEASE TAB PO SCH (08:45)
[2017-01-05] MEDS: SERTRALINE HCL 50 MG TAB PO SCH (08:45)
[2017-01-05] MEDS: risperiDONE ODT 1 MG TAB PO SCH (08:45)
[2017-01-05] MEDS: NICOTINE 21 MG/24 HR PATCH T-DERMAL SCH (08:46)
[2017-01-05] MEDS: LORazepam 0.5 MG TAB PO SCH ×2 (09:00→20:52)
--- NOTE | 2017-01-05 15:14 | HHI.PYPN ---
Subjective Remarks Patient seen in day room with nurse Eric, chart review. Patient slept well last night, continues to have no behavior problems, though continues to isolate. She continues selectively mute also. Compliant medications. Patient still shaking her head refusing to discuss the possibility of going to live with her sister in my office Review of Systems Except as stated in HPI: all other systems reviewed are Neg Objective Alert: Yes [place]: Person, Place Mood: Depressed Affect: Blunted Memory Intact: Comment (unable to test) Hallucinations: Auditory (denies) Delusions: No Delusion Type: Other (no obvious delusions but is vigilant and watchful) Suicidal: Ideation (denies) Homicidal: Ideation (denies) Insight/Judgement Very poor Vitals/IOs Vital Signs Date Time Temp Pulse Resp B/P Pulse Ox O2 Delivery O2 Flow Rate FiO2 01/05/17 06:00 98.2 92 18 96/69 96 Intake and Output 01/04/17 01/04/17 01/05/17 08:00 16:00 00:00 Intake Total 300 ml 240 ml 360 ml Balance 300 ml 240 ml 360 ml Assessment & Plan Problem List: (1) Schizophrenia, undifferentiated ICD Code: F20.3 Assessment & Plan Estimated LOS: days patient continue psychotic selectively mute. And isolating Justification for Cont. Inpt. At this time patient will decompensate the placed on the lower level of care Discharge Planning To be determined Sav Suh MD Jan 05, 2017 15:14
[2017-01-05] MEDS: risperiDONE ODT 2 MG TAB PO SCH (16:31)
[2017-01-05] MEDS: ACETAMINOPHEN 325 MG TAB PO PRN (16:35)
[2017-01-05 18:00] VITALS: BP 104/67; PULSE 96; RESP 18; TEMP 96.4; O2SAT 97
[2017-01-05] MEDS: REMOVE OLD NICOTINE PATCH T-DERMAL SCH (20:52)
[2017-01-05] MEDS: QUEtiapine FUMARATE 200 MG TAB PO SCH (20:52)
[2017-01-06 05:21] VITALS: BP 105/57; PULSE 87; RESP 17; TEMP 98.1; O2SAT 98
[2017-01-06] MEDS: NICOTINE 21 MG/24 HR PATCH T-DERMAL SCH ×2 (09:00→09:59)
[2017-01-06] MEDS: SERTRALINE HCL 50 MG TAB PO SCH (09:59)
[2017-01-06] MEDS: risperiDONE ODT 1 MG TAB PO SCH (09:59)
[2017-01-06] MEDS: PANTOPRAZOLE SOD 40 MG DELAYED RELEASE TAB PO SCH (09:59)
[2017-01-06] MEDS: LORazepam 0.5 MG TAB PO SCH ×2 (09:59→21:00)
--- NOTE | 2017-01-06 10:53 | HHI.PYPN ---
Subjective Remarks Patient seen in her room with nurse Helena and family practice resident lubna. Patient initially verbal with me trying slight improvement in her affect and a conversation. However as we started to discuss discharge plans patient stated she wanted to stay here, implying an extended stay, as I progressed with the conversation and then included the possibility of moving in with her sister in [place] patient became nonverbal close her eyes would not respond to me or look at me. It appears placement a becomes somewhat problematic. Patient compliant medications no other significant behavioral problems, though she still somewhat obliquely acknowledges continuing auditory hallucinations Review of Systems Except as stated in HPI: all other systems reviewed are Neg Objective Alert: Yes [place]: Person, Place Mood: Depressed Affect: Blunted Memory Intact: Comment (unable to test) Hallucinations: Auditory (denies) Delusions: No Delusion Type: Other (no obvious delusions but is vigilant and watchful) Suicidal: Ideation (denies) Homicidal: Ideation (denies) Insight/Judgement Very poor Vitals/IOs Vital Signs Date Time Temp Pulse Resp B/P Pulse Ox O2 Delivery O2 Flow Rate FiO2 01/06/17 05:21 98.1 87 17 105/57 98 Intake and Output 01/05/17 01/05/17 01/06/17 08:00 16:00 00:00 Intake Total 600 ml 240 ml Balance 600 ml 240 ml Assessment & Plan Problem List: (1) Schizophrenia, undifferentiated ICD Code: F20.3 Assessment & Plan Estimated LOS: days patient continues somewhat psychotic isolative with selective mutism. Continues to refuse placement with her sister. Justification for Cont. Inpt. At this time patient will decompensate if placed in a lower level of care Discharge Planning To be determined Sav Suh MD Jan 06, 2017 10:53
[2017-01-06] MEDS: risperiDONE ODT 2 MG TAB PO SCH (18:15)
[2017-01-06 18:47] VITALS: BP 89/50; PULSE 86; RESP 18; TEMP 97.9; O2SAT 97
[2017-01-06] MEDS: REMOVE OLD NICOTINE PATCH T-DERMAL SCH (21:00)
[2017-01-06] MEDS: QUEtiapine FUMARATE 200 MG TAB PO SCH (21:00)
[2017-01-07 05:00] VITALS: PULSE 95; RESP 18; TEMP 97.6; O2SAT 99
[2017-01-07] MEDS: NICOTINE 21 MG/24 HR PATCH T-DERMAL SCH (09:00)
[2017-01-07] MEDS: PANTOPRAZOLE SOD 40 MG DELAYED RELEASE TAB PO SCH (09:06)
[2017-01-07] MEDS: risperiDONE ODT 1 MG TAB PO SCH (09:06)
[2017-01-07] MEDS: SERTRALINE HCL 50 MG TAB PO SCH (09:07)
[2017-01-07] MEDS: LORazepam 0.5 MG TAB PO SCH ×2 (09:07→20:57)
[2017-01-07] MEDS: REMOVE OLD NICOTINE PATCH T-DERMAL SCH (09:10)
--- NOTE | 2017-01-07 15:13 | HHI.PYPN ---
Subjective Remarks Patient seen in her room with nurse Morenita, patient sitting on the side of her bed, compliant medications, today is more verbal and appropriate with me. She is vague about persistent auditory hallucinations. When asked about placement issues she adamantly refuses to go to her sister's saying she likes it here pointing to her bed. I repeated to her the fact that this is acute psychiatric unit. Placements need to be found and if refuses her sister's offer need to consider a local CARE HOME as soon as one is follow. Review of Systems Except as stated in HPI: all other systems reviewed are Neg Objective Alert: Yes [place]: Person, Place Mood: Depressed Affect: Blunted Memory Intact: Comment (unable to test) Hallucinations: Auditory (denies) Delusions: No Delusion Type: Other (no obvious delusions but is vigilant and watchful) Suicidal: Ideation (denies) Homicidal: Ideation (denies) Insight/Judgement Very poor Vitals/IOs Vital Signs Date Time Temp Pulse Resp B/P Pulse Ox O2 Delivery O2 Flow Rate FiO2 01/07/17 05:00 97.6 95 18 99 Intake and Output 01/06/17 01/06/17 01/07/17 08:00 16:00 00:00 Intake Total 360 ml 1280 ml 240 ml Balance 360 ml 1280 ml 240 ml Assessment & Plan Problem List: (1) Schizophrenia, undifferentiated ICD Code: F20.3 Assessment & Plan Estimated LOS: days patient showing some increased focus though continues marked denial of placement options. She remains somewhat psychotic also. For now continue treatment Justification for Cont. Inpt. At this time patient will decompensate if placed in a lower level of care Discharge Planning To be determined Sav Suh MD Jan 07, 2017 15:13
[2017-01-07] MEDS: risperiDONE ODT 2 MG TAB PO SCH (17:48)
[2017-01-07 17:56] VITALS: BP 130/67; PULSE 72; RESP 18; TEMP 98.2; O2SAT 99
[2017-01-07] MEDS: QUEtiapine FUMARATE 200 MG TAB PO SCH (20:57)
[2017-01-08 05:01] VITALS: BP 109/60; PULSE 89; RESP 16; TEMP 97.8; O2SAT 97
[2017-01-08] MEDS: ACETAMINOPHEN 325 MG TAB PO PRN (08:50)
[2017-01-08] MEDS: risperiDONE ODT 1 MG TAB PO SCH (08:51)
[2017-01-08] MEDS: LORazepam 0.5 MG TAB PO SCH ×2 (08:51→20:13)
[2017-01-08] MEDS: PANTOPRAZOLE SOD 40 MG DELAYED RELEASE TAB PO SCH (08:51)
[2017-01-08] MEDS: SERTRALINE HCL 50 MG TAB PO SCH (08:51)
[2017-01-08] MEDS: NICOTINE 21 MG/24 HR PATCH T-DERMAL SCH (09:00)
--- NOTE | 2017-01-08 12:53 | HHI.PYPN ---
Subjective Remarks Patient seen in her room with nurse Franki, chart review, patient not as verbalize yesterday. However she continues to refuse considering moving in with sister-in -law of this. Session rather go to a snf here in town. Patient compliant with medications. At times still appears to be responding to internal stimuli. Will increase Respinol to 2 mg 8 AM and 4 PM Review of Systems Except as stated in HPI: all other systems reviewed are Neg Objective Alert: Yes [place]: Person, Place Mood: Depressed Affect: Blunted Memory Intact: Comment (unable to test) Hallucinations: Auditory (denies) Delusions: No Delusion Type: Other (no obvious delusions but is vigilant and watchful) Suicidal: Ideation (denies) Homicidal: Ideation (denies) Insight/Judgement Very poor Vitals/IOs Vital Signs Date Time Temp Pulse Resp B/P Pulse Ox O2 Delivery O2 Flow Rate FiO2 01/08/17 05:01 97.8 89 16 109/60 97 Intake and Output 01/07/17 01/07/17 01/08/17 08:00 16:00 00:00 Intake Total 0 ml 1080 ml 1200 ml Balance 0 ml 1080 ml 1200 ml Assessment & Plan Problem List: (1) Schizophrenia, undifferentiated ICD Code: F20.3 Assessment & Plan Estimated LOS: days patient continue psychotic, isolative, though compliant medications. Please to medication adjustment above Justification for Cont. Inpt. At this time patient will decompensate placed in a lower level of care Discharge Planning To be determined Sav Suh MD Jan 08, 2017 12:52
[2017-01-08 17:37] VITALS: BP 102/56; PULSE 78; RESP 18; TEMP 98.5; O2SAT 97
[2017-01-08] MEDS: risperiDONE ODT 2 MG TAB PO SCH (18:00)
[2017-01-08 19:12] VITALS: BP 102/56; PULSE 78; RESP 18; TEMP 98.5; O2SAT 97
[2017-01-08] MEDS: QUEtiapine FUMARATE 200 MG TAB PO SCH (20:13)
[2017-01-08] MEDS: REMOVE OLD NICOTINE PATCH T-DERMAL SCH (20:14)
[2017-01-09 06:13] VITALS: BP 146/83; PULSE 90; RESP 15; TEMP 97.6; O2SAT 98
[2017-01-09] MEDS: LORazepam 0.5 MG TAB PO SCH ×2 (08:47→21:05)
[2017-01-09] MEDS: SERTRALINE HCL 50 MG TAB PO SCH (08:47)
[2017-01-09] MEDS: PANTOPRAZOLE SOD 40 MG DELAYED RELEASE TAB PO SCH (08:48)
[2017-01-09] MEDS: NICOTINE 21 MG/24 HR PATCH T-DERMAL SCH (08:49)
[2017-01-09] MEDS: ACETAMINOPHEN 325 MG TAB PO PRN (09:03)
[2017-01-09] MEDS: risperiDONE ODT 2 MG TAB PO SCH ×2 (10:03→17:06)
--- NOTE | 2017-01-09 14:08 | HHI.PYPN ---
Subjective Remarks Pt seen and discussed with staff. Pt remains isolative to her room, but has been more interactive. no behavioral problems on unit. Cooperative with care. No medication side effects. No SI/HI. Review of Systems Psychiatric: COMPLAINS OF: Depression Objective Alert: Yes [place]: Person, Place Mood: Depressed Affect: Blunted Memory Intact: Comment (impaired) Hallucinations: Other (none) Delusions: No Delusion Type: Other (none) Suicidal: Ideation (denies) Homicidal: Ideation (denies) Insight/Judgement poor Vitals/IOs Vital Signs Date Time Temp Pulse Resp B/P Pulse Ox O2 Delivery O2 Flow Rate FiO2 01/09/17 06:13 97.6 90 15 146/83 98 Intake and Output 01/08/17 01/08/17 01/09/17 08:00 16:00 00:00 Intake Total 0 ml 960 ml 1080 ml Balance 0 ml 960 ml 1080 ml Assessment & Plan Problem List: (1) Schizophrenia, undifferentiated ICD Code: F20.3 Assessment & Plan continue current tx plan Estimated LOS: days Justification for Cont. Inpt. risk of decompensation Saray Rose MD Jan 09, 2017 14:08
[2017-01-09] MEDS: REMOVE OLD NICOTINE PATCH T-DERMAL SCH (21:00)
[2017-01-09 21:04] VITALS: BP 121/59; PULSE 89; TEMP 97.1; O2SAT 100
[2017-01-09] MEDS: QUEtiapine FUMARATE 200 MG TAB PO SCH (21:05)
[2017-01-10 05:11] VITALS: BP 143/75; PULSE 88; RESP 18; TEMP 97.2; O2SAT 100
[2017-01-10] MEDS: LORazepam 0.5 MG TAB PO SCH ×2 (08:48→20:52)
[2017-01-10] MEDS: PANTOPRAZOLE SOD 40 MG DELAYED RELEASE TAB PO SCH (08:48)
[2017-01-10] MEDS: SERTRALINE HCL 50 MG TAB PO SCH (08:48)
[2017-01-10] MEDS: NICOTINE 21 MG/24 HR PATCH T-DERMAL SCH (08:50)
[2017-01-10] MEDS: risperiDONE ODT 2 MG TAB PO SCH ×2 (08:55→17:07)
--- NOTE | 2017-01-10 15:42 | HHI.PYPN ---
Subjective Remarks Pt seen and discussed with staff. She has been compliant with medications. She continues to isolate to her room, only coming out for meals. She is resistant when MD encourages her to increase behavioral activation. No aggression or agitation. She has been refusing visitors because she is unwilling to leave room. She does engage more in interview with MD and does not exhibit selective mutism today. Objective Alert: Yes [place]: Person, Place Mood: Depressed Affect: Blunted Memory Intact: Comment (impaired) Hallucinations: Other (none) Delusions: No Delusion Type: Other (none) Suicidal: Ideation (denies) Homicidal: Ideation (denies) Insight/Judgement poor Vitals/IOs Vital Signs Date Time Temp Pulse Resp B/P Pulse Ox O2 Delivery O2 Flow Rate FiO2 01/10/17 05:11 97.2 88 18 143/75 100 Intake and Output 01/09/17 01/09/17 01/10/17 08:00 16:00 00:00 Intake Total 120 ml 600 ml 480 ml Balance 120 ml 600 ml 480 ml Assessment & Plan Problem List: (1) Schizophrenia, 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 Estimated LOS: days Justification for Cont. Inpt. risk of decompensation Saray Rose MD Jan 10, 2017 3:42 pm
[2017-01-10 19:21] VITALS: BP 122/84; PULSE 102; RESP 16; TEMP 97.6
[2017-01-10] MEDS: QUEtiapine FUMARATE 200 MG TAB PO SCH (20:52)
[2017-01-10] MEDS: REMOVE OLD NICOTINE PATCH T-DERMAL SCH (21:00)
[2017-01-11 06:10] VITALS: BP 116/70; PULSE 89; RESP 18; TEMP 97.2; O2SAT 98
[2017-01-11] MEDS: NICOTINE 21 MG/24 HR PATCH T-DERMAL SCH (09:00)
[2017-01-11] MEDS: PANTOPRAZOLE SOD 40 MG DELAYED RELEASE TAB PO SCH (09:29)
[2017-01-11] MEDS: SERTRALINE HCL 50 MG TAB PO SCH (09:30)
[2017-01-11] MEDS: LORazepam 0.5 MG TAB PO SCH ×2 (09:30→21:29)
[2017-01-11] MEDS: ACETAMINOPHEN 325 MG TAB PO PRN (09:33)
[2017-01-11] MEDS: risperiDONE ODT 2 MG TAB PO SCH ×2 (09:33→18:00)
--- NOTE | 2017-01-11 17:10 | HHI.PYPN ---
Subjective Remarks Patient discussed with treatment team, 7 unit. Patient continues to show resistance to and manipulation related to placement issues. She was given the 3 options of going with her sister, local placement in [facility], her returning to her apartment with home health care and her brother monitoring her. She continues to focus on her desire to remain staying on the 2500 unit.. Patient compliant medications Review of Systems Except as stated in HPI: all other systems reviewed are Neg Objective Alert: Yes [place]: Person, Place Mood: Depressed Affect: Blunted Memory Intact: Comment (impaired) Hallucinations: Other (none) Delusions: No Delusion Type: Other (none) Suicidal: Ideation (denies) Homicidal: Ideation (denies) Insight/Judgement Very poor Vitals/IOs Vital Signs Date Time Temp Pulse Resp B/P Pulse Ox O2 Delivery O2 Flow Rate FiO2 01/11/17 06:10 97.2 89 18 116/70 98 Intake and Output 01/10/17 01/10/17 01/11/17 08:00 16:00 00:00 Intake Total 600 ml 1320 ml 1200 ml Balance 600 ml 1320 ml 1200 ml Assessment & Plan Problem List: (1) Schizophrenia, undifferentiated ICD Code: F20.3 Assessment & Plan Estimated LOS: days patient remains somewhat manipulative along with her psychosis. She continues to at times appear to be responding to internal stimuli, compliant medications Justification for Cont. Inpt. At this time patient will decompensate if placed in a lower level of care Discharge Planning To be determined Sav Suh MD Jan 11, 2017 17:10
[2017-01-11] MEDS: REMOVE OLD NICOTINE PATCH T-DERMAL SCH (21:00)
[2017-01-11] MEDS: QUEtiapine FUMARATE 200 MG TAB PO SCH (21:29)
[2017-01-12 06:11] VITALS: BP 101/65; PULSE 122; PULSE 88; RESP 17; TEMP 97.5; O2SAT 98
[2017-01-12] MEDS: risperiDONE ODT 2 MG TAB PO SCH ×2 (08:49→18:34)
[2017-01-12] MEDS: SERTRALINE HCL 50 MG TAB PO SCH (08:50)
[2017-01-12] MEDS: LORazepam 0.5 MG TAB PO SCH ×2 (08:50→21:24)
[2017-01-12] MEDS: PANTOPRAZOLE SOD 40 MG DELAYED RELEASE TAB PO SCH (08:50)
[2017-01-12] MEDS: NICOTINE 21 MG/24 HR PATCH T-DERMAL SCH (08:50)
--- NOTE | 2017-01-12 14:24 | HHI.PYPN ---
Subjective Remarks Patient seen in her room with nurse Shanna, patient still showing some resistance to consider removing to [place] with her sister., Though she is somewhat more verbal today and calm with me, compliant medications. After speaking with patient I discussed this with counselor Delaney was talk to her sister in [place]. That sister is patient's guardian. The sister is planning on coming down here and taking the patient back with her to [place] where there is significant extended family. The patient would have wrong betterment of 4 bedroom home. And be around people care for her. We will emphasize this with the patient over the next few days Review of Systems Except as stated in HPI: all other systems reviewed are Neg Objective Alert: Yes [place]: Person, Place Mood: Depressed Affect: Blunted Memory Intact: Comment (impaired) Hallucinations: Other (none) Delusions: No Delusion Type: Other (none) Suicidal: Ideation (denies) Homicidal: Ideation (denies) Insight/Judgement Poor Vitals/IOs Vital Signs Date Time Temp Pulse Resp B/P Pulse Ox O2 Delivery O2 Flow Rate FiO2 01/12/17 06:11 97.5 88 17 101/65 98 Intake and Output 01/11/17 01/11/17 01/12/17 08:00 16:00 00:00 Intake Total 320 ml 960 ml 2250 ml Balance 320 ml 960 ml 2250 ml Assessment & Plan Problem List: (1) Schizophrenia, undifferentiated ICD Code: F20.3 Assessment & Plan Estimated LOS: days patient continues vigilant, perhaps mildly psychotic. Though the also appears to be some degree of manipulation related to her desire to remain on this unit. It appears also that the sister will be taking them or sooner role and placement with this patient being her back to [facility] Justification for Cont. Inpt. At this time patient will decompensate the placed in a lower level of care Discharge Planning To be determined Sav Suh MD Jan 12, 2017 14:24
[2017-01-12 18:07] VITALS: BP 100/70; PULSE 103; RESP 17; TEMP 97.7; O2SAT 97
[2017-01-12] MEDS: QUEtiapine FUMARATE 200 MG TAB PO SCH (21:23)
[2017-01-13 06:00] VITALS: BP 103/55; PULSE 86; RESP 18; TEMP 97.3; O2SAT 100
[2017-01-13] MEDS: PANTOPRAZOLE SOD 40 MG DELAYED RELEASE TAB PO SCH (09:00)
[2017-01-13] MEDS: SERTRALINE HCL 50 MG TAB PO SCH (09:39)
[2017-01-13] MEDS: LORazepam 0.5 MG TAB PO SCH ×2 (09:39→21:35)
[2017-01-13] MEDS: risperiDONE ODT 2 MG TAB PO SCH ×2 (09:40→17:08)
--- NOTE | 2017-01-13 14:50 | HHI.PYPN ---
Subjective Remarks Patient discussed with treatment team, chart review, patient seen in her room with counselor Delaney and nurse Lloyd. Patient initially calm speaking Alicia quiet term. However when we spoke of the fact that her sister, as her guardian, is planning on coming down here from [place] a pickup patient then returned to [place] with her patient stopped speaking with us. When asked by the counselor she is willing to do this patient per hands up and is somewhat accepting gesture. For now continue treatment will await further word from patient's sister. Patient does denies suicidality continues somewhat vague about voices Review of Systems Except as stated in HPI: all other systems reviewed are Neg Objective Alert: Yes [place]: Person, Place Mood: Depressed Affect: Blunted Memory Intact: Comment (impaired) Hallucinations: Other (none) Delusions: No Delusion Type: Other (none) Suicidal: Ideation (denies) Homicidal: Ideation (denies) Insight/Judgement Very poor Vitals/IOs Vital Signs Date Time Temp Pulse Resp B/P Pulse Ox O2 Delivery O2 Flow Rate FiO2 01/13/17 06:00 97.3 86 18 103/55 100 Intake and Output 01/12/17 01/12/17 01/13/17 08:00 16:00 00:00 Intake Total 840 ml 1515 ml Balance 840 ml 1515 ml Assessment & Plan Problem List: (1) Schizophrenia, undifferentiated ICD Code: F20.3 Assessment & Plan Estimated LOS: days patient is somewhat resistant to placement issues. Though she appears to be showing some movement towards accepting it and agreeing to it. Compliant medications. Justification for Cont. Inpt. At this time patient will decompensate if placed on the lower level of care Discharge Planning To be determined Sav Suh MD Jan 13, 2017 14:50
[2017-01-13 20:00] VITALS: BP 102/55; PULSE 91; RESP 18; TEMP 98; O2SAT 98
[2017-01-13] MEDS: QUEtiapine FUMARATE 200 MG TAB PO SCH (21:35)
[2017-01-14] MEDS: ACETAMINOPHEN 325 MG TAB PO PRN (05:40)
[2017-01-14 06:00] VITALS: BP 113/66; PULSE 79; RESP 17; TEMP 98.6; O2SAT 99
[2017-01-14] MEDS: PANTOPRAZOLE SOD 40 MG DELAYED RELEASE TAB PO SCH (09:00)
[2017-01-14] MEDS: SERTRALINE HCL 50 MG TAB PO SCH (09:23)
[2017-01-14] MEDS: LORazepam 0.5 MG TAB PO SCH ×2 (09:23→20:26)
[2017-01-14] MEDS: risperiDONE ODT 2 MG TAB PO SCH ×2 (09:31→17:23)
--- NOTE | 2017-01-14 09:35 | HHI.PYPN ---
Subjective Remarks Patient seen in her room with floor staff, chart review, patient not as verbal as yesterday. While she appears reluctant to discuss placement issues she appears to be thinking about it, not absolutely rejecting the possibility of moving with her sister at this time. Patient compliant medications. Continue somewhat vague about any persistent auditory hallucinations. For now continue treatment Review of Systems Except as stated in HPI: all other systems reviewed are Neg Objective Alert: Yes [place]: Person, Place Mood: Depressed Affect: Blunted Memory Intact: Comment (impaired) Hallucinations: Other (patient somewhat vague today about voices) Delusions: No Delusion Type: Other (none) Suicidal: Ideation (denies) Homicidal: Ideation (denies) Insight/Judgement Poor Vitals/IOs Vital Signs Date Time Temp Pulse Resp B/P Pulse Ox O2 Delivery O2 Flow Rate FiO2 01/14/17 06:00 98.6 79 17 113/66 99 Intake and Output 01/13/17 01/13/17 01/14/17 08:00 16:00 00:00 Intake Total 240 ml 1320 ml Balance 240 ml 1320 ml Assessment & Plan Problem List: (1) Schizophrenia, undifferentiated ICD Code: F20.3 Assessment & Plan Estimated LOS: days patient continues to isolate showing resistance to considering placement issues. Appears some vague auditory hallucinations today. Compliant medications. For now continue treatment Justification for Cont. Inpt. At this time patient will decompensate if placed in a lower level of care Discharge Planning To be determined Sav Suh MD Jan 14, 2017 09:35
[2017-01-14] MEDS: QUEtiapine FUMARATE 200 MG TAB PO SCH (20:25)
[2017-01-15 06:23] VITALS: BP 131/78; PULSE 76; RESP 16; TEMP 97.7; O2SAT 99
[2017-01-15] MEDS: risperiDONE ODT 2 MG TAB PO SCH ×2 (08:00→18:00)
[2017-01-15] MEDS: LORazepam 0.5 MG TAB PO SCH ×2 (09:00→20:52)
[2017-01-15] MEDS: SERTRALINE HCL 50 MG TAB PO SCH (09:00)
[2017-01-15] MEDS: PANTOPRAZOLE SOD 40 MG DELAYED RELEASE TAB PO SCH (09:00)
--- NOTE | 2017-01-15 16:43 | HHI.PYPN ---
Subjective Remarks Patient seen in her room with nurse Eric, patient somewhat more verbal today. It appears she is starting to acknowledge the inevitability of her going with her sister to [place]. For now continue treatment no change Review of Systems Except as stated in HPI: all other systems reviewed are Neg Objective Alert: Yes [place]: Person, Place Mood: Depressed Affect: Blunted Memory Intact: Comment (impaired) Hallucinations: Other (patient somewhat vague today about voices) Delusions: No Delusion Type: Other (none) Suicidal: Ideation (denies) Homicidal: Ideation (denies) Insight/Judgment Poor Vitals/IOs Vital Signs Date Time Temp Pulse Resp B/P Pulse Ox O2 Delivery O2 Flow Rate FiO2 01/15/17 06:23 97.7 76 16 131/78 99 Intake and Output 01/14/17 01/14/17 01/15/17 08:00 16:00 00:00 Intake Total 540 ml Balance 540 ml Assessment & Plan Problem List: (1) Schizophrenia, undifferentiated ICD Code: F20.3 Assessment & Plan Estimated LOS: days patient continues to isolate somewhat vigilant. At times appears responding vaguely to auditory hallucinations. Is starting to acknowledge the discharge plan Justification for Cont. Inpt. At this time patient will decompensate placed in the lower level of care Discharge Planning To be determined Sav Suh MD Jan 15, 2017 16:43
[2017-01-15 19:21] VITALS: BP 128/77; PULSE 81; RESP 17; TEMP 97.5; O2SAT 100
[2017-01-15] MEDS: QUEtiapine FUMARATE 200 MG TAB PO SCH (20:52)
[2017-01-16 06:20] VITALS: BP 92/68; PULSE 90; RESP 18; TEMP 98; O2SAT 98
[2017-01-16] MEDS: risperiDONE ODT 2 MG TAB PO SCH ×2 (10:09→17:04)
[2017-01-16] MEDS: SERTRALINE HCL 50 MG TAB PO SCH (10:10)
[2017-01-16] MEDS: LORazepam 0.5 MG TAB PO SCH ×2 (10:10→21:00)
[2017-01-16] MEDS: PANTOPRAZOLE SOD 40 MG DELAYED RELEASE TAB PO SCH (10:10)
--- NOTE | 2017-01-16 12:47 | HHI.PYPN ---
Subjective Remarks Patient was seen and case discussed with nursing. Patient is significantly more talkative and interactive compared to her visit 2 weeks ago. She speaks in complete sentences and is answering questions. She is alert and oriented 2. She describes difficulty with her memory. She does not remember if she has any kids or siblings. Does not remember the name of her parents. She still remained seclusive. Per nursing she is paranoid and questioning her medicines. Denies depressed mood. Denies hallucinations Objective Alert: Yes [place]: Person, Place Mood: Calm Affect: Blunted Memory Intact: Comment (impaired) Hallucinations: Other (denies today) Delusions: No Delusion Type: Other (none) Suicidal: Ideation (denies) Homicidal: Ideation (denies) Insight/Judgment Poor Vitals/IOs Vital Signs Date Time Temp Pulse Resp B/P Pulse Ox O2 Delivery O2 Flow Rate FiO2 01/16/17 06:20 98.0 90 18 92/68 98 Intake and Output 01/15/17 01/15/17 01/16/17 08:00 16:00 00:00 Intake Total 120 ml 600 ml 1080 ml Balance 120 ml 600 ml 1080 ml Assessment & Plan Problem List: (1) Schizophrenia, 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 Inpt. Patient will decompensate in a less restrictive setting Fran Cabral DO Jan 16, 2017 12:47
[2017-01-16 18:00] VITALS: BP 119/68; PULSE 95; TEMP 97.2; O2SAT 100
[2017-01-16] MEDS: QUEtiapine FUMARATE 200 MG TAB PO SCH (21:00)
[2017-01-17] MEDS: ACETAMINOPHEN 325 MG TAB PO PRN (01:18)
[2017-01-17 06:29] VITALS: BP 92/53; PULSE 82; RESP 16; TEMP 97.1
[2017-01-17 09:58] VITALS: BP 101/58; PULSE 85
[2017-01-17] MEDS: risperiDONE ODT 2 MG TAB PO SCH ×2 (10:00→17:45)
[2017-01-17] MEDS: LORazepam 0.5 MG TAB PO SCH ×2 (10:00→21:00)
[2017-01-17] MEDS: SERTRALINE HCL 50 MG TAB PO SCH (10:00)
[2017-01-17] MEDS: PANTOPRAZOLE SOD 40 MG DELAYED RELEASE TAB PO SCH (10:00)
--- NOTE | 2017-01-17 15:09 | HHI.PYPN ---
Subjective Remarks Patient was seen and case discussed with nursing. Patient remains interactive and able to answer most questions appropriately during the interview. There is continued memory impairment patient unsure where she was born, or she grew up, her parents names or information concerning family. Does not know today's date or the president. He is eating well. Denies suicidal ideation intent or plan Objective Alert: Yes [place]: Person, Place Mood: Calm Affect: Restricted Memory Intact: Comment (impaired) Hallucinations: Other (denies today) Delusions: No Delusion Type: Other (none) Suicidal: Ideation (denies) Homicidal: Ideation (denies) Insight/Judgment poor Vitals/IOs Vital Signs Date Time Temp Pulse Resp B/P Pulse Ox O2 Delivery O2 Flow Rate FiO2 01/17/17 09:58 85 101/58 01/17/17 06:29 97.1 16 01/16/17 18:00 100 Intake and Output 01/16/17 01/16/17 01/17/17 08:00 16:00 00:00 Intake Total 1200 ml 550 ml Balance 1200 ml 550 ml Assessment & Plan Problem List: (1) Schizophrenia, 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 Inpt. Patient will decompensate in a less restrictive setting Fran Cabral DO Jan 17, 2017 15:09
[2017-01-17 20:34] VITALS: BP 126/79; PULSE 80; RESP 18; TEMP 98.2; O2SAT 100
[2017-01-17] MEDS: QUEtiapine FUMARATE 200 MG TAB PO SCH (21:00)
[2017-01-18 06:43] VITALS: BP 94/59; PULSE 87; RESP 17; TEMP 97.7; O2SAT 94
[2017-01-18] MEDS: LORazepam 0.5 MG TAB PO SCH ×2 (08:29→20:54)
[2017-01-18] MEDS: PANTOPRAZOLE SOD 40 MG DELAYED RELEASE TAB PO SCH (09:00)
[2017-01-18] MEDS: SERTRALINE HCL 50 MG TAB PO SCH (09:25)
[2017-01-18] MEDS: risperiDONE ODT 2 MG TAB PO SCH ×2 (09:26→17:24)
--- NOTE | 2017-01-18 13:55 | HHI.PYPN ---
Subjective Remarks Patient discussed with treatment team, chart review, patient seen on unit. It appears counselor has talked with patient's sister who plans on relocating patient to [place] with her. However sister states that may be some delays in her ability to do this, saying she may need to do this on a Wednesday. Will have counselor call her to verify timetable when I discussed this with patient she became selectively mute refusing to speak with me or make eye contact Review of Systems Except as stated in HPI: all other systems reviewed are Neg Objective Alert: Yes [place]: Person, Place Mood: Calm Affect: Restricted Memory Intact: Comment (impaired) Hallucinations: Other (denies today) Delusions: No Delusion Type: Other (none) Suicidal: Ideation (denies) Homicidal: Ideation (denies) Insight/Judgment Very poor Vitals/IOs Vital Signs Date Time Temp Pulse Resp B/P Pulse Ox O2 Delivery O2 Flow Rate FiO2 01/18/17 06:43 97.7 87 17 94/59 94 Intake and Output 01/17/17 01/17/17 01/18/17 08:00 16:00 00:00 Intake Total 0 ml 720 ml 480 ml Balance 0 ml 720 ml 480 ml Assessment & Plan Problem List: (1) Schizophrenia, undifferentiated ICD Code: F20.3 Assessment & Plan Estimated LOS: days patient remains somewhat psychotic, isolating, though also with a somewhat manipulative attitude. Though she is reluctantly agreeing to go with her sister. Justification for Cont. Inpt. At this time patient will decompensate if placed in a lower level of care Discharge Planning To be determined Sav Suh MD Jan 18, 2017 13:55
[2017-01-18 19:00] VITALS: BP 135/66; PULSE 92; RESP 18; TEMP 97.2
[2017-01-18] MEDS: QUEtiapine FUMARATE 200 MG TAB PO SCH (20:54)
[2017-01-19 06:00] VITALS: BP 104/60; PULSE 85; RESP 18; TEMP 97.8; O2SAT 95
[2017-01-19] MEDS: LORazepam 0.5 MG TAB PO SCH ×2 (08:49→21:48)
[2017-01-19] MEDS: PANTOPRAZOLE SOD 40 MG DELAYED RELEASE TAB PO SCH (08:49)
[2017-01-19] MEDS: SERTRALINE HCL 50 MG TAB PO SCH (08:49)
[2017-01-19] MEDS: risperiDONE ODT 2 MG TAB PO SCH ×2 (08:50→18:00)
--- NOTE | 2017-01-19 14:12 | HHI.PYPN ---
Subjective Remarks Patient seen in her room with nurse Eric, in bed, patient continues to isolate though at times is up with a walker and into the day room. She continues somewhat evasive about placement issues though it appears she continues to be willing to go to her sister's in [place]. For now continue treatment Review of Systems Except as stated in HPI: all other systems reviewed are Neg Objective Alert: Yes [place]: Person, Place Mood: Calm Affect: Restricted Memory Intact: Comment (impaired) Hallucinations: Other (denies today) Delusions: No Delusion Type: Other (none) Suicidal: Ideation (denies) Homicidal: Ideation (denies) Insight/Judgment Poor Vitals/IOs Vital Signs Date Time Temp Pulse Resp B/P Pulse Ox O2 Delivery O2 Flow Rate FiO2 01/19/17 06:00 97.8 85 18 104/60 95 Intake and Output 01/18/17 01/18/17 01/19/17 08:00 16:00 00:00 Intake Total 720 ml Balance 720 ml Assessment & Plan Problem List: (1) Schizophrenia, undifferentiated ICD Code: F20.3 Assessment & Plan Estimated LOS: days patient continues somewhat psychotic vigilant, compliant medications. Continue to await word from her sister Justification for Cont. Inpt. At this time patient will decompensate if placed in a lower level of care Discharge Planning To be determined Sav Suh MD Jan 19, 2017 14:12
[2017-01-19 19:00] VITALS: BP 107/69; PULSE 103; RESP 18; TEMP 97.9
[2017-01-19] MEDS: QUEtiapine FUMARATE 200 MG TAB PO SCH (21:48)
[2017-01-20 05:25] VITALS: BP 96/55; PULSE 85; RESP 19; TEMP 97.8
[2017-01-20] MEDS: PANTOPRAZOLE SOD 40 MG DELAYED RELEASE TAB PO SCH (09:54)
[2017-01-20] MEDS: LORazepam 0.5 MG TAB PO SCH ×2 (09:54→20:47)
[2017-01-20] MEDS: SERTRALINE HCL 50 MG TAB PO SCH (09:54)
[2017-01-20] MEDS: ACETAMINOPHEN 325 MG TAB PO PRN (10:03)
[2017-01-20] MEDS: risperiDONE ODT 2 MG TAB PO SCH ×2 (10:04→18:00)
--- NOTE | 2017-01-20 14:25 | HHI.PYPN ---
Subjective Remarks Patient seen in her room with floor staff, patient laying in bed. Remain selectively mute with me. Though when I discuss the plans for patient returning to [place] with her sister she appears to be acknowledging the inevitablity ability of this. Patient compliant medications. No other behavioral issues noted Review of Systems Except as stated in HPI: all other systems reviewed are Neg Objective Alert: Yes [place]: Person, Place Mood: Calm Affect: Restricted Memory Intact: Comment (impaired) Hallucinations: Other (denies today) Delusions: No Delusion Type: Other (none) Suicidal: Ideation (denies) Homicidal: Ideation (denies) Insight/Judgment Very poor Vitals/IOs Vital Signs Date Time Temp Pulse Resp B/P Pulse Ox O2 Delivery O2 Flow Rate FiO2 01/20/17 05:25 97.8 85 19 96/55 01/19/17 06:00 95 Intake and Output 01/19/17 01/19/17 01/20/17 08:00 16:00 00:00 Intake Total 240 ml 240 ml Balance 240 ml 240 ml Assessment & Plan Problem List: (1) Schizophrenia, undifferentiated ICD Code: F20.3 Assessment & Plan Estimated LOS: days patient continues to isolate with no insight into her disease. And times appears to be responding to internal stimuli for now continue treatment Justification for Cont. Inpt. At this time patient will decompensate if placed in a lower level of care Discharge Planning To be determined Sav Suh MD Jan 20, 2017 14:25
[2017-01-20 18:00] VITALS: BP 112/55; PULSE 98; RESP 18; TEMP 96.9; O2SAT 99
[2017-01-20] MEDS: QUEtiapine FUMARATE 200 MG TAB PO SCH (20:47)
[2017-01-21 05:59] VITALS: BP 118/59; PULSE 63; RESP 18; TEMP 98.1
[2017-01-21] MEDS: risperiDONE ODT 2 MG TAB PO SCH ×2 (08:00→17:36)
[2017-01-21] MEDS: PANTOPRAZOLE SOD 40 MG DELAYED RELEASE TAB PO SCH (08:49)
[2017-01-21] MEDS: LORazepam 0.5 MG TAB PO SCH ×2 (08:50→21:29)
[2017-01-21] MEDS: SERTRALINE HCL 50 MG TAB PO SCH (09:00)
--- NOTE | 2017-01-21 11:30 | HHI.PYPN ---
Subjective Remarks Patient seen in her room. Is more alert and verbal with me today, patient seen with nurse Franki, chart reviewed. Patient no complaints at this time however when we discussed placement issues and the plan for her to return to [place] with her sister patient became somewhat less verbal withdrawing somewhat. Patient compliant medications. No behavioral issues noted Review of Systems Except as stated in HPI: all other systems reviewed are Neg Objective Alert: Yes [place]: Person, Place Mood: Calm Affect: Restricted Memory Intact: Comment (impaired) Hallucinations: Other (denies today) Delusions: No Delusion Type: Other (none) Suicidal: Ideation (denies) Homicidal: Ideation (denies) Insight/Judgment Very poor Vitals/IOs Vital Signs Date Time Temp Pulse Resp B/P Pulse Ox O2 Delivery O2 Flow Rate FiO2 01/21/17 05:59 98.1 63 18 118/59 01/20/17 18:00 99 Intake and Output 01/20/17 01/20/17 01/21/17 08:00 16:00 00:00 Intake Total 0 ml 0 ml 480 ml Output Total 1 ml Balance 0 ml 0 ml 479 ml Assessment & Plan Problem List: (1) Schizophrenia, undifferentiated ICD Code: F20.3 Assessment & Plan Estimated LOS: days patient continues to isolate, is vigilant, though no behavioral problems. We continue to reinforce the plan of discharge to her sister for transport to [place] to be near her family Justification for Cont. Inpt. At this time patient will decompensate if placed in the lower level of care Discharge Planning To be determined Sav Suh MD Jan 21, 2017 11:30
[2017-01-21 19:18] VITALS: BP 111/71; PULSE 93; RESP 18; TEMP 98.8
[2017-01-21] MEDS: QUEtiapine FUMARATE 200 MG TAB PO SCH (21:29)
[2017-01-22 06:08] VITALS: BP 90/53; PULSE 91; RESP 16; TEMP 98.3; O2SAT 98
[2017-01-22] MEDS: ACETAMINOPHEN 325 MG TAB PO PRN (06:43)
[2017-01-22] MEDS: SERTRALINE HCL 50 MG TAB PO SCH (09:00)
[2017-01-22] MEDS: PANTOPRAZOLE SOD 40 MG DELAYED RELEASE TAB PO SCH (09:12)
[2017-01-22] MEDS: LORazepam 0.5 MG TAB PO SCH ×2 (09:12→22:29)
[2017-01-22] MEDS: risperiDONE ODT 2 MG TAB PO SCH ×2 (09:13→18:15)
--- NOTE | 2017-01-22 09:41 | HHI.PYPN ---
Subjective Remarks More verbal in general but continues to isolate himself and has little interest in daily activities. [place] continues to be the same in that patient to return to [place] with her sister. Patient does not appear to be either happy or sad about this move. Review of Systems ROS Limitations: Clinical Condition Objective Alert: Yes [place]: Person, Place Mood: Calm Affect: Restricted Memory Intact: Comment (impaired) Hallucinations: Other (denies today) Delusions: No Delusion Type: Other (none) Suicidal: Ideation (denies) Homicidal: Ideation (denies) Insight/Judgment Impaired Vitals/IOs Vital Signs Date Time Temp Pulse Resp B/P Pulse Ox O2 Delivery O2 Flow Rate FiO2 01/22/17 06:08 98.3 91 16 90/53 98 Intake and Output 01/21/17 01/21/17 01/22/17 08:00 16:00 00:00 Intake Total 780 ml Balance 780 ml Assessment & Plan Problem List: (1) Schizophrenia, undifferentiated ICD Code: F20.3 Assessment & Plan Estimated LOS: 7 days patient continues to be withdrawn with flat affect, little motivation and little interest in caring for herself. She is not a behavior problem at this time but medications work to only a limited degree. When patient improved sufficiently, plan for her to return to [place] with her sister. Justification for Cont. Inpt. Unable to care for self. Tesfaye Perez MD Jan 22, 2017 09:41
[2017-01-22 20:00] VITALS: BP 137/76; PULSE 96; RESP 18; TEMP 96.6; O2SAT 99
[2017-01-22] MEDS: QUEtiapine FUMARATE 200 MG TAB PO SCH (22:29)
[2017-01-23] MEDS: SERTRALINE HCL 50 MG TAB PO SCH (09:00)
[2017-01-23] MEDS: PANTOPRAZOLE SOD 40 MG DELAYED RELEASE TAB PO SCH (09:32)
[2017-01-23] MEDS: LORazepam 0.5 MG TAB PO SCH ×2 (09:32→22:20)
[2017-01-23] MEDS: risperiDONE ODT 2 MG TAB PO SCH ×2 (09:50→17:33)
--- NOTE | 2017-01-23 17:55 | HHI.PYPN ---
Subjective Remarks Pt seen and discussed with staff. She remains isolative to her room and resistant to hygiene activities. No aggression or agitation. She is more talkative. No SI/HI. NO medication side effects. Objective Alert: Yes [place]: Person, Place Mood: Calm Affect: Restricted Memory Intact: Comment (impaired) Hallucinations: Other (denies today) Delusions: No Delusion Type: Other (none) Suicidal: Ideation (denies) Homicidal: Ideation (denies) Insight/Judgment poor Vitals/IOs Vital Signs Date Time Temp Pulse Resp B/P Pulse Ox O2 Delivery O2 Flow Rate FiO2 01/22/17 20:00 96.6 96 18 137/76 99 Intake and Output 01/22/17 01/22/17 01/23/17 08:00 16:00 00:00 Intake Total 240 ml 1200 ml 960 ml Balance 240 ml 1200 ml 960 ml Assessment & Plan Problem List: (1) Schizophrenia, 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 Estimated LOS: days Justification for Cont. Inpt. risk of decompensation Saray Rose MD Jan 23, 2017 17:55
[2017-01-23 20:00] VITALS: BP 110/64; PULSE 93; TEMP 97.4; O2SAT 100
[2017-01-23] MEDS: QUEtiapine FUMARATE 200 MG TAB PO SCH (22:20)
[2017-01-24 05:32] VITALS: BP 106/56; PULSE 85; RESP 18; TEMP 98
[2017-01-24] MEDS: SERTRALINE HCL 50 MG TAB PO SCH (09:00)
[2017-01-24] MEDS: LORazepam 0.5 MG TAB PO SCH ×2 (09:40→21:52)
[2017-01-24] MEDS: PANTOPRAZOLE SOD 40 MG DELAYED RELEASE TAB PO SCH (09:40)
[2017-01-24] MEDS: risperiDONE ODT 2 MG TAB PO SCH ×2 (09:42→18:00)
[2017-01-24 18:00] VITALS: BP 110/66; PULSE 88; RESP 18; TEMP 98.2; O2SAT 96
--- NOTE | 2017-01-24 19:36 | HHI.PYPN ---
Subjective Remarks Pt seen and discussed with staff. Pt remains seclusive to room but has been more compliant with hygiene activities. No agitation/aggression. She is compliant with medication and denies side effects. She c/o of constipation and no BM x 3 days. Objective Alert: Yes [place]: Person, Place, Date ("east") Mood: Calm Affect: Restricted Memory Intact: Comment (impaired) Hallucinations: Other (denies today) Delusions: No Delusion Type: Other (none) Suicidal: Ideation (denies) Homicidal: Ideation (denies) Insight/Judgment poor Vitals/IOs Vital Signs Date Time Temp Pulse Resp B/P Pulse Ox O2 Delivery O2 Flow Rate FiO2 01/24/17 18:00 98.2 88 18 110/66 96 Intake and Output 01/23/17 01/23/17 01/24/17 08:00 16:00 00:00 Intake Total 360 ml 240 ml 180 ml Balance 360 ml 240 ml 180 ml Assessment & Plan Problem List: (1) Schizophrenia, 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 Miralax x1 for constipation. Estimated LOS: days Justification for Cont. Inpt. risk of decompensation Saray Rose MD Jan 24, 2017 19:36
[2017-01-24] MEDS: QUEtiapine FUMARATE 200 MG TAB PO SCH (21:52)
[2017-01-25 05:30] VITALS: BP 96/54; PULSE 81; RESP 18; TEMP 97.6
[2017-01-25] MEDS: risperiDONE ODT 2 MG TAB PO SCH ×2 (08:00→18:02)
[2017-01-25] MEDS: LORazepam 0.5 MG TAB PO SCH ×2 (09:00→20:46)
[2017-01-25] MEDS: PANTOPRAZOLE SOD 40 MG DELAYED RELEASE TAB PO SCH (09:00)
[2017-01-25] MEDS: SERTRALINE HCL 50 MG TAB PO SCH (09:00)
--- NOTE | 2017-01-25 16:29 | HHI.PYPN ---
Subjective Remarks Patient discussed with treatment team, patient seen on unit before staff. Patient is to isolate though somewhat more verbal today. Appears to be accepting more the discharge plan of her returning to [place] with her sister. We are awaiting word from patient's sister as to finalize the discharge date Review of Systems Except as stated in HPI: all other systems reviewed are Neg Objective Alert: Yes [place]: Person, Place, Date ("easter") Mood: Calm Affect: Restricted Memory Intact: Comment (impaired) Hallucinations: Other (denies today) Delusions: No Delusion Type: Other (none) Suicidal: Ideation (denies) Homicidal: Ideation (denies) Insight/Judgment Very poor Vitals/IOs Vital Signs Date Time Temp Pulse Resp B/P Pulse Ox O2 Delivery O2 Flow Rate FiO2 01/25/17 05:30 97.6 81 18 96/54 01/24/17 18:00 96 Intake and Output 01/24/17 01/24/17 01/25/17 08:00 16:00 00:00 Intake Total 720 ml 480 ml Balance 720 ml 480 ml Assessment & Plan Problem List: (1) Schizophrenia, undifferentiated ICD Code: F20.3 Assessment & Plan Estimated LOS: days patient continues to isolate, at times appears to be responding to internal stimuli. For now continue treatment Justification for Cont. Inpt. At the present time the patient decompensate if placed in the lower level of care Discharge Planning To be determined Sav Suh MD Jan 25, 2017 16:29
[2017-01-25 18:00] VITALS: BP_SYST 113; BP_SYST 95; BP_DIAS 56; BP_DIAS 66; PULSE 79; RESP 18; TEMP 98; TEMP 98.1; O2SAT 96; O2SAT 97
[2017-01-25] MEDS: QUEtiapine FUMARATE 200 MG TAB PO SCH (20:46)
[2017-01-26 05:29] VITALS: BP 104/55; PULSE 78; RESP 18; TEMP 97.6; O2SAT 98
[2017-01-26] MEDS: PANTOPRAZOLE SOD 40 MG DELAYED RELEASE TAB PO SCH (08:40)
[2017-01-26] MEDS: LORazepam 0.5 MG TAB PO SCH ×2 (08:40→20:46)
[2017-01-26] MEDS: risperiDONE ODT 2 MG TAB PO SCH ×2 (08:43→17:59)
[2017-01-26] MEDS: SERTRALINE HCL 50 MG TAB PO SCH (08:46)
--- NOTE | 2017-01-26 14:19 | HHI.PYPN ---
Subjective Remarks Patient seen in her room with nurse Franki, patient laying in bed. Patient giving some vague somatic problems though nothing that is definitive or impressive. When discussing discharge plans. That her sister is coming in the near future to pick her up and return to [place] with her she became quiet though did not refuse to go. Patient compliant medications. For now continue treatment Review of Systems Except as stated in HPI: all other systems reviewed are Neg Objective Alert: Yes [place]: Person, Place, Date ("east") Mood: Calm Affect: Restricted Memory Intact: Comment (impaired) Hallucinations: Other (denies today) Delusions: No Delusion Type: Other (none) Suicidal: Ideation (denies) Homicidal: Ideation (denies) Insight/Judgment Poor Vitals/IOs Vital Signs Date Time Temp Pulse Resp B/P Pulse Ox O2 Delivery O2 Flow Rate FiO2 01/26/17 05:29 97.6 78 18 104/55 98 Intake and Output 01/25/17 01/25/17 01/26/17 08:00 16:00 00:00 Intake Total 0 ml 120 ml 1440 ml Balance 0 ml 120 ml 1440 ml Assessment & Plan Problem List: (1) Schizophrenia, undifferentiated ICD Code: F20.3 Assessment & Plan Estimated LOS: days patient continues somewhat vigilant and paranoid, though no behavioral problems. Compliant medications Justification for Cont. Inpt. At this time patient will decompensate if place to the lower level of care Discharge Planning To be determined Sav Suh MD Jan 26, 2017 14:19
[2017-01-26] MEDS: QUEtiapine FUMARATE 200 MG TAB PO SCH (20:45)
[2017-01-27 05:09] VITALS: BP 114/74; PULSE 99; RESP 18; TEMP 97.5
[2017-01-27] MEDS: risperiDONE ODT 2 MG TAB PO SCH ×2 (08:00→18:18)
[2017-01-27] MEDS: LORazepam 0.5 MG TAB PO SCH ×2 (09:00→20:42)
[2017-01-27] MEDS: PANTOPRAZOLE SOD 40 MG DELAYED RELEASE TAB PO SCH (09:00)
[2017-01-27] MEDS: SERTRALINE HCL 50 MG TAB PO SCH (09:00)
--- NOTE | 2017-01-27 13:05 | HHI.PYPN ---
Subjective Remarks Patient seen in her room with nurse Hieu, chart review, patient compliant medications. Though continues to isolate the times appears free talking to herself. There is been communication with the patient's sister about possible date for patient to be transported to [place] sister is requesting it before we need to discuss this further with her Review of Systems Except as stated in HPI: all other systems reviewed are Neg Objective Alert: Yes [place]: Person, Place, Date ("easter") Mood: Calm Affect: Restricted Memory Intact: Comment (impaired) Hallucinations: Other (denies today) Delusions: No Delusion Type: Other (none) Suicidal: Ideation (denies) Homicidal: Ideation (denies) Insight/Judgment Poor Vitals/IOs Vital Signs Date Time Temp Pulse Resp B/P Pulse Ox O2 Delivery O2 Flow Rate FiO2 01/27/17 05:09 97.5 99 18 114/74 01/26/17 05:29 98 Intake and Output 01/26/17 01/26/17 01/27/17 08:00 16:00 00:00 Intake Total 240 ml 700 ml Output Total 2 ml Balance 238 ml 700 ml Assessment & Plan Problem List: (1) Schizophrenia, undifferentiated ICD Code: F20.3 Assessment & Plan Estimated LOS: days patient continues to isolate somewhat psychotic though calm with me today she was still minimally verbal. We again reinforced the plan for discharge for sister with transported to [place] Justification for Cont. Inpt. At this time patient will decompensate if placed in a lower level of care Discharge Planning To be determined Sav Suh MD Jan 27, 2017 13:05
[2017-01-27 18:00] VITALS: BP 115/58; PULSE 87; RESP 16; TEMP 97.5; O2SAT 97
[2017-01-27] MEDS: QUEtiapine FUMARATE 200 MG TAB PO SCH (20:42)
[2017-01-28 05:41] VITALS: BP 87/56; PULSE 69; RESP 16; TEMP 97.3; O2SAT 95
[2017-01-28] MEDS: SERTRALINE HCL 50 MG TAB PO SCH (09:00)
[2017-01-28] MEDS: PANTOPRAZOLE SOD 40 MG DELAYED RELEASE TAB PO SCH (09:07)
[2017-01-28] MEDS: LORazepam 0.5 MG TAB PO SCH ×2 (09:07→20:52)
[2017-01-28] MEDS: risperiDONE ODT 2 MG TAB PO SCH ×2 (09:09→18:00)
--- NOTE | 2017-01-28 11:34 | HHI.PYPN ---
Subjective Remarks Patient seen in her room with nurse Eric, patient in bed with covers to her chin. Chart reviewed. Patient compliant medications. Patient states she is happy that she had a shower this morning and she feels better. While she continues to isolate she does get up for meals and ambulates with walker to the dining room. When discussing discharge plans with her returning to [place] with her sister remains quite quiet. Otherwise no behavioral issues Review of Systems Except as stated in HPI: all other systems reviewed are Neg Objective Alert: Yes [place]: Person, Place, Date ("easter") Mood: Calm Affect: Restricted Memory Intact: Comment (impaired) Hallucinations: Other (denies today) Delusions: No Delusion Type: Other (none) Suicidal: Ideation (denies) Homicidal: Ideation (denies) Insight/Judgment Poor Vitals/IOs Vital Signs Date Time Temp Pulse Resp B/P Pulse Ox O2 Delivery O2 Flow Rate FiO2 01/28/17 05:41 97.3 69 16 87/56 95 Intake and Output 01/27/17 01/27/17 01/28/17 08:00 16:00 00:00 Intake Total 240 ml 600 ml Balance 240 ml 600 ml Assessment & Plan Problem List: (1) Schizophrenia, undifferentiated ICD Code: F20.3 Assessment & Plan Estimated LOS: days patient continues to isolate, at times some poor hygiene but this showered today. Continue to await final information from patient's sister concerning discharge and transportation to [place] Justification for Cont. Inpt. At this time patient will decompensate into place to the lower level of care Discharge Planning To be determined Sav Suh MD Jan 28, 2017 11:34
[2017-01-28 19:14] VITALS: BP 96/64; PULSE 90; RESP 16; TEMP 97.6; O2SAT 95
[2017-01-28] MEDS: QUEtiapine FUMARATE 200 MG TAB PO SCH (20:52)
[2017-01-29 06:20] VITALS: BP 127/54; PULSE 92; RESP 16; TEMP 97.6; O2SAT 95
--- NOTE | 2017-01-29 08:17 | HHI.PYPN ---
Subjective Remarks Patient seen in day room with nurse Eric. Patient calm pleasant with me somewhat more verbally interactive. It appears patient's sister will be coming to this area about 02/06 to take patient with her back to [place]. We continue to reinforce this with the patient she appears to be coming to except it Review of Systems Except as stated in HPI: all other systems reviewed are Neg Objective Alert: Yes [place]: Person, Place, Date ("easter") Mood: Calm Affect: Restricted Memory Intact: Comment (impaired) Hallucinations: Other (denies today) Delusions: No Delusion Type: Other (none) Suicidal: Ideation (denies) Homicidal: Ideation (denies) Insight/Judgment Poor Vitals/IOs Vital Signs Date Time Temp Pulse Resp B/P Pulse Ox O2 Delivery O2 Flow Rate FiO2 01/29/17 06:20 97.6 92 16 127/54 95 Intake and Output 01/28/17 01/28/17 01/29/17 08:00 16:00 00:00 Intake Total 240 ml 720 ml Balance 240 ml 720 ml Assessment & Plan Problem List: (1) Schizophrenia, undifferentiated ICD Code: F20.3 Assessment & Plan Estimated LOS: days patient somewhat calmer appears to be processing the placement issues that it bothered her. At times she still appears to be responding to internal stimuli. For now continue treatment Justification for Cont. Inpt. At this time patient will decompensate if placed in the lower level of care Discharge Planning To be determined Sav Suh MD Jan 29, 2017 08:17
[2017-01-29] MEDS: LORazepam 0.5 MG TAB PO SCH ×2 (08:59→22:06)
[2017-01-29] MEDS: PANTOPRAZOLE SOD 40 MG DELAYED RELEASE TAB PO SCH (08:59)
[2017-01-29] MEDS: SERTRALINE HCL 50 MG TAB PO SCH (08:59)
[2017-01-29] MEDS: risperiDONE ODT 2 MG TAB PO SCH ×2 (09:07→18:00)
[2017-01-29 18:37] VITALS: BP 125/83; PULSE 100; RESP 16; TEMP 96.5; O2SAT 99
[2017-01-29] MEDS: QUEtiapine FUMARATE 200 MG TAB PO SCH (22:06)
[2017-01-30 06:18] VITALS: BP 128/60; PULSE 77; RESP 18; TEMP 98; O2SAT 97
[2017-01-30 07:00] VITALS: BP 128/60; PULSE 77; RESP 18; TEMP 98; O2SAT 98
[2017-01-30] MEDS: risperiDONE ODT 2 MG TAB PO SCH ×2 (08:00→16:57)
[2017-01-30] MEDS: PANTOPRAZOLE SOD 40 MG DELAYED RELEASE TAB PO SCH (09:19)
[2017-01-30] MEDS: SERTRALINE HCL 50 MG TAB PO SCH (09:19)
[2017-01-30] MEDS: LORazepam 0.5 MG TAB PO SCH ×2 (09:19→21:31)
--- NOTE | 2017-01-30 11:53 | HHI.PYPN ---
Subjective Remarks Patient was seen and case discussed with nursing. Per nursing patient has been seclusive to room. She remains with memory impairment throughout the interview. He is alert and oriented 2. Had an improvement in ADLs. Describes her mood today is "a little anxious." Objective Alert: Yes [place]: Person, Place Mood: Calm Affect: Blunted Memory Intact: Comment (impaired) Hallucinations: Other (denies today) Delusions: No Delusion Type: Other (none) Suicidal: Ideation (denies) Homicidal: Ideation (denies) Insight/Judgment Poor Vitals/IOs Vital Signs Date Time Temp Pulse Resp B/P Pulse Ox O2 Delivery O2 Flow Rate FiO2 01/30/17 07:00 98.0 77 18 128/60 98 Intake and Output 01/29/17 01/29/17 01/30/17 08:00 16:00 00:00 Intake Total 480 ml 1200 ml 480 ml Balance 480 ml 1200 ml 480 ml Assessment & Plan Problem List: (1) Schizophrenia, 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 Inpt. Patient will decompensate in a less restrictive setting Fran Cabral DO Jan 30, 2017 11:53
[2017-01-30 15:41] VITALS: BP 107/74; PULSE 87; RESP 20; TEMP 98.4; O2SAT 99
[2017-01-30] MEDS: QUEtiapine FUMARATE 200 MG TAB PO SCH (21:31)
[2017-01-31 06:15] VITALS: BP_SYST 105; BP_SYST 153; BP_DIAS 53; PULSE 18; PULSE 86; RESP 18; TEMP 98.3
[2017-01-31 07:00] VITALS: BP 105/53; PULSE 86; RESP 18; TEMP 98.3; O2SAT 94
[2017-01-31] MEDS: SERTRALINE HCL 50 MG TAB PO SCH (09:46)
[2017-01-31] MEDS: LORazepam 0.5 MG TAB PO SCH ×2 (09:46→20:38)
[2017-01-31] MEDS: PANTOPRAZOLE SOD 40 MG DELAYED RELEASE TAB PO SCH (09:46)
[2017-01-31] MEDS: risperiDONE ODT 2 MG TAB PO SCH ×2 (09:48→17:07)
--- NOTE | 2017-01-31 11:43 | HHI.PYPN ---
Subjective Remarks Patient was seen and case discussed with nursing. Patient interviews in bed. Appears tired and psychomotor retardation. Poor hygiene per nursing. Patient says she does not want a shower because of leg pain. She is interactive but remains grossly confused with memory deficits. Denies auditory or visual hallucinations. Compliant with medications. 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 Inpt. Patient will decompensate in the less restrictive setting Fran Cabral DO Jan 31, 2017 11:43
[2017-01-31] MEDS: QUEtiapine FUMARATE 200 MG TAB PO SCH (20:38)
[2017-01-31 21:16] VITALS: BP 97/62; PULSE 90; TEMP 97.2; O2SAT 97
[2017-02-01 06:02] VITALS: BP 95/53; PULSE 85; TEMP 98.1; O2SAT 96
[2017-02-01] MEDS: LORazepam 0.5 MG TAB PO SCH ×2 (08:50→21:24)
[2017-02-01] MEDS: PANTOPRAZOLE SOD 40 MG DELAYED RELEASE TAB PO SCH (08:50)
[2017-02-01] MEDS: risperiDONE ODT 2 MG TAB PO SCH ×2 (08:52→18:00)
[2017-02-01] MEDS: ACETAMINOPHEN 325 MG TAB PO PRN (08:57)
[2017-02-01] MEDS: SERTRALINE HCL 50 MG TAB PO SCH (08:59)
[2017-02-01] MEDS ORDERED: BISACODYL EC 5 MG TABEC PO PRN (15:30)
--- NOTE | 2017-02-01 15:32 | HHI.PYPN ---
Subjective Remarks Patient seen and examined with nurse in coverage for Dr. Suh. Chart reviewed. Case discussed with nursing staff who reports patient has been no behavioral problem. On my examination today, the patient describes her mood as "not the best, but okay." She denies any suicidal ideation. Denies any audiovisual hallucinations. No evident delusions. Complains of some nausea and constipation, unsure of when her last bowel movement was although the patient's nurse tells me that she has been moving her house fairly regularly. She is passing flatus. Requests a laxative. Denies side effects from medications. Review of Systems ROS Limitations: Poor Historian Except as stated in HPI: all other systems reviewed are Neg Objective Alert: Yes [place]: Person, Place Mood: Calm (perhaps mildly dysphoric) Affect: Appropriate (fairly full and reactive) Memory Intact: Comment (not formally assessed) Hallucinations: Other (no AVH) Delusions: No Delusion Type: Other (no delusions) Suicidal: Ideation (denies suicidal ideation) Homicidal: Ideation (no homicidal ideation) Insight/Judgment Poor Remarks No motor abnormalities noted. Thought process fairly linear. Speech within normal limits for rate, tone and volume. Labs Labs reviewed. 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 I will order bisacodyl as needed for constipation. Continue to monitor on the inpatient unit. Continue other medications and care as ordered. Justification for Cont. Inpt. High risk for decompensation in a restrictive environment. Discharge Planning Counselor informs me that patient's sister is coming from [place] over the weekend to pick patient up for further care up in [place]. Ronald Olivarez MD Feb 01, 2017 15:32
[2017-02-01 20:00] VITALS: BP 101/54; PULSE 78; RESP 16; TEMP 97.1; O2SAT 99
[2017-02-01] MEDS: QUEtiapine FUMARATE 200 MG TAB PO SCH (21:24)
[2017-02-02 05:57] VITALS: BP 101/59; PULSE 78; RESP 18; TEMP 97.9; O2SAT 94
[2017-02-02] MEDS: SERTRALINE HCL 50 MG TAB PO SCH (09:00)
[2017-02-02] MEDS: PANTOPRAZOLE SOD 40 MG DELAYED RELEASE TAB PO SCH (09:12)
[2017-02-02] MEDS: LORazepam 0.5 MG TAB PO SCH ×2 (09:12→21:32)
[2017-02-02] MEDS: risperiDONE ODT 2 MG TAB PO SCH ×2 (09:14→17:50)
--- NOTE | 2017-02-02 15:11 | HHI.PYPN ---
Subjective Remarks Patient seen and examined. Chart reviewed. Case discussed with nurse, counselor and occupational therapist in treatment team. Patient has been no behavioral problems per nursing staff. On my examination today, the patient is calm and pleasant. She does not describe any SI, HI or AVH. She denies side effects from medications. No other issues noted. Review of Systems ROS Limitations: Poor Historian Except as stated in HPI: all other systems reviewed are Neg Objective Alert: Yes [place]: Person, Place Mood: Calm Affect: Euthymic Memory Intact: Comment (not formally assessed) Hallucinations: Other (none) Delusions: No Delusion Type: Other (no delusions) Suicidal: Ideation (no SI) Homicidal: Ideation (no HI) Insight/Judgment Poor Remarks No abnormal motor movements noted Labs Labs reviewed. Vitals/IOs Vital Signs Date Time Temp Pulse Resp B/P Pulse Ox O2 Delivery O2 Flow Rate FiO2 02/02/17 05:57 97.9 78 18 101/59 94 Intake and Output 02/01/17 02/01/17 02/02/17 08:00 16:00 00:00 Intake Total 0 ml 480 ml Balance 0 ml 480 ml Assessment & Plan Problem List: (1) Schizophrenia, undifferentiated ICD Code: F20.3 Assessment & Plan Continue current psychotropics as ordered. Continue to monitor on the inpatient unit. Continue other medications and care as ordered. Justification for Cont. Inpt. Final discharge planning. Discharge Planning Plan is for discharge and his sister's care on Wednesday. Ronald Olivarez MD Feb 02, 2017 15:11
[2017-02-02 18:00] VITALS: BP 94/68; PULSE 91; RESP 16; O2SAT 96
[2017-02-02] MEDS: QUEtiapine FUMARATE 200 MG TAB PO SCH (21:33)
[2017-02-03 05:24] VITALS: BP 103/59; PULSE 78; RESP 18; TEMP 97.8; O2SAT 95
[2017-02-03] MEDS: risperiDONE ODT 2 MG TAB PO SCH ×2 (08:00→17:14)
[2017-02-03] MEDS: DOCUSATE SODIUM 100 MG CAP PO SCH ×2 (09:00→20:07)
--- NOTE | 2017-02-03 09:21 | HHI.PYPN ---
Subjective Remarks Patient seen and examined with nurse. Chart reviewed. Case discussed with nursing staff who reports patient has been no behavioral problem. On my examination today, patient is calm and pleasant. No audiovisual hallucinations , no nakul delusions. She does complain of some ongoing nausea and continues to endorse constipation although she is passing flatus. It appears the bisacodyl that I ordered was placed on hold by the pharmacy, and I have called the pharmacy to correct this. No other physical complaints. No reported side effects from medications. Review of Systems ROS Limitations: Poor Historian Except as stated in HPI: all other systems reviewed are Neg Objective Alert: Yes [place]: Person, Place Mood: Calm Affect: Appropriate Memory Intact: Comment (not formally assessed) Hallucinations: Other (no AVH) Delusions: No Delusion Type: Other (none) Suicidal: Ideation (no SI) Homicidal: Ideation (no HI) Insight/Judgment Poor Remarks No motor abnormalities noted Labs Labs reviewed. Vitals/IOs Vital Signs Date Time Temp Pulse Resp B/P Pulse Ox O2 Delivery O2 Flow Rate FiO2 02/03/17 05:24 97.8 78 18 103/59 95 Intake and Output 02/02/17 02/02/17 02/03/17 08:00 16:00 00:00 Intake Total 1200 ml 960 ml Balance 1200 ml 960 ml Assessment & Plan Problem List: (1) Schizophrenia, undifferentiated ICD Code: F20.3 Assessment & Plan Continue current psychotropics as ordered. Administer laxative and initiate Colace for patient's difficulty with her bowels. I will check an updated sedative basic labs. Continue to monitor on the inpatient unit. Justification for Cont. Inpt. Discharge planning Discharge Planning Anticipate discharge home with sister this weekend. Ronald Olivarez MD Feb 03, 2017 09:21
[2017-02-03] MEDS: LORazepam 0.5 MG TAB PO SCH ×2 (09:39→20:07)
[2017-02-03] MEDS: SERTRALINE HCL 50 MG TAB PO SCH (09:39)
[2017-02-03] MEDS: PANTOPRAZOLE SOD 40 MG DELAYED RELEASE TAB PO SCH (09:39)
[2017-02-03 18:00] VITALS: BP 122/75; PULSE 85; RESP 18; TEMP 97.1; O2SAT 96
[2017-02-03] MEDS: QUEtiapine FUMARATE 200 MG TAB PO SCH (20:07)
[2017-02-04 06:08] VITALS: BP 116/67; PULSE 77; RESP 17; TEMP 96.2; O2SAT 95
[2017-02-04 08:25] LABS: AUTOMATED NEUTROPHIL # 3.3 TH/MM3 (1.8-7.7); BASOPHIL % 0.3 % (0.0-2.0); EOSINOPHIL # 0.2 TH/MM3 (0-0.4); EOSINOPHIL % 3.1 % (0.0-4.0); HEMO FLAGS DIFF FINAL; LYMPH % 38.6 % (9.0-44.0); LYMPHOCYTE # 2.5 TH/MM3 (1.0-4.8); MEAN CELL VOLUME 83.8 FL (80.0-100.0); MEAN CORPUSCULAR HEMOGLOBIN 27.3 PG (27.0-34.0); MEAN CORPUSCULAR HGB CONC 32.6 % (32.0-36.0); MONO % 5.7 % (0.0-8.0); NEUT % 52.3 % (16.0-70.0); PLATELET COUNT 167 TH/MM3 (150-450); RED CELL DISTRIBUTION WIDTH 14.6 % (11.6-17.2); WHITE BLOOD COUNT 6.4 TH/MM3 (4.0-11.0)
[2017-02-04] MEDS: PANTOPRAZOLE SOD 40 MG DELAYED RELEASE TAB PO SCH (08:28)
[2017-02-04] MEDS: SERTRALINE HCL 50 MG TAB PO SCH (08:28)
[2017-02-04] MEDS: DOCUSATE SODIUM 100 MG CAP PO SCH ×2 (08:28→20:54)
[2017-02-04] MEDS: LORazepam 0.5 MG TAB PO SCH ×2 (08:28→20:54)
[2017-02-04] MEDS: risperiDONE ODT 2 MG TAB PO SCH ×2 (08:47→18:26)
[2017-02-04 08:50] LABS: ALT (GPT) 18 U/L (10-53); ANION GAP 11 MEQ/L (5-15); AST (GOT) 14 U/L (15-37); BICARBONATE 24.3 MEQ/L (21.0-32.0); BLOOD UREA NITROGEN 14 MG/DL (7-18); CHLORIDE 108 MEQ/L (98-107); GLOMERULAR FILTRATION RATE 62 ML/MIN (>89); SODIUM (NA) 143 MEQ/L (136-145)
[2017-02-04 08:52] LABS: ALKALINE PHOSPHATASE 71 U/L (45-117); TOTAL BILIRUBIN ADULT 0.6 MG/DL (0.2-1.0)
--- NOTE | 2017-02-04 15:06 | HHI.PYPN ---
Subjective Remarks Patient seen and examined with nurse. Chart reviewed. Case discussed with nursing staff. Ongoing issues with constipation but patient prefers to continue with Colace for now. We have encouraged hydration. Patient denies any audiovisual hallucinations. No suicidal or homicidal ideation. No other physical complaints besides some arthritic pain. No reported side effects from medications. Review of Systems ROS Limitations: Poor Historian Except as stated in HPI: all other systems reviewed are Neg Objective Alert: Yes [place]: Person, Place Mood: Calm Affect: Blunted Memory Intact: Comment (not formally assessed) Hallucinations: Other (denies AVH) Delusions: No Delusion Type: Other (no delusions) Suicidal: Ideation (no SI) Homicidal: Ideation (no HI) Insight/Judgment Poor Remarks No motor abnormalities noted Labs Test 02/04/17 07:46 White Blood Count 6.4 TH/MM3 Red Blood Count 4.90 MIL/MM3 Hemoglobin 13.4 GM/DL Hematocrit 41.0 % Mean Corpuscular Volume 83.8 FL Mean Corpuscular Hemoglobin 27.3 PG Mean Corpuscular Hemoglobin 32.6 % Concent Red Cell Distribution Width 14.6 % Platelet Count 167 TH/MM3 Mean Platelet Volume 10.5 FL Neutrophils (%) (Auto) 52.3 % Lymphocytes (%) (Auto) 38.6 % Monocytes (%) (Auto) 5.7 % Eosinophils (%) (Auto) 3.1 % Basophils (%) (Auto) 0.3 % Neutrophils # (Auto) 3.3 TH/MM3 Lymphocytes # (Auto) 2.5 TH/MM3 Monocytes # (Auto) 0.4 TH/MM3 Eosinophils # (Auto) 0.2 TH/MM3 Basophils # (Auto) 0.0 TH/MM3 CBC Comment DIFF FINAL Differential Comment Sodium Level 143 MEQ/L Potassium Level 4.0 MEQ/L Chloride Level 108 MEQ/L Carbon Dioxide Level 24.3 MEQ/L Anion Gap 11 MEQ/L Blood Urea Nitrogen 14 MG/DL Creatinine 1.08 MG/DL Estimat Glomerular Filtration 62 ML/MIN Rate Random Glucose 108 MG/DL Calcium Level 9.8 MG/DL Total Bilirubin 0.6 MG/DL Aspartate Amino Transf 14 U/L (AST/SGOT) Alanine Aminotransferase 18 U/L (ALT/SGPT) Alkaline Phosphatase 71 U/L Total Protein 8.0 GM/DL Albumin 3.7 GM/DL CBC unremarkable. CMP reveals improved renal function. Labs reviewed. 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 Continue to monitor on the inpatient unit. Continue other medications and care as ordered. Justification for Cont. Inpt. Final discharge planning Discharge Planning Plan is for home with sister, Wednesday. Ronald Olivarez MD Feb 04, 2017 15:06
[2017-02-04 18:41] VITALS: BP 95/53; PULSE 95; RESP 21; TEMP 97.2; O2SAT 95
[2017-02-04] MEDS: QUEtiapine FUMARATE 200 MG TAB PO SCH (20:54)
[2017-02-05 06:13] VITALS: BP 88/50; PULSE 81; RESP 16; TEMP 98.5; O2SAT 95
[2017-02-05] MEDS: risperiDONE ODT 2 MG TAB PO SCH ×2 (08:23→18:00)
[2017-02-05] MEDS: SERTRALINE HCL 50 MG TAB PO SCH (08:23)
[2017-02-05] MEDS: PANTOPRAZOLE SOD 40 MG DELAYED RELEASE TAB PO SCH (08:23)
[2017-02-05] MEDS: DOCUSATE SODIUM 100 MG CAP PO SCH ×2 (08:23→21:50)
[2017-02-05] MEDS: LORazepam 0.5 MG TAB PO SCH ×2 (08:23→21:50)
[2017-02-05 09:00] VITALS: BP 101/63; PULSE 86; RESP 12; TEMP 98.1; O2SAT 94
[2017-02-05] MEDS ORDERED: DOCU1CAP39 PO (14:05)
[2017-02-05] MEDS ORDERED: ZOLO50TA PO (14:05)
[2017-02-05] MEDS ORDERED: QUET1TAB9 PO (14:05)
[2017-02-05] MEDS ORDERED: RISPM2 PO (14:05)
[2017-02-05] MEDS ORDERED: LORA-392 PO (14:05)
--- NOTE | 2017-02-05 14:05 | HHI.DS ---
Psychiatry Discharge Summary Inpatient Psychiatric care?: Yes Advance Directive: No Reason Not Provided: aphasic Mental Health AdvanceDirective: No Health Care Proxy: No Admission Admission Date Dec 04, 2016 at 14:35 Admission Diagnosis: (1) Unspecified psychosis ICD Code: F29 Brief History The patient is a 61 year-old woman with a known psychiatric history, who was admitted for isopropyl alcohol ingestion, possible toxic overdose, presented with hypertension. Seen by me initially on 12/03/2016 and no changes in her mental status and psychiatric presentation have happened since then. Patient is still refusing to talk, she is alert, attends she has a good eye contact, she does her primary necessities, she feed herself, she goes to the back she is compliant with medication on and off, but she refuses to talk. Other than this selective mutism, the patient does not display aggressive or disorganized behavior, agitation, internal preoccupation, self- talking at the moment of this evaluation. Last night Halicat was activated due to hypertensive crisis. During this evaluation there is no evidence of alcohol withdrawal symptoms. Tobacco Use In Past 30 Days: Cognitive Impairment Alcohol Use: Never Hospital Course Patient was admitted to a locked, inpatient psychiatric unit. Appropriate precautions were in place throughout patient's hospital stay. A general medical consultation was obtained. Patient was seen and examined daily on the unit by psychiatry and also visited by counselor. Medications were adjusted. Patient tolerated medications well without side effects. Patient had improvement in her presenting psychiatric symptomatology during the course of her hospital stay. Counselor has worked with patient's sister to arrange for discharge into [facility] tomorrow, Wednesday. On my examination today: Patient seen and examined. Chart reviewed. Case discussed with nursing staff who reports patient has been no behavioral problem. Patient is in good spirits when I go to speak with her. I can elicit no depressive or hypomanic/manic symptoms. She denies any audiovisual hallucinations, and I can elicit no delusional beliefs. She denies any suicidal or homicidal ideation, intent or plan. She denies any side effects from medications. Weighing the acute, chronic, and protective factors and based on the available evidence, I judged a reasonable degree of medical certainty that the patient is at low imminent risk of harm to self or others from a mental illness as defined under the [place] act and her level of function is adequate for planned level of outpatient care. Patient has maximized benefit from this inpatient psychiatric hospital stay and will be discharged into sister's care tomorrow. Patient follow-up psychiatrically as arranged by counselor. Patient also follow-up with primary care. Patient to return to the psychiatric emergency room for any concerning psychiatric symptoms. Results Blood Pressure 101 / 63 Vital Signs Date Time Temp Pulse Resp B/P Pulse Ox O2 Delivery O2 Flow Rate FiO2 02/05/17 09:00 98.1 86 12 101/63 94 Laboratory Tests Test 02/04/17 07:46 Chloride Level 108 MEQ/L (98-107) Creatinine 1.08 MG/DL (0.50-1.00) Estimat Glomerular Filtration 62 ML/MIN (>89) Rate Random Glucose 108 MG/DL (74-106) Aspartate Amino Transf 14 U/L (15-37) (AST/SGOT) Summary of Procedures None done Imaging None done Pending results at discharge: No Medications # of Antipsychotic meds at D/C: 2 Appropriate >1 Antipsych meds?: 4 Approp Antipsych med options 1 - Minimum of three failed multiple trials of monotherapy. 2 - Documented plan to taper to monotherapy due to previous use of multiple meds OR cross-taper in progress at D/C. 3 - Documentation of augmentation of Clozapine. 4 - Justification other than those listed in allowable values 1-3, document here : Inadequate response to monotherapy Discharge Discharge Date: Feb 05, 2017 Discharge Diagnosis: (1) Schizophrenia, undifferentiated Diagnosis: [place] ( stabilized) ICD Code: F20.3 Mental Status Exam at Disch Patient is in hospital gown. She is fairly well groomed and maintaining basic hygiene. She is awake and alert and oriented to person and hospital at least. No evidence of delirium. No abnormal motor movements noted. Speech is within normal limits for rate, tone and volume. Mood is good and affect is euthymic, full and reactive. Thought process linear. No loosening of associations. No delusional material. Denies audiovisual hallucinations. Denies suicidal or homicidal ideation, intent or plan. Insight and judgment are poor, likely chronically so Pt Condition on Discharge: Stable Discharge Disposition: Discharge Home Discharge Instructions Diet Instructions: Heart Healthy Diet Activities you can perform: Weight Bearing as Marni Scheduled Appointment: as per counselor's notes New Medications: Docusate Sodium (Dok) 100 Mg Cap 100 MG PO BID Constipation Days 30 Ref 0 CAP Lorazepam (Ativan) 0.5 Mg Tab 0.5 MG PO BID Mental Health Days 30 Ref 0 TAB Pantoprazole (Pantoprazole) 40 Mg Tab 40 MG PO DAILY Stomach acid Days 30 Ref 0 TAB Quetiapine (Quetiapine) 200 Mg Tab 200 MG PO HS Mental Health Days 30 Ref 0 TAB Risperidone Odt (Risperdal M-Tab) 2 Mg Tab 2 MG PO DAILY@08,18 Mental Health Days 30 Ref 0 TAB Sertraline (Zoloft) 50 Mg Tab 25 MG PO DAILY Mental Health Days 30 Ref 0 TAB Discharge Time <= 30 minutes Discharge/Advance Care Plan Health Problems: (1) Schizophrenia, undifferentiated Goals to promote your health * To prevent worsening of your condition and complications * To maintain your health at the optimal level Directions to meet your goals Take your medications as prescribed Follow your dietary instruction Follow activity as directed Keep your appointments as scheduled Take your immunizations and boosters as scheduled If your symptoms worsen call your PCP, if no PCP go to Urgent Care Center or Emergency Room For 03/05 questions related to your inpatient stay or results of tests pending at discharge, please contact Dr. Ronald Olivarez at Smoking is Dangerous to Your Health. Avoid second hand smoking Ronald Olivarez MD Feb 05, 2017 14:05
[2017-02-05 18:00] VITALS: BP 99/52; PULSE 89; RESP 19; TEMP 97.9; O2SAT 96
[2017-02-05] MEDS: QUEtiapine FUMARATE 200 MG TAB PO SCH (21:50)
[2017-02-06] MEDS ORDERED: LORazepam 1 MG TAB PO SCH (06:00)
[2017-02-06 06:23] VITALS: BP 133/90; PULSE 89; RESP 18; TEMP 98.5; O2SAT 97
== END 2017-02-06 07:15 | disposition home or self-care (01) | DRG 885 ==
LOC: H4EA 14:35 → H270 12-09 16:10 → H250 12-09 22:45
PROVIDERS: ADMIT Psychiatry & Neurology Psychiatry; ATTEND Psychiatry & Neurology Psychiatry
DX: F20.3 Undifferentiated schizophrenia (principal); N39.0 Urinary tract infection, site not specified; R03.0 Elevated blood-pressure reading, without diagnosis of hypertension; R00.0 Tachycardia, unspecified; E87.6 Hypokalemia; K59.00 Constipation, unspecified; B96.20 Unspecified Escherichia coli [E. coli] as the cause of diseases classified elsewhere; R11.0 Nausea; Z91.14 Patient's other noncompliance with medication regimen
CPT/HCPCS: 80048; 80053; 80061; 81001; 83036; 83690; 85025; 87077; 87086; 87186; 93005; J0696